=== PATIENT | male | born 1965 | race Caucasian/White ===

== ENCOUNTER 2016-07-20 06:58 | Outpatient (CLI) ==
--- NOTE | 2016-07-20 12:46 | MRI ---
EXAM: MRI of the left shoulder without contrast COMPARISON: MRI of the left shoulder 07/12/2015. Left shoulder radiographs 07/05/2015. HISTORY: Left shoulder pain with decreased range of motion. Rotator cuff repair in January,. Fall in June 2015. TECHNIQUE: Multiplanar noncontrast MR images of the left shoulder were acquired using a 1.2 [employer]lesh[employer] m [employer]. FINDINGS: There is marked supraspinatus tendinosis with moderate to marked infraspinatus and subsca pularis tendinosis as well. There is a progressive partial-thickness articular surface/rim rent tea r of the anterior insertional fibers of the supraspinatus measuring 1.4 x 0.9 cm extent with a near full-thickness component. There appear to be some thin residual intact bursal surface fibers at calvin t level. Small partial-thickness/intrasubstance tear with small intramuscular cyst involving the in fraspinatus at the critical zone and myotendinous junction. Thinning and articular surface irregula rity of the distal subscapularis consistent with a progressive partial-thickness articular surface t ear with intact bursal surface fibers identified. Moderate amount of fluid in the subacromial/subdel toid bursa. Limited assessment of the glenoid labrum on this non arthrographic study. Intrasubstance degenerati on and suspect superimposed tear of the superior posterior glenoid labrum. Mild glenohumeral joint osteoarthrosis without acute fracture dislocation. Small joint effusion. The long head of the biceps is located within the bicipital groove with tendinosis and tenosynovitis . Hypertrophic degenerative changes of the acromioclavicular joint with marginal osteophytes. Suscepti bility artifact adjacent the acromioclavicular joint with question of previous acromioplasty. There is a type 1 acromion. Small joint effusion with a defect involving the inferior acromioclavicular joint capsule which may be postoperative in nature. Question resection of the undersurface of the d istal clavicle. No abnormal widening of the acromioclavicular joint space.. IMPRESSION: 1. Marked rotator cuff tendinosis. Progressive insertional tear of the supraspinatus with a near f ull-thickness articular surface component. There is also a progressive partial-thickness articular surface tear of the distal subscapularis in addition to stable appearance of a partial-thickness/int rasubstance tear of the infraspinatus. 2. Fluid in the subacromial/subdeltoid bursa. 3. Hypertrophic degenerative changes of the acromioclavicular joint with findings suggesting previo us subacromial decompression. 4. Long head biceps tendinosis and tenosynovitis. 5. Intrasubstance degeneration and suspected superimposed tear of the superior to posterior glenoid labrum as described.
== END 2016-07-20 06:59 | disposition home or self-care (01) ==
LOC: RAD 06:58
PROVIDERS: ATTEND Orthopaedic Surgery
DX: S46.012D Strain of muscle(s) and tendon(s) of the rotator cuff of left shoulder, subsequent encounter (principal)

== ENCOUNTER 2016-09-06 08:15 | Outpatient (RCR) ==
--- NOTE | 2016-08-22 10:36 | RS.OPPTEV2 ---
Date of Note: 08/21/16 Visit #: 1 Date of Evaluation: 08/21/16 Payer Source: Workman's Comp Treatment Diagnosis: Left shoulder pain, s/p left shoulder debridement December 2015 History of Condition/Mechanism of Injury:: Patient notes that he fell at work on 07-02-15. Patient caught his fall with the left upper extremity. He attended Outpatient PT in August 2015 for treatment of the shoulder. He then had left shoulder debridement on 01/04/16 and attended Outpatient PT for ROM and strengthening. Reports pain has never gone away. Prior Level of Function.....Patient was independent with: ADL's, Self Care, Work /Vocation, Caregiving, Ambulation/Mobility, Community Integration/Access Functional Limitations: Sleep, Self Care, ADL's, Reaching, Pushing, Pulling, Lifting, Carrying Current Subjective/complaints:: Patient states his left shoulder has never quit hurting. States now it hurts in a different location. Reports pain at the lateral shoulder joint with certain movements of the shoulder. He is working and tries to avoid activities that increase his pain. He works at [employer] and his duties consist of various activities, such as swinging a sledgehammer, heavy lifting, and overhead work. He received a cortisone injection on and states it did not make a difference in his pain. States any reaching or working above chest height is painful. Treatment Side (optional): Left Medical History Medical History: Hypertension, Diabetes Smoking Status: Current every day smoker Patient's Goals: His goal is to get relief of left shoulder pain. Pain Assessment - Pain Description Pain Location: L shoulder Pain Description: Sharp, Aching Current Pain Intensity: mild at rest, increases with ROM above 80 degrees scaption and abduction Worst Pain Intensity: not rated Functional Outcome Measure UE Functional Index: 52 (52/80=35% impairment) - G Codes & Severity Modifier G Codes & Modifier: NA Source of G Code score: NA Observation - Observation Posture: Forward Head, Rounded Shoulders Handedness: Right Shoulder ROM: Right WFL's Shoulder Muscle Strength: Right WFL's - Left Shoulder ROM Comments: Patient demonstrates full PROM and AROM throughout the left shoulder. Reports pain beginning at ~80 degrees of scaption and abduction, and continues throughout further ROM. Right elbow, wrist, and hand AROM is WFL's. - Right Shoulder ROM Comments: Pain with resisted abduction and scaption. Demonstrates 4+/5 into abduction and scaption. All else demonstrates 4+ to 5/5 throughout. - Special Tests Shoulder Empty Can (Supraspinatus) Test: Positive Left Shoulder Speed's Sign Test: Positive Left Shoulder Drop Arm Test: Negative Left Shoulder Singh-Christopher Impingement Test: Positive Left Palpation Comments:: Patient reports tenderness and his most specific area of pain being over the insertion site of the supraspinatus and infraspinatus tendons. No tenderness reported over long head of the biceps tendon. Sensation - Sensation Right Upper Extremity: Intact/Normal Left Upper Extremity: Intact/Normal - Treatment Modality: Ultrasound Parameters/Method Applied: 1.5 w/cm2 continuous X 10 mins over insertion site of supraspinatus and infraspinatus tendons of left shoulder. Patient Position: Sitting Interventions - Exercise/Activities/Manual Therapy Exercises/Activities: Patient instructed in pendulum and resisted ER with green theraband for HEP. Manual Therapy: N/A HOME EXERCISE PROGRAM: pendulum and resisted ER with green theraband - Charges Total Direct Minutes: 45 mins Total Treatment Time: 45 mins Procedures billed for this date of service:: KEYLA Resendez, US Assessment Assessment: Patient presents to therapy with a diagnosis of Traumatic tear of the left rotator cuff, subsequent encounter. He reports pain in the lateral region of the shoulder joint, more specifically over the insertion sites of the supraspinatus and infraspinatus tendons. He has pain and difficulty performing reaching at and above chest height into scaption. He demonstrates potential to benefit from therapeutic activities, including strengthening of humeral depressors, and modalities to reduce his pain with ROM. Patient Education: Education of diagnosis, Body/Joint mechanics, Home Exercise Program, Home Safety, Activity Modification, Education of Plan of Care Rehab Potential: Good Short Term Goals Goal #1: Pt independent and compliant with basic HEP. Goal to be met by: 09/05/16 Goal #2: Right shoulder AROM into scaption with minimal discomfort. Goal to be met by: 09/05/16 Goal #3: Pt to demonstrate good postural awareness. Goal to be met by: 09/05/16 Goal #4: Tenderness at right shoulder joint decreased to minimal. Goal to be met by: 09/05/16 Skilled Nursing Goals Goal #1: Pt knows HEP and to continue exercises after D/C from therapy. Goal to be met by: 09/21/16 Goal #2: Score on UE functional scale improved to < 20% impairment. Goal to be met by: 09/21/16 Goal #3: Pt able to use right UE for all ADL's and reaching activities without pain. Goal to be met by: 09/21/16 Goal #4: Pt able to perform all work duties without difficulty or pain. Goal to be met by: 09/21/16 Plan - Treatment to be Provided Procedures: Therapeutic Exercises, Therapeutic Activity, Manual Therapy, Patient Education Modalities: Electrical Stimulation, Ultrasound/Phonophoresis, Cryotherapy, Hot Packs - Treatment Plan Frequency: 3 X week Duration: 3 weeks ORDER # VISITS AND/OR THROUGH DATE: 09/21/16 - Treatment Code (1) Left shoulder pain Qualifiers: Chronicity: chronic Qualified Description: Chronic left shoulder pain Qualifier Code(s): (M25.512) Pain in left shoulder (2) S/P shoulder surgery Comments: Z98.890
--- NOTE | 2016-08-22 11:36 | RS.OPPTDN ---
Subjective Date of Note: 08/22/16 Visit #: 2 Date of Evaluation: 08/21/16 Payer Source: Workman's Comp Treatment Diagnosis: Left shoulder pain, s/p left shoulder debridement December 2015 Current Subjective/complaints:: Patient pleasant ,cooperative,reports the most intense pain is with shoulder abduction. Pain Assessment - Pain Description Pain Location: L shoulder Pain Description: Sharp, Aching Current Pain Intensity: mild at rest, increases with ROM above 80 degrees scaption and abduction - Treatment Modality: Ultrasound Parameters/Method Applied: 10 mins. @ 1.5 w/cm2 ,continuous mode to L shoulder, RTC tendon insertion site. Patient Position: Sitting - Heat/Cryotherapy Treatment: Hot Pack (20 mins. prior to US) Interventions - Exercise/Activities/Manual Therapy Exercises/Activities: Reviewed HEP in pendulum and resisted ER with green theraband for HEP,while receiving US today. Total minutes of Exercise: 0 Manual Therapy: N/A Total minutes of Manual Therapy: 0 HOME EXERCISE PROGRAM: pendulum and resisted ER with green theraband - Charges Total Direct Minutes: 10 Total Treatment Time: 30 Procedures billed for this date of service:: hp,US Assessment: Abbreviated treatment today due to patient having to be elsewhere by 8:45 Am.He has good understanding of HEP,and to avoid any exercise that causes sharp or debilitating pain. Patient Education: Home Exercise Program, Home Safety, Education of Plan of Care Patient demonstrates compliance with HEP?: Yes Short Term Goals Goal #1: Pt independent and compliant with basic HEP. Goal to be met by: 09/05/16 Progress towards Goal:: Progressing Goal #2: Right shoulder AROM into scaption with minimal discomfort. Goal to be met by: 09/05/16 Goal #3: Pt to demonstrate good postural awareness. Goal to be met by: 09/05/16 Goal #4: Tenderness at right shoulder joint decreased to minimal. Goal to be met by: 09/05/16 Nursing Home Goals Goal #1: Pt knows HEP and to continue exercises after D/C from therapy. Goal to be met by: 09/21/16 Goal #2: Score on UE functional scale improved to < 20% impairment. Goal to be met by: 09/21/16 Goal #3: Pt able to use right UE for all ADL's and reaching activities without pain. Goal to be met by: 09/21/16 Goal #4: Pt able to perform all work duties without difficulty or pain. Goal to be met by: 09/21/16 Plan PLAN OF CARE EXPIRES ON:: 09/21/16 ORDER # VISITS AND/OR THROUGH DATE: 09/21/16 PLAN: Continue Plan of Care
--- NOTE | 2016-08-24 09:07 | RS.OPPTDN ---
Subjective Date of Note: 08/24/16 Visit #: 3 Date of Evaluation: 08/21/16 Payer Source: Workman's Comp Treatment Diagnosis: Left shoulder pain, s/p left shoulder debridement December 2015 Current Subjective/complaints:: Patient reports increased throbbing in the L UE after last session,has moderate pain today. Pain Assessment - Pain Description Pain Location: L shoulder Pain Description: Sharp, Throbbing, Aching Current Pain Intensity: 5/10 - Treatment Modality: Ultrasound Parameters/Method Applied: 10 mins. @ 1.5 w/cm2,continuous mode to L shoulder Patient Position: Sitting - Heat/Cryotherapy Treatment: Hot Pack (20 mins. prior to US,exercise) Interventions - Exercise/Activities/Manual Therapy Exercises/Activities: 10 mins. PROM to AAROM for flex/ext,IR/ER,scaption, abduction. Total minutes of Exercise: 10 Manual Therapy: N/A Total minutes of Manual Therapy: 0 HOME EXERCISE PROGRAM: pendulum and resisted ER with green theraband - Charges Total Direct Minutes: 20 Total Treatment Time: 40 Procedures billed for this date of service:: hp,US,ex 1 Assessment: Patient reports no pain with passive motion,but consistently has pain today with attempting to keep the L UE abducted,also with assistance the pain is still present.He reports no pain with pendulum exercises at home. Patient Education: Body/Joint mechanics, Home Exercise Program, Home Safety, Activity Modification Patient demonstrates compliance with HEP?: Yes Short Term Goals Goal #1: Pt independent and compliant with basic HEP. Goal to be met by: 09/05/16 Progress towards Goal:: Progressing Goal #2: Right shoulder AROM into scaption with minimal discomfort. Goal to be met by: 09/05/16 Goal #3: Pt to demonstrate good postural awareness. Goal to be met by: 09/05/16 Progress towards Goal:: Progressing Goal #4: Tenderness at right shoulder joint decreased to minimal. Goal to be met by: 09/05/16 Management Technician Goals Goal #1: Pt knows HEP and to continue exercises after D/C from therapy. Goal to be met by: 09/21/16 Progress towards goal: Progressing Goal #2: Score on UE functional scale improved to < 20% impairment. Goal to be met by: 09/21/16 Goal #3: Pt able to use L UE for all ADL's and reaching activities without pain. Goal to be met by: 09/21/16 Goal #4: Pt able to perform all work duties without difficulty or pain. Goal to be met by: 09/21/16 Plan PLAN OF CARE EXPIRES ON:: 09/21/16 ORDER # VISITS AND/OR THROUGH DATE: 09/21/16 PLAN: Continue Plan of Care
--- NOTE | 2016-08-28 11:27 | RS.OPPTDN ---
Subjective Date of Note: 08/28/16 Visit #: 4 Date of Evaluation: 08/21/16 Payer Source: Workman's Comp Treatment Diagnosis: Left shoulder pain, s/p left shoulder debridement December 2015 Current Subjective/complaints:: Patient reports having to use a paul-hammer at work last night and having increased left shoulder pain today. Reports pain at the posterior shoulder joint with trigger point release of the infraspinatus and teres minor. Pain Assessment - Pain Description Pain Location: L shoulder Pain Description: Sharp, Throbbing, Aching Current Pain Intensity: 5/10 - Treatment Modality: Ultrasound Parameters/Method Applied: [id number] at 1.5w/cm2 to the left shoulder joint with focus around the infraspinatus. Patient Position: Sitting - Heat/Cryotherapy Treatment: Hot Pack ([id number] to the left shoulder joint prior to US and EX. Patient in sitting. ) Interventions - Exercise/Activities/Manual Therapy Exercises/Activities: [id number]. PROM to AAROM for flex/ext, IR/ER, scaption, and abduction. Isometrics for left shoulder IR and ER in neutral. Total minutes of Exercise: 10mins Manual Therapy: x5mins Trigger point release left shoulder posterior joint for infraspinatus and teres minor. Total minutes of Manual Therapy: 5mins HOME EXERCISE PROGRAM: pendulum and resisted ER with green theraband - Charges Total Direct Minutes: 27mins Total Treatment Time: 47mins Procedures billed for this date of service:: HP, US, EX Assessment: Patient with increased soreness following use of heavy tools at work. Patient with active trigger points in posterior joint. Patient Education: Body/Joint mechanics, Home Exercise Program Patient demonstrates compliance with HEP?: Yes Short Term Goals Goal #1: Pt independent and compliant with basic HEP. Goal to be met by: 09/05/16 Progress towards Goal:: Progressing Goal #2: Right shoulder AROM into scaption with minimal discomfort. Goal to be met by: 09/05/16 Goal #3: Pt to demonstrate good postural awareness. Goal to be met by: 09/05/16 Progress towards Goal:: Progressing Goal #4: Tenderness at right shoulder joint decreased to minimal. Goal to be met by: 09/05/16 Snf Goals Goal #1: Pt knows HEP and to continue exercises after D/C from therapy. Goal to be met by: 09/21/16 Progress towards goal: Progressing Goal #2: Score on UE functional scale improved to < 20% impairment. Goal to be met by: 09/21/16 Goal #3: Pt able to use L UE for all ADL's and reaching activities without pain. Goal to be met by: 09/21/16 Goal #4: Pt able to perform all work duties without difficulty or pain. Goal to be met by: 09/21/16 Plan PLAN OF CARE EXPIRES ON:: 09/21/16 ORDER # VISITS AND/OR THROUGH DATE: 09/21/16 PLAN: Continue Plan of Care (Continue modalities and progress exercise to reduce pain and increase functional activity level.)
--- NOTE | 2016-08-30 10:02 | RS.OPPTDN ---
Subjective Date of Note: 08/30/16 Visit #: 5 Date of Evaluation: 08/21/16 Payer Source: Workman's Comp Treatment Diagnosis: Left shoulder pain, s/p left shoulder debridement December 2015 Current Subjective/complaints:: Patient reports continued soreness at the posterior left shoulder joint. He reports discomfort at superior joint with active assisted abduction, scaption, and ER, mainly above shoulder height. Pain Assessment - Pain Description Pain Location: L shoulder Pain Description: Sharp, Throbbing, Aching Current Pain Intensity: 5/10 - Treatment Modality: Ultrasound Parameters/Method Applied: [id number] at 1.5w/cm2 to the left shoulder joint prior to EX. Patient Position: Sitting - Heat/Cryotherapy Treatment: Hot Pack ([id number] to the left shoulder prior to US and EX. Patient in sitting. ) Interventions - Exercise/Activities/Manual Therapy Exercises/Activities: [id number]. PROM to AAROM for flex/ext, IR/ER, scaption, abduction, and horizontal abduction. Isometrics for left shoulder IR, ER, adduction, and extension all in neutral multiple reps. Total minutes of Exercise: 17mins Manual Therapy: [id number] Trigger point release left shoulder posterior joint for infraspinatus and teres minor. Also to traps with stretching. Patient in sitting. Total minutes of Manual Therapy: 10mins HOME EXERCISE PROGRAM: pendulum and resisted ER with green theraband - Charges Total Direct Minutes: 39mins Total Treatment Time: 59mins Procedures billed for this date of service:: HP, US, EX, MT Assessment: Patient continues to have pain with left shoulder ROM above shoulder height. He is able to progress resistance with isometrics. Patient Education: Body/Joint mechanics, Home Exercise Program, Home Safety Patient demonstrates compliance with HEP?: Yes Short Term Goals Goal #1: Pt independent and compliant with basic HEP. Goal to be met by: 09/05/16 Progress towards Goal:: Progressing Goal #2: Right shoulder AROM into scaption with minimal discomfort. Goal to be met by: 09/05/16 Progress towards Goal:: No Change Goal #3: Pt to demonstrate good postural awareness. Goal to be met by: 09/05/16 Progress towards Goal:: Progressing Goal #4: Tenderness at right shoulder joint decreased to minimal. Goal to be met by: 09/05/16 Slot Key Person Goals Goal #1: Pt knows HEP and to continue exercises after D/C from therapy. Goal to be met by: 09/21/16 Progress towards goal: Progressing Goal #2: Score on UE functional scale improved to < 20% impairment. Goal to be met by: 09/21/16 Goal #3: Pt able to use L UE for all ADL's and reaching activities without pain. Goal to be met by: 09/21/16 Goal #4: Pt able to perform all work duties without difficulty or pain. Goal to be met by: 09/21/16 Plan PLAN OF CARE EXPIRES ON:: 09/21/16 ORDER # VISITS AND/OR THROUGH DATE: 09/21/16 PLAN: Continue Plan of Care (Continue modalities and exercise to reduce pain and increase ability to perform all work duties.)
--- NOTE | 2016-09-01 09:40 | RS.OPPTDN ---
Subjective Date of Note: 09/01/16 Visit #: 6 Date of Evaluation: 08/21/16 Payer Source: Workman's Comp Treatment Diagnosis: Left shoulder pain, s/p left shoulder debridement December 2015 Current Subjective/complaints:: Patient reports continued discomfort at the posterior shoulder joint with movement and manual pressure. Pain in the superior shoulder joint with active and light resistive work. Pain Assessment - Pain Description Pain Location: L shoulder Pain Description: Sharp, Throbbing, Aching Current Pain Intensity: 5/10 - Treatment Modality: Ultrasound Parameters/Method Applied: [id number] at 1.5w/cm2 to the left shoulder with focus at superior and posterior joint prior to EX. Patient Position: Sitting - Heat/Cryotherapy Treatment: Hot Pack ([id number] to the left shoulder prior to US and EX. Patient in sitting. ) Interventions - Exercise/Activities/Manual Therapy Exercises/Activities: [id number]. PROM to AAROM for flex/ext, IR/ER, scaption, abduction, and horizontal abduction. Isometrics for left shoulder IR, ER, adduction, and extension all in neutral multiple reps. Gree theraband for bilateral shoulder ER, 2s/10reps. Attempts to hold manual resistance with left shoulder at 90 degrees flexion and in "empty-can" position. Total minutes of Exercise: 18mins Manual Therapy: [id number] Trigger point release left shoulder posterior joint for infraspinatus and teres minor. Also to trap trigger point release. Patient in sitting. Total minutes of Manual Therapy: 10mins HOME EXERCISE PROGRAM: pendulum and resisted ER with green theraband - Charges Total Direct Minutes: 40mins Total Treatment Time: 55mins Procedures billed for this date of service:: HP, US, EX, MT Assessment: Patient continues to have pain with resistance exercise. PROM is good with only min discomfort at end range. Patient Education: Body/Joint mechanics, Home Exercise Program, Activity Modification Comments: Reviewed dx, joint mechanics, and safety with work duties. Patient demonstrates compliance with HEP?: Yes Short Term Goals Goal #1: Pt independent and compliant with basic HEP. Goal to be met by: 09/05/16 (100%) Progress towards Goal:: Met Goal #2: Right shoulder AROM into scaption with minimal discomfort. Goal to be met by: 09/05/16 Progress towards Goal:: No Change Goal #3: Pt to demonstrate good postural awareness. Goal to be met by: 09/05/16 (50%) Progress towards Goal:: Progressing Goal #4: Tenderness at right shoulder joint decreased to minimal. Goal to be met by: 09/05/16 Progress towards Goal:: No Change Counseling Aide Goals Goal #1: Pt knows HEP and to continue exercises after D/C from therapy. Goal to be met by: 09/21/16 Progress towards goal: Progressing Goal #2: Score on UE functional scale improved to < 20% impairment. Goal to be met by: 09/21/16 Goal #3: Pt able to use L UE for all ADL's and reaching activities without pain. Goal to be met by: 09/21/16 Goal #4: Pt able to perform all work duties without difficulty or pain. Goal to be met by: 09/21/16 Progress towards goal: No Change Plan PLAN OF CARE EXPIRES ON:: 09/21/16 ORDER # VISITS AND/OR THROUGH DATE: 09/21/16 PLAN: Continue Plan of Care (Continue modalties and progress exercise to reduce pain and increase functional activities.)
--- NOTE | 2016-09-05 10:06 | RS.OPPTDN ---
Subjective Date of Note: 09/05/16 Visit #: 7 Date of Evaluation: 08/21/16 Payer Source: Workman's Comp Treatment Diagnosis: Left shoulder pain, s/p left shoulder debridement December 2015 Current Subjective/complaints:: Reports the L shoulder is about the same,still inpain and tender to palpate. Pain Assessment - Pain Description Pain Location: L shoulder Pain Description: Sharp, Throbbing, Aching Current Pain Intensity: 5/10 - Treatment Modality: Ultrasound Parameters/Method Applied: 10 mins. @ 1.5 w/cm2 ,continuous mode to L TRC insertion site. Patient Position: Supine - Heat/Cryotherapy Treatment: Hot Pack (20 mins. prior to US and ex.) Interventions - Exercise/Activities/Manual Therapy Exercises/Activities: [id number]. PROM to AAROM for flex/ext, IR/ER, scaption, abduction, and horizontal abduction. Isometrics for left shoulder IR, ER, adduction, and extension all in neutral multiple reps.Patient education for RTC anatomy,watched video using his cell phone and discussed the mechanics of the shoulder. Total minutes of Exercise: 25 Manual Therapy: NA Total minutes of Manual Therapy: 0 HOME EXERCISE PROGRAM: pendulum and resisted ER with green theraband - Charges Total Direct Minutes: 35 Total Treatment Time: 55 Procedures billed for this date of service:: ,US ex 2 Assessment: Patient has functional passive motion in all directions,tolerates isometrics with outpain ,except for resisted abduction elicits sharp pain.He continues to have pain at insertion site of supraspinatus with maintaining active shoulder abduction. Patient Education: Education of diagnosis, Body/Joint mechanics, Home Exercise Program, Home Safety, Activity Modification, Education of Plan of Care Patient demonstrates compliance with HEP?: Yes Short Term Goals Goal #1: Pt independent and compliant with basic HEP. Goal to be met by: 09/05/16 (100%) Progress towards Goal:: Met Goal #2: Right shoulder AROM into scaption with minimal discomfort. Goal to be met by: 09/05/16 Progress towards Goal:: No Change Goal #3: Pt to demonstrate good postural awareness. Goal to be met by: 09/05/16 Progress towards Goal:: Progressing Goal #4: Tenderness at right shoulder joint decreased to minimal. Goal to be met by: 09/05/16 Progress towards Goal:: No Change Rn Residential Goals Goal #1: Pt knows HEP and to continue exercises after D/C from therapy. Goal to be met by: 09/21/16 Progress towards goal: Progressing Goal #2: Score on UE functional scale improved to < 20% impairment. Goal to be met by: 09/21/16 Goal #3: Pt able to use L UE for all ADL's and reaching activities without pain. Goal to be met by: 09/21/16 Goal #4: Pt able to perform all work duties without difficulty or pain. Goal to be met by: 09/21/16 Progress towards goal: No Change Plan PLAN OF CARE EXPIRES ON:: 09/21/16 ORDER # VISITS AND/OR THROUGH DATE: 09/21/16 Comments:: Has follow-up appt. with Dr. Alvarez tomorrow.
--- NOTE | 2016-09-06 09:18 | RS.OPPTDN ---
Subjective Date of Note: 09/06/16 Visit #: 8 Date of Evaluation: 08/21/16 Payer Source: Workman's Comp Treatment Diagnosis: Left shoulder pain, s/p left shoulder debridement December 2015 Current Subjective/complaints:: Patient reports continued pain with active left shoulder abduction. Describes as a sharp pinch. Also, continue discomfort at the posterior shoulder joint with mod manual pressure with trigger point release. States pain was aggravated when he had to use a paul-hammer last week at work. Pain Assessment - Pain Description Pain Location: L shoulder Pain Description: Sharp, Throbbing, Aching Current Pain Intensity: 5/10 - Treatment Modality: Ultrasound Parameters/Method Applied: [id number] at 1.5w/cm2 to the left shoulder joint prior to EX and MT. Patient Position: Supine - Heat/Cryotherapy Treatment: Hot Pack ([id number] to the left shoulder prior to US and EX. Patient in supine today. ) Interventions - Exercise/Activities/Manual Therapy Exercises/Activities: [id number]. PROM to AAROM for flex/ext, IR/ER, scaption, abduction, and horizontal abduction. Isometrics for left shoulder IR, ER, adduction, and extension all in neutral multiple reps. Reviewed RTC mechancis and safety precautions. Total minutes of Exercise: 20mins Manual Therapy: 10mins trigger point release along infraspinatus and posterior joint musculature. Total minutes of Manual Therapy: 10mins HOME EXERCISE PROGRAM: pendulum, resisted ER with green theraband, isometrics all directions - Objective Findings Observations,measurements,etc.: Patient limited to approx 80 degrees left shoulder abduction due to pain. PROM WFL but limited due to discomfort at end range. - Charges Total Direct Minutes: 40mins Total Treatment Time: 60mins Procedures billed for this date of service:: HP, US, EX, MT Assessment: Modalites and manual therapy have given patient some relief of pain but no significant improvement overall. Patient continue to be limited due to pain with active abduction. Patient Education: Education of diagnosis, Body/Joint mechanics, Home Exercise Program, Home Safety, Activity Modification Patient demonstrates compliance with HEP?: Yes Short Term Goals Goal #1: Pt independent and compliant with basic HEP. Goal to be met by: 09/05/16 (100%) Progress towards Goal:: Met Goal #2: Right shoulder AROM into scaption with minimal discomfort. Goal to be met by: 09/05/16 Progress towards Goal:: No Change Goal #3: Pt to demonstrate good postural awareness. Goal to be met by: 09/05/16 Progress towards Goal:: Met Goal #4: Tenderness at right shoulder joint decreased to minimal. Goal to be met by: 09/05/16 Progress towards Goal:: No Change Nursing Home Goals Goal #1: Pt knows HEP and to continue exercises after D/C from therapy. Goal to be met by: 09/21/16 Progress towards goal: Progressing Goal #2: Score on UE functional scale improved to < 20% impairment. Goal to be met by: 09/21/16 Progress towards goal: No Change Goal #3: Pt able to use L UE for all ADL's and reaching activities without pain. Goal to be met by: 09/21/16 Progress towards goal: No Change Goal #4: Pt able to perform all work duties without difficulty or pain. Goal to be met by: 09/21/16 Progress towards goal: No Change Plan PLAN OF CARE EXPIRES ON:: 09/21/16 ORDER # VISITS AND/OR THROUGH DATE: 09/21/16 PLAN: Hold (Patient will return to physician for follow-up appointment. It is anticipated patient will be sent for further testing or treatment due to lack of progress and continued pain.)
== END 2016-09-08 ==
PROVIDERS: ATTEND Orthopaedic Surgery
DX: S46.012D Strain of muscle(s) and tendon(s) of the rotator cuff of left shoulder, subsequent encounter (principal)

== ENCOUNTER → 2016-11-08 | Outpatient (RCR) ==
--- NOTE | 2016-10-20 16:45 | RS.OPPTEV2 ---
Date of Note: 10/20/16 Visit #: 1 Date of Evaluation: 10/20/16 Payer Source: Workman's Comp Surgery Performed?: Yes Date of Procedure: 10/18/16 Treatment Diagnosis: Left shoulder pain, left shoulder stiffness, s/p RTC repair History of Condition/Mechanism of Injury:: Patient notes that he injured his left shoulder at work on 07-02-15. He had left shoulder debridement on 01/04/16 and attended Outpatient PT for ROM and strengthening. Continued shoulder pain led to the need for further surgery. Prior Level of Function.....Patient was independent with: ADL's, Self Care, Work /Vocation, Caregiving, Ambulation/Mobility, Community Integration/Access Functional Limitations: Sleep, Self Care, ADL's, Reaching, Pushing, Pulling, Lifting, Carrying Current Subjective/complaints:: Patient reports having surgery two days ago. States he has not removed the dressing. States he is taking his pain medication as ordered. He is wearing his sling constantly. States his will not let him drive. Patient reports most pain currently in the left upper traps. States he has a cryocuff, but has not used it much yet because he didn' t think any cold would get to the shoulder through the thick dressing. Treatment Side (optional): Left Medical History Medical History: Hypertension, Diabetes Smoking Status: Current every day smoker Hx Home Medications: Percocet,Keflex,crestor,cozaar Patient's Goals: His goal is to return to his previous level of function. Pain Assessment - Pain Description Pain Location: L shoulder Current Pain Intensity: 8/10 Worst Pain Intensity: 10/10 Functional Outcome Measure UE Functional Index: 13 (13/80=83.75% impairment) - G Codes & Severity Modifier G Codes & Modifier: NA Source of G Code score: Na Observation - Observation Inspection: Patient presents to therapy with a sling on the left shoulder. Upon removal of the sling, he demonstrates a thick pressure dressing the the shoulder. Upon removal of the dressing, he exhibits 3 scope sites with sutures in place. Demonstrates no drainage. Posture: Forward Head, Rounded Shoulders Handedness: Right Shoulder ROM: Left WFL's Shoulder Muscle Strength: Left WFL's - Right Shoulder ROM Comments: Patient tolerates passive left shoulder flexion and abduction to 85- 90 degrees. IR & ER passively 15-20 degrees. Full elbow ROM. Sensation - Sensation Right Upper Extremity: Intact/Normal Left Upper Extremity: Intact/Normal - Heat/Cryotherapy Treatment: Cryotherapy (X 15 mins to left shoulder following EVAL) Interventions - Exercise/Activities/Manual Therapy Exercises/Activities: Patient received PROM into all directions . Total minutes of Exercise: 15 mins Manual Therapy: NA HOME EXERCISE PROGRAM: pendulum, gentle scapula retraction, squeeze ball - Charges Total Direct Minutes: 48 mins Total Treatment Time: 58 mins Procedures billed for this date of service:: EVAL Low, CP Assessment Assessment: Patient presents 2 days s/p left shoulder SAD, DCR, RTC repair, labrum debridement, and biceps tenotomy. He exhibits limited PROM in all directions. He scores himself 83% impaired with use of the left UE at this time. He is unable to use the left UE for selfcare, ADL's, or any other home or work functional activities. He will benefit from skilled therapy to progress exercises as tolerated and per his surgeon's protocol to help him return to his prior level of function. Patient Education: Education of diagnosis, Body/Joint mechanics, Home Exercise Program, Home Safety, Activity Modification, Education of Plan of Care Rehab Potential: Good Short Term Goals Goal #1: Pt independent and compliant with basic HEP. Goal to be met by: 11/03/16 Goal #2: PROM of the left shoulder WFL's. Goal to be met by: 11/03/16 Goal #3: Patient able to tolerate PROM with minimal reports of pain. Goal to be met by: 11/03/16 Goal #4: Pt to demonstrate good postural awareness. Goal to be met by: 11/03/16 Assisted Goals Goal #1: Pt knows HEP and to continue exercises after D/C from therapy. Goal to be met by: 01/18/17 Goal #2: Score on UE functional scale improved to < 20% impairment. Goal to be met by: 01/18/17 Goal #3: Pt to use left UE for all selfcare, ADL's, and functional reaching w/o pain Goal to be met by: 01/18/17 Goal #4: Pt able to return to work with minimal limitations. Goal to be met by: 01/18/17 Plan - Treatment to be Provided Procedures: Therapeutic Exercises, Therapeutic Activity, Manual Therapy, Patient Education Modalities: Electrical Stimulation, Ultrasound/Phonophoresis, Cryotherapy, Hot Packs - Treatment Plan Frequency: 3 X week Duration: 12 weeks ORDER # VISITS AND/OR THROUGH DATE: 01/18/17 - Treatment Code (1) Shoulder pain Qualifiers: Laterality: left Chronicity: acute Qualified Description: Acute pain of left shoulder Qualifier Code(s): (M25.512) Pain in left shoulder (2) Stiffness of right shoulder joint Comments: M25.611 (3) S/P shoulder surgery Comments: Z98.890
--- NOTE | 2016-10-23 10:46 | RS.OPPTDN ---
Subjective Date of Note: 10/23/16 Visit #: 2 Date of Evaluation: 10/20/16 Payer Source: Workman's Comp Treatment Diagnosis: Left shoulder pain, left shoulder stiffness, s/p RTC repair Current Subjective/complaints:: Patient states he is sleeping in his recliner. Reports he has taken his pain meds this morning and was able to drive to his appt. 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 Asks when he can play golf or pool. Pain Assessment - Pain Description Pain Location: L shoulder Current Pain Intensity: Does not rate, pain pill prior to PT. Describes "sore" - Heat/Cryotherapy Treatment: Cryotherapy (20 mins after therex to the L shoulder in supine) Interventions - Exercise/Activities/Manual Therapy Exercises/Activities: PROM all dir of L shoulder, elbow sup/pron, in supine. Active wrist motions, 5 and 7# digiflexors x 10 each. Education of diagnosis and precautions/abiding by protocol. 25 mins Total minutes of Exercise: 25 Manual Therapy: NA HOME EXERCISE PROGRAM: pendulum, gentle scapula retraction, squeeze ball - Charges Total Direct Minutes: 25 Total Treatment Time: 45 Procedures billed for this date of service:: cp, ex2 Assessment: Patient appears to olegario all therex well. He is able to relax and no guarding except for with eccentric shoulder flexion intermittently. He has been working on instructed HEP. He is eager to return to golf and pool and was told to ask his ortho at follow up 11/08/16. Patient Education: Education of diagnosis, Body/Joint mechanics, Home Exercise Program, Home Safety, Activity Modification, Education of Plan of Care Short Term Goals Goal #1: Pt independent and compliant with basic HEP. Goal to be met by: 11/03/16 Goal #2: PROM of the left shoulder WFL's. Goal to be met by: 11/03/16 Goal #3: Patient able to tolerate PROM with minimal reports of pain. Goal to be met by: 11/03/16 Goal #4: Pt to demonstrate good postural awareness. Goal to be met by: 11/03/16 Manager Managing Goals Goal #1: Pt knows HEP and to continue exercises after D/C from therapy. Goal to be met by: 01/18/17 Goal #2: Score on UE functional scale improved to < 20% impairment. Goal to be met by: 01/18/17 Goal #3: Pt to use left UE for all selfcare, ADL's, and functional reaching w/o pain Goal to be met by: 01/18/17 Goal #4: Pt able to return to work with minimal limitations. Goal to be met by: 01/18/17 Plan PLAN OF CARE EXPIRES ON:: 01/16/17 ORDER # VISITS AND/OR THROUGH DATE: 01/18/17 PLAN: Progress Exercises
--- NOTE | 2016-10-25 15:26 | RS.OPPTDN ---
Subjective Date of Note: 10/25/16 Visit #: 3 Date of Evaluation: 10/20/16 Payer Source: Workman's Comp Treatment Diagnosis: Left shoulder pain, left shoulder stiffness, s/p RTC repair Current Subjective/complaints:: Patient reports some increased left neck and shoulder discomfort this morning. States he feels he slept wrong. Reports shoulder feels better follwoing PROM. Pain Assessment - Pain Description Pain Location: L shoulder Current Pain Intensity: 5/10 average this morning - Heat/Cryotherapy Treatment: Cryotherapy ([id number] to left shoulder prior to EX and [id number] following EX. Patient in supine. ) Interventions - Exercise/Activities/Manual Therapy Exercises/Activities: PROM all dir of L shoulder, elbow, and wrist with patient in supine. Active wrist motions. Shoulder shrugs and scap retraction. Assisted cervical lateral flexion stretching. Reveiwed safety and HEP of [place]. Total minutes of Exercise: 30mins Manual Therapy: NA HOME EXERCISE PROGRAM: pendulum, gentle scapula retraction, squeeze ball, cervical lateral flexion stretching. - Charges Total Direct Minutes: 30mins Total Treatment Time: 55mins Procedures billed for this date of service:: CP, EX2 Assessment: Patient progressing with PROM. Patient Education: Body/Joint mechanics, Home Exercise Program, Home Safety Patient demonstrates compliance with HEP?: Yes Short Term Goals Goal #1: Pt independent and compliant with basic HEP. Goal to be met by: 11/03/16 Progress towards Goal:: Progressing Goal #2: PROM of the left shoulder WFL's. Goal to be met by: 11/03/16 Progress towards Goal:: Progressing Goal #3: Patient able to tolerate PROM with minimal reports of pain. Goal to be met by: 11/03/16 Progress towards Goal:: Progressing Goal #4: Pt to demonstrate good postural awareness. Goal to be met by: 11/03/16 Half-Way Goals Goal #1: Pt knows HEP and to continue exercises after D/C from therapy. Goal to be met by: 01/18/17 Goal #2: Score on UE functional scale improved to < 20% impairment. Goal to be met by: 01/18/17 Goal #3: Pt to use left UE for all selfcare, ADL's, and functional reaching w/o pain Goal to be met by: 01/18/17 Goal #4: Pt able to return to work with minimal limitations. Goal to be met by: 01/18/17 Plan PLAN OF CARE EXPIRES ON:: 01/18/17 ORDER # VISITS AND/OR THROUGH DATE: 01/18/17 PLAN: Continue Plan of Care
--- NOTE | 2016-10-27 12:13 | RS.OPPTDN ---
Subjective Date of Note: 10/27/16 Visit #: 4 Date of Evaluation: 10/20/16 Payer Source: Workman's Comp Treatment Diagnosis: Left shoulder pain, left shoulder stiffness, s/p RTC repair Current Subjective/complaints:: Patient reports increased discomfort in the left shoulder and scapular region that kept him from sleeping last night. Patient reports feeling much better following manual therapy. Pain Assessment - Pain Description Pain Location: L shoulder Current Pain Intensity: 7/10 average this morning - Heat/Cryotherapy Treatment: Cryotherapy ([id number] prior to and [id number] following EX and MT. Patient in supine. ) Interventions - Exercise/Activities/Manual Therapy Exercises/Activities: PROM all directions of L shoulder, elbow, and wrist with patient in supine. Active wrist motions. Shoulder shrugs and scap retraction. Assisted cervical lateral flexion stretching. Reveiwed safety precautions and HEP. Total minutes of Exercise: [id number] Manual Therapy: [id number] to the left traps and along the mid scapular border. Trigger point release. Total minutes of Manual Therapy: 15mins HOME EXERCISE PROGRAM: pendulum, gentle scapula retraction, squeeze ball, cervical lateral flexion stretching. - Charges Total Direct Minutes: 30mins Total Treatment Time: 55mins Procedures billed for this date of service:: CP, EX2 Assessment: Patient with flair-up of symptoms but responds to manual therapy. Patient Education: Home Exercise Program, Home Safety, Activity Modification Comments: Reviewed dx, mechanics and safety precautions. Patient demonstrates compliance with HEP?: Yes Short Term Goals Goal #1: Pt independent and compliant with basic HEP. Goal to be met by: 11/03/16 Progress towards Goal:: Progressing Goal #2: PROM of the left shoulder WFL's. Goal to be met by: 11/03/16 Progress towards Goal:: Progressing Goal #3: Patient able to tolerate PROM with minimal reports of pain. Goal to be met by: 11/03/16 Progress towards Goal:: Progressing Goal #4: Pt to demonstrate good postural awareness. Goal to be met by: 11/03/16 Senior Living Goals Goal #1: Pt knows HEP and to continue exercises after D/C from therapy. Goal to be met by: 01/18/17 Goal #2: Score on UE functional scale improved to < 20% impairment. Goal to be met by: 01/18/17 Goal #3: Pt to use left UE for all selfcare, ADL's, and functional reaching w/o pain Goal to be met by: 01/18/17 Goal #4: Pt able to return to work with minimal limitations. Goal to be met by: 01/18/17 Plan PLAN OF CARE EXPIRES ON:: 01/18/17 ORDER # VISITS AND/OR THROUGH DATE: 01/18/17 PLAN: Continue Plan of Care (Continue with ROM and plan for removal of sutures on Sunday as it will be post-op day 12.)
--- NOTE | 2016-10-30 10:56 | RS.OPPTDN ---
Subjective Date of Note: 10/30/16 Visit #: 5 Date of Evaluation: 10/20/16 Payer Source: Workman's Comp Treatment Diagnosis: Left shoulder pain, left shoulder stiffness, s/p RTC repair Current Subjective/complaints:: Patient reports continued discomfort in the left shoulder blade area and into shoulder joint. Pain Assessment - Pain Description Pain Location: L shoulder Current Pain Intensity: moderate Other Comments regarding Pain:: States he continues to take pain meds as prescribed to manage pain. - Heat/Cryotherapy Treatment: Cryotherapy ([id number] to the left shoulder prior to EX and [id number] following. Patient in supine. ) Interventions - Exercise/Activities/Manual Therapy Exercises/Activities: PROM all directions of L shoulder, elbow, and wrist with patient in supine. Active wrist motions. Shoulder shrugs and scap retraction. Assisted cervical lateral flexion stretching. Reveiwed safety precautions and HEP. Total minutes of Exercise: 15mins Manual Therapy: [id number] to the left traps and along the mid scapular border. Trigger point release. Total minutes of Manual Therapy: 10mins HOME EXERCISE PROGRAM: pendulum, gentle scapula retraction, squeeze ball, cervical lateral flexion stretching. - Objective Findings Observations,measurements,etc.: Patients 3 incision sites around the left shoulder joint prepped and cleaned with povidone iodine swab, then sutures removed and steri-strips applied. 5mins - Charges Total Direct Minutes: 30mins Total Treatment Time: 55mins Procedures billed for this date of service:: CP, EX, MT Assessment: Patient continues to have discomfort right upper shoulder and scapular region. Patient Education: Body/Joint mechanics, Home Exercise Program, Home Safety, Activity Modification Patient demonstrates compliance with HEP?: Yes Short Term Goals Goal #1: Pt independent and compliant with basic HEP. Goal to be met by: 11/03/16 Progress towards Goal:: Progressing Goal #2: PROM of the left shoulder WFL's. Goal to be met by: 11/03/16 Progress towards Goal:: Progressing Goal #3: Patient able to tolerate PROM with minimal reports of pain. Goal to be met by: 11/03/16 Progress towards Goal:: Progressing Goal #4: Pt to demonstrate good postural awareness. Goal to be met by: 11/03/16 Progress towards Goal:: Progressing Digital Controls Technical Officer Goals Goal #1: Pt knows HEP and to continue exercises after D/C from therapy. Goal to be met by: 01/18/17 Goal #2: Score on UE functional scale improved to < 20% impairment. Goal to be met by: 01/18/17 Goal #3: Pt to use left UE for all selfcare, ADL's, and functional reaching w/o pain Goal to be met by: 01/18/17 Goal #4: Pt able to return to work with minimal limitations. Goal to be met by: 01/18/17 Plan PLAN OF CARE EXPIRES ON:: 01/18/17 ORDER # VISITS AND/OR THROUGH DATE: 01/18/17 PLAN: Continue Plan of Care
--- NOTE | 2016-10-30 11:37 | RS.CSNOTE ---
PT Case Note Date of Note: 10/30/16 Note: Patients Exhibition Organiser Adelia called to discuss patients increased pain and muscle spasms in left shoulder blade and upper back. States patient has asked about going for a massage. She asked if therapy can do this during treatment sessions. Advised Exhibition Organiser that manual therapy was on POC and we had been working on some trigger point release and will increase manual therapy as needed.
--- NOTE | 2016-11-01 09:32 | RS.OPPTDN ---
Subjective Date of Note: 11/01/16 Visit #: 6 Date of Evaluation: 10/20/16 Payer Source: Workman's Comp Treatment Diagnosis: Left shoulder pain, left shoulder stiffness, s/p RTC repair Current Subjective/complaints:: Patient reports feeling much better today. States muscle spasms have improved with manual therapy. Spoke with Dr. Quiroga's office concerning protocol and was advised patient will receive a detailed protocol at first follow-up appointment on November 07. Pain Assessment - Pain Description Pain Location: L shoulder Current Pain Intensity: mild to moderate - Heat/Cryotherapy Treatment: Cryotherapy ([id number] to the left shoulder prior to EX. Patient in supine. ) Interventions - Exercise/Activities/Manual Therapy Exercises/Activities: PROM all directions of L shoulder, elbow, and wrist with patient in supine. Active wrist motions. Shoulder shrugs and scap retraction. Assisted cervical lateral flexion stretching. Assisted patient with table slide motion of short flexion/extension. Reveiwed safety precautions and HEP. Total minutes of Exercise: 14mins Manual Therapy: [id number] to the left traps and along the mid scapular border. Trigger point release. Total minutes of Manual Therapy: 10mins HOME EXERCISE PROGRAM: pendulum, gentle scapula retraction, squeeze ball, cervical lateral flexion stretching. - Objective Findings Observations,measurements,etc.: Passive left shoulder flexion to 142 degrees, abd to 95 degrees, and ER to approx 45 degrees. - Charges Total Direct Minutes: 24mins Total Treatment Time: 44mins Procedures billed for this date of service:: CP, EX, MT Assessment: Patient progressing well with PROM and responding to manual therapy. Patient Education: Body/Joint mechanics, Home Exercise Program, Activity Modification Patient demonstrates compliance with HEP?: Yes Short Term Goals Goal #1: Pt independent and compliant with basic HEP. Goal to be met by: 11/03/16 Progress towards Goal:: Progressing Goal #2: PROM of the left shoulder WFL's. Goal to be met by: 11/03/16 Progress towards Goal:: Progressing Goal #3: Patient able to tolerate PROM with minimal reports of pain. Goal to be met by: 11/03/16 Progress towards Goal:: Progressing Goal #4: Pt to demonstrate good postural awareness. Goal to be met by: 11/03/16 Progress towards Goal:: Progressing Intermediate Goals Goal #1: Pt knows HEP and to continue exercises after D/C from therapy. Goal to be met by: 01/18/17 Goal #2: Score on UE functional scale improved to < 20% impairment. Goal to be met by: 01/18/17 Goal #3: Pt to use left UE for all selfcare, ADL's, and functional reaching w/o pain Goal to be met by: 01/18/17 Goal #4: Pt able to return to work with minimal limitations. Goal to be met by: 01/18/17 Plan PLAN OF CARE EXPIRES ON:: 01/18/17 ORDER # VISITS AND/OR THROUGH DATE: 01/18/17 PLAN: Continue Plan of Care
--- NOTE | 2016-11-03 10:00 | RS.OPPTDN ---
Subjective Date of Note: 11/03/16 Visit #: 7 Date of Evaluation: 10/20/16 Payer Source: Workman's Comp Treatment Diagnosis: Left shoulder pain, left shoulder stiffness, s/p RTC repair Current Subjective/complaints:: Patient states that he is feeling better today. Reports he has improved flexibility, but most of his pain is now at the L scapula. Pain Assessment - Pain Description Pain Location: L shoulder Current Pain Intensity: does not rate, but says it is much better than last session - Heat/Cryotherapy Treatment: Cryotherapy (20 mins to the L shoulder in supine prior and after therex) Interventions - Exercise/Activities/Manual Therapy Exercises/Activities: PROM all directions of L shoulder, elbow, and wrist with patient in supine. Active wrist motions. Shoulder shrugs and scap retraction. Assisted cervical lateral flexion stretching. Assisted patient with table slide motion of short flexion/extension. Reveiwed safety precautions and HEP. Total minutes of Exercise: 25 Manual Therapy: [id number] to the left traps and along the mid scapular border. Trigger point release. HOME EXERCISE PROGRAM: pendulum, gentle scapula retraction, squeeze ball, cervical lateral flexion stretching. - Charges Total Direct Minutes: 25 Total Treatment Time: 60 Procedures billed for this date of service:: cp, ex2 Assessment: Patient demo good PROM all directions to WFL and mostly pain free. He is having less overall pain to the L UE, but is now experiencing intermittent soreness to the L scapula. He has intermittent popping to during passive shoulder flexion/ext. Patient Education: Education of diagnosis, Body/Joint mechanics, Home Exercise Program, Home Safety, Activity Modification, Education of Plan of Care Patient demonstrates compliance with HEP?: Yes Short Term Goals Goal #1: Pt independent and compliant with basic HEP. Goal to be met by: 11/03/16 Progress towards Goal:: Progressing Goal #2: PROM of the left shoulder WFL's. Goal to be met by: 11/03/16 Progress towards Goal:: Progressing Goal #3: Patient able to tolerate PROM with minimal reports of pain. Goal to be met by: 11/03/16 Progress towards Goal:: Progressing Goal #4: Pt to demonstrate good postural awareness. 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 Goal to be met by: 01/18/17 Goal #2: Score on UE functional scale improved to < 20% impairment. Goal to be met by: 01/18/17 Goal #3: Pt to use left UE for all selfcare, ADL's, and functional reaching w/o pain Goal to be met by: 01/18/17 Goal #4: Pt able to return to work with minimal limitations. Goal to be met by: 01/18/17 Plan PLAN OF CARE EXPIRES ON:: 01/18/17 ORDER # VISITS AND/OR THROUGH DATE: 01/18/17 PLAN: Progress Exercises
--- NOTE | 2016-11-08 09:41 | RS.OPPTDN ---
Subjective Date of Note: 11/08/16 Visit #: 8 Date of Evaluation: 10/20/16 Payer Source: Workman's Comp Treatment Diagnosis: Left shoulder pain, left shoulder stiffness, s/p RTC repair Current Subjective/complaints:: Patient reports physician was pleased with his progress at his follow-up appointment yesterday. Patient present orders to continue and states he is to wear sling one more week. Reports left shoulder feels much better following PROM and manual therapy to the scapular region. Pain Assessment - Pain Description Pain Location: L shoulder Current Pain Intensity: does not rate, but says it is much better than last session - Heat/Cryotherapy Treatment: Cryotherapy ([id number] prior to and 10mins following EX. Patient in supine. ) Interventions - Exercise/Activities/Manual Therapy Exercises/Activities: PROM all directions of L shoulder, elbow, and wrist with patient in supine. Active wrist motions. Shoulder shrugs and scap retraction. Assisted cervical lateral flexion stretching. Total minutes of Exercise: 20mins Manual Therapy: [id number] to the left traps and along the mid scapular border. Trigger point release. Total minutes of Manual Therapy: 10mins HOME EXERCISE PROGRAM: pendulum, gentle scapula retraction, squeeze ball, cervical lateral flexion stretching. - Charges Total Direct Minutes: 30mins Total Treatment Time: 55mins Procedures billed for this date of service:: CP, EX, MT Assessment: Patient reporting reduction in shoulder discomfort and muscle spasms at mid scapula. Patient Education: Body/Joint mechanics, Home Exercise Program, Home Safety Patient demonstrates compliance with HEP?: Yes Short Term Goals Goal #1: Pt independent and compliant with basic HEP. Goal to be met by: 11/03/16 (50%) Progress towards Goal:: Progressing Goal #2: PROM of the left shoulder WFL's. Goal to be met by: 11/03/16 (75%) Progress towards Goal:: Progressing Goal #3: Patient able to tolerate PROM with minimal reports of pain. Goal to be met by: 11/03/16 (100%) Progress towards Goal:: Met Goal #4: Pt to demonstrate good postural awareness. Goal to be met by: 11/03/16 Progress towards Goal:: Progressing Stem Lead Former Goals Goal #1: Pt knows HEP and to continue exercises after D/C from therapy. Goal to be met by: 01/18/17 Goal #2: Score on UE functional scale improved to < 20% impairment. Goal to be met by: 01/18/17 Goal #3: Pt to use left UE for all selfcare, ADL's, and functional reaching w/o pain Goal to be met by: 01/18/17 Goal #4: Pt able to return to work with minimal limitations. Goal to be met by: 01/18/17 Plan PLAN OF CARE EXPIRES ON:: 01/18/17 ORDER # VISITS AND/OR THROUGH DATE: 01/18/17 PLAN: Continue Plan of Care (Continue PROM this week and progress to AAROM next week per orders.)
== END ==
PROVIDERS: ATTEND Orthopaedic Surgery Sports Medicine
DX: Z51.89 Encounter for other specified aftercare (principal); S46.012D Strain of muscle(s) and tendon(s) of the rotator cuff of left shoulder, subsequent encounter; M25.512 Pain in left shoulder; M25.611 Stiffness of right shoulder, not elsewhere classified; Z98.890 Other specified postprocedural states

== ENCOUNTER 2016-12-07 08:00 | Outpatient (RCR) ==
--- NOTE | 2016-11-10 11:02 | RS.OPPTDN ---
Subjective Date of Note: 11/10/16 Visit #: 9 Date of Evaluation: 10/20/16 Payer Source: Workman's Comp Treatment Diagnosis: Left shoulder pain, left shoulder stiffness, s/p RTC repair Current Subjective/complaints:: Patient reports continued muscle tension and spasms in the left scapular region which he feels is due to wearing sling. States he has reduced pain and muscle tension following PROM and manual therapy. Pain Assessment - Pain Description Pain Location: L shoulder Current Pain Intensity: mod soreness shoulder joint and scapular region - Heat/Cryotherapy Treatment: Cryotherapy ([id number] to left shoulder joint prior to EX and 10mins following. Patient in supine. ) Interventions - Exercise/Activities/Manual Therapy Exercises/Activities: PROM all directions of L shoulder, elbow, and wrist with patient in supine. Active wrist motions. Shoulder shrugs and scap retraction. Assisted cervical lateral flexion stretching. Total minutes of Exercise: 15mins Manual Therapy: [id number] to the left traps and along the mid scapular border. Trigger point release. Total minutes of Manual Therapy: 10mins HOME EXERCISE PROGRAM: pendulum, gentle scapula retraction, squeeze ball, cervical lateral flexion stretching. - Objective Findings Observations,measurements,etc.: Patient demos passive left shoulder flexion to 155 degrees, abduction to 120 degrees, and ER to 65 degrees. - Charges Total Direct Minutes: 25mins Total Treatment Time: 50mins Procedures billed for this date of service:: CP, EX, MT Assessment: Patient continues to report reduction in pain and muscle tension with PROM and manual therapy. Will progress to AAROM next week per physicians orders. Patient Education: Body/Joint mechanics, Home Exercise Program, Home Safety, Activity Modification Patient demonstrates compliance with HEP?: Yes Short Term Goals Goal #1: Pt independent and compliant with basic HEP. Goal to be met by: 11/03/16 (60%) Progress towards Goal:: Progressing Goal #2: PROM of the left shoulder WFL's. Goal to be met by: 11/03/16 (90%) Progress towards Goal:: Progressing Goal #3: Patient able to tolerate PROM with minimal reports of pain. Goal to be met by: 11/03/16 (100%) Progress towards Goal:: Met Goal #4: Pt to demonstrate good postural awareness. 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 Goal to be met by: 01/18/17 Goal #2: Score on UE functional scale improved to < 20% impairment. Goal to be met by: 01/18/17 Goal #3: Pt to use left UE for all selfcare, ADL's, and functional reaching w/o pain Goal to be met by: 01/18/17 Goal #4: Pt able to return to work with minimal limitations. Goal to be met by: 01/18/17 Plan PLAN OF CARE EXPIRES ON:: 01/18/17 ORDER # VISITS AND/OR THROUGH DATE: 01/18/17 PLAN: Continue Plan of Care (Continue PROM and progress to AAROM next week.)
--- NOTE | 2016-11-13 10:38 | RS.OPPTDN ---
Subjective Date of Note: 11/13/16 Visit #: 10 Date of Evaluation: 10/20/16 Payer Source: Workman's Comp Treatment Diagnosis: Left shoulder pain, left shoulder stiffness, s/p RTC repair Current Subjective/complaints:: Patient reports improvement in let shoulder discomfort with PROM today. States he continues to have increased muscle tension in the left shoulder blade area which he feels is due to wearing sling. Pain Assessment - Pain Description Pain Location: L shoulder Current Pain Intensity: mod soreness shoulder joint and scapular region - Heat/Cryotherapy Treatment: Cryotherapy ([id number] prior to and 10mins following EX. Patient in supine. ) Interventions - Exercise/Activities/Manual Therapy Exercises/Activities: PROM all directions left shoulder, elbow, and wrist. Shoulder shrugs and scap retraction. Light isometric wrist and elbow flexion and extension. Total minutes of Exercise: 15mins Manual Therapy: [id number] to the left traps and along the mid scapular border. Trigger point release. Total minutes of Manual Therapy: 10mins HOME EXERCISE PROGRAM: pendulum, gentle scapula retraction, squeeze ball, cervical lateral flexion stretching. - Objective Findings Observations,measurements,etc.: Demos approx 170 degrees left shoulder flexion. - Charges Total Direct Minutes: 25mins Total Treatment Time: 50mins Procedures billed for this date of service:: CP, EX, MT Assessment: Patient progressing well with PROM. He will be able to progress to AAROM next session. Patient Education: Education of diagnosis, Body/Joint mechanics, Home Exercise Program, Activity Modification Patient demonstrates compliance with HEP?: Yes Short Term Goals Goal #1: Pt independent and compliant with basic HEP. Goal to be met by: 11/03/16 (60%) Progress towards Goal:: Progressing Goal #2: PROM of the left shoulder WFL's. Goal to be met by: 11/03/16 (100%) Progress towards Goal:: Met Goal #3: Patient able to tolerate PROM with minimal reports of pain. Goal to be met by: 11/03/16 (100%) Progress towards Goal:: Met Goal #4: Pt to demonstrate good postural awareness. Goal to be met by: 11/03/16 (50%) Progress towards Goal:: Progressing Alf Goals Goal #1: Pt knows HEP and to continue exercises after D/C from therapy. Goal to be met by: 01/18/17 Goal #2: Score on UE functional scale improved to < 20% impairment. Goal to be met by: 01/18/17 Goal #3: Pt to use left UE for all selfcare, ADL's, and functional reaching w/o pain Goal to be met by: 01/18/17 Goal #4: Pt able to return to work with minimal limitations. Goal to be met by: 01/18/17 Plan PLAN OF CARE EXPIRES ON:: 01/18/17 ORDER # VISITS AND/OR THROUGH DATE: 01/18/17 PLAN: Continue Plan of Care (Continue and progress with AAROM next session per physicians orders.)
--- NOTE | 2016-11-15 11:51 | RS.OPPTDN ---
Subjective Date of Note: 11/15/16 Visit #: 11 Date of Evaluation: 10/20/16 Payer Source: Workman's Comp Treatment Diagnosis: Left shoulder pain, left shoulder stiffness, s/p RTC repair Current Subjective/complaints:: Reports left shoulder feels better after exercise today. Pain Assessment - Pain Description Pain Location: L shoulder Current Pain Intensity: mod soreness shoulder joint and scapular region - Heat/Cryotherapy Treatment: Cryotherapy ([id number] prior to EX. Patient in sitting. ) Interventions - Exercise/Activities/Manual Therapy Exercises/Activities: [id number] PROM all directions left shoulder, elbow, and wrist. Isometric shoulder add, ext, abd, IR and ER. Isometric triceps and bicep , wrist flexion and extension. Began wand for overhead shoulder flexion and ER in supine. Isometric horizontal adduction with ball between hands and shoulder joints at 90 degrees. In sitting, assisted left shoulder flexion, scaption, and short abduction. Wand for flexion to 90 degrees and short range ER. Controlled extension with assist from overhead to promote eccentric contraction of left shoulder. Shoulder shrugs and scap retraction. Total minutes of Exercise: 30mins Manual Therapy: [id number] to the left traps, along the mid scapular border, and posterior shoulder joint for trigger point release. Total minutes of Manual Therapy: 10mins HOME EXERCISE PROGRAM: pendulum, gentle scapula retraction, squeeze ball, cervical lateral flexion stretching. Wand for shoulder flexion and ER in supine and to shoulder height in sitting. - Charges Total Direct Minutes: 40mins Total Treatment Time: 55mins Procedures billed for this date of service:: CP, EX2, MT Assessment: Patient tolerates initiation of active assist exercise well. Patient Education: Body/Joint mechanics, Home Exercise Program, Home Safety, Activity Modification Patient demonstrates compliance with HEP?: Yes Short Term Goals Goal #1: Pt independent and compliant with basic HEP. Goal to be met by: 11/03/16 (70%) Progress towards Goal:: Progressing Goal #2: PROM of the left shoulder WFL's. Goal to be met by: 11/03/16 (100%) Progress towards Goal:: Met Goal #3: Patient able to tolerate PROM with minimal reports of pain. Goal to be met by: 11/03/16 (100%) Progress towards Goal:: Met Goal #4: Pt to demonstrate good postural awareness. Goal to be met by: 11/03/16 (55%) Progress towards Goal:: Progressing Intermediate Goals Goal #1: Pt knows HEP and to continue exercises after D/C from therapy. Goal to be met by: 01/18/17 Progress towards goal: Progressing Goal #2: Score on UE functional scale improved to < 20% impairment. Goal to be met by: 01/18/17 Goal #3: Pt to use left UE for all selfcare, ADL's, and functional reaching w/o pain Goal to be met by: 01/18/17 Goal #4: Pt able to return to work with minimal limitations. Goal to be met by: 01/18/17 Plan PLAN OF CARE EXPIRES ON:: 01/18/17 ORDER # VISITS AND/OR THROUGH DATE: 01/18/17 PLAN: Continue Plan of Care (Continue and progress active assisted exercise per physicians orders.)
--- NOTE | 2016-11-20 10:40 | RS.OPPTDN ---
Subjective Date of Note: 11/20/16 Visit #: 12 Date of Evaluation: 10/20/16 Payer Source: Workman's Comp Treatment Diagnosis: Left shoulder pain, left shoulder stiffness, s/p RTC repair Current Subjective/complaints:: Patient reports working on AAROM at home. States he is using the left UE for light activities and keeps elbow at side. Pain Assessment - Pain Description Pain Location: L shoulder Current Pain Intensity: mild to mod soreness shoulder joint and scapular region - Heat/Cryotherapy Treatment: Cryotherapy ([id number] to the left shoulder prior to and [id number] following EX. Patient in sitting. ) Interventions - Exercise/Activities/Manual Therapy Exercises/Activities: [id number] PROM all directions left shoulder, elbow, and wrist. Isometric shoulder add, ext, abd, IR and ER. Isometric triceps and bicep , wrist flexion and extension. Wand for overhead shoulder flexion and ER in supine. Isometrics with arm at side and at 90 degrees shoulder flexion. In sitting, assisted left shoulder flexion, scaption, and short abduction. Wand for flexion to 90 degrees and short range ER. Controlled extension with assist from overhead to promote eccentric contraction of left shoulder. Shoulder shrugs and scap retraction. Total minutes of Exercise: 20mins Manual Therapy: [id number] to the left traps, along the mid scapular border, and posterior shoulder joint for trigger point release. Patient in sitting. Total minutes of Manual Therapy: 10mins HOME EXERCISE PROGRAM: pendulum, gentle scapula retraction, squeeze ball, cervical lateral flexion stretching. Wand for shoulder flexion and ER in supine and to shoulder height in sitting. - Objective Findings Observations,measurements,etc.: Increased pain at upper traps with eccentric exercise. Weakness noted but no discomfort at shoulder joint. - Charges Total Direct Minutes: 30mins Total Treatment Time: 55mins Procedures billed for this date of service:: CP, EX, MT Assessment: Patient progressing well with AAROM exercise. Patient Education: Home Exercise Program, Home Safety, Activity Modification Patient demonstrates compliance with HEP?: Yes Short Term Goals Goal #1: Pt independent and compliant with basic HEP. Goal to be met by: 11/03/16 (70%) Progress towards Goal:: Progressing Goal #2: PROM of the left shoulder WFL's. Goal to be met by: 11/03/16 (100%) Progress towards Goal:: Met Goal #3: Patient able to tolerate PROM with minimal reports of pain. Goal to be met by: 11/03/16 (100%) Progress towards Goal:: Met Goal #4: Pt to demonstrate good postural awareness. Goal to be met by: 11/03/16 (55%) Progress towards Goal:: Progressing Custodial Goals Goal #1: Pt knows HEP and to continue exercises after D/C from therapy. Goal to be met by: 01/18/17 Progress towards goal: Progressing Goal #2: Score on UE functional scale improved to < 20% impairment. Goal to be met by: 01/18/17 Goal #3: Pt to use left UE for all selfcare, ADL's, and functional reaching w/o pain Goal to be met by: 01/18/17 Goal #4: Pt able to return to work with minimal limitations. Goal to be met by: 01/18/17 Plan PLAN OF CARE EXPIRES ON:: 01/18/17 ORDER # VISITS AND/OR THROUGH DATE: 01/18/17 PLAN: Continue Plan of Care
--- NOTE | 2016-11-23 09:24 | RS.OPPTDN ---
Subjective Date of Note: 11/23/16 Visit #: 13 Date of Evaluation: 10/20/16 Payer Source: Workman's Comp Treatment Diagnosis: Left shoulder pain, left shoulder stiffness, s/p RTC repair Current Subjective/complaints:: Patient reports some increased soreness in the left shoulder joint and shoulder blade area. States he feels he can progress to scap retraction with mod theraband. Pain Assessment - Pain Description Pain Location: L shoulder Current Pain Intensity: mild to mod soreness shoulder joint and scapular region - Heat/Cryotherapy Treatment: Cryotherapy ([id number] to the left shoulder joint prior to EX. Patient in supine. ) Interventions - Exercise/Activities/Manual Therapy Exercises/Activities: [id number] PROM all directions left shoulder, elbow, and wrist. Isometric shoulder add, ext, abd, IR and ER. Isometric triceps and bicep , wrist flexion and extension. Increased to 3# wand for chest press and overhead shoulder flexion. Isometrics with arm at side and at 90 degrees shoulder flexion. Yellow theraband for short range shoulder ext, forward press, retraction, IR, ER, and biceps curl. In sitting, assisted left shoulder flexion , scaption, and short abduction. Wand for flexion to 90 degrees and short range ER. Controlled extension with assist from overhead to promote eccentric contraction of left shoulder. Isometric for shoulder x4 direction, 4s/5reps. Green theraband for bilateral shoulder ext into scap retraction, 2s/10reps. Shoulder shrugs and scap retraction. Total minutes of Exercise: 40mins Manual Therapy: x5mins to the left traps, along the mid scapular border, and posterior shoulder joint for trigger point release. Patient in sitting. Total minutes of Manual Therapy: 5mins HOME EXERCISE PROGRAM: pendulum, gentle scapula retraction, squeeze ball, cervical lateral flexion stretching. Wand for shoulder flexion and ER in supine and to shoulder height in sitting. - Charges Total Direct Minutes: 45mins Total Treatment Time: 60mins Procedures billed for this date of service:: CP, EX3 Assessment: Patient progressing with AAROM and with light resistive exercises. Patient Education: Education of diagnosis, Body/Joint mechanics, Home Exercise Program Patient demonstrates compliance with HEP?: Yes Short Term Goals Goal #1: Pt independent and compliant with basic HEP. Goal to be met by: 11/03/16 (75%) Progress towards Goal:: Progressing Goal #2: PROM of the left shoulder WFL's. Goal to be met by: 11/03/16 (100%) Progress towards Goal:: Met Goal #3: Patient able to tolerate PROM with minimal reports of pain. Goal to be met by: 11/03/16 (100%) Progress towards Goal:: Met Goal #4: Pt to demonstrate good postural awareness. 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 Goal to be met by: 01/18/17 Progress towards goal: Progressing Goal #2: Score on UE functional scale improved to < 20% impairment. Goal to be met by: 01/18/17 Goal #3: Pt to use left UE for all selfcare, ADL's, and functional reaching w/o pain Goal to be met by: 01/18/17 Goal #4: Pt able to return to work with minimal limitations. Goal to be met by: 01/18/17 Plan PLAN OF CARE EXPIRES ON:: 01/18/17 ORDER # VISITS AND/OR THROUGH DATE: 01/18/17 PLAN: Progress Exercises (Progess exercise per orders.)
--- NOTE | 2016-11-27 09:25 | RS.OPPTDN ---
Subjective Date of Note: 11/27/16 Visit #: 14 Date of Evaluation: 10/20/16 Payer Source: Workman's Comp Treatment Diagnosis: Left shoulder pain, left shoulder stiffness, s/p RTC repair Current Subjective/complaints:: Patient reports slow but steady progress with active assisted exercise. Reports trying to increase light daily activities at home while maintaining shoulder precautions. Pain Assessment - Pain Description Pain Location: L shoulder Current Pain Intensity: mild to mod soreness shoulder joint and scapular region - Heat/Cryotherapy Treatment: Cryotherapy ([id number] to the left shoulder prior to EX. Patient in sitting. ) Interventions - Exercise/Activities/Manual Therapy Exercises/Activities: [id number] PROM all directions left shoulder, elbow, and wrist. Isometric shoulder add, ext, abd, IR and ER. Isometric triceps and bicep , wrist flexion and extension. Increased to 3# wand for chest press and overhead shoulder flexion. Patent holds medium ball overhead with shoulders at 90 degrees and performs isometric shoulder adduction and scapular protraction. Isometrics with arm at side and at 90 degrees shoulder flexion. In sitting, assisted left shoulder flexion, scaption, and short abduction. Wand for flexion to 90 degrees. Controlled extension with assist from overhead to promote eccentric contraction of left shoulder. Isometric for shoulder x4 direction, 4s/ 5reps. Shoulder shrugs and scap retraction. Total minutes of Exercise: 37mins Manual Therapy: x7mins to the left traps, along the mid scapular border, and posterior shoulder joint for trigger point release. Patient in sitting. Total minutes of Manual Therapy: 7mins HOME EXERCISE PROGRAM: pendulum, gentle scapula retraction, squeeze ball, cervical lateral flexion stretching. Wand for shoulder flexion and ER in supine and to shoulder height in sitting. - Objective Findings Observations,measurements,etc.: Active assisted left shoulder flexion to 165 degrees and active flexion to 70 degrees in sitting at end of exercise session. - Charges Total Direct Minutes: 44mins Total Treatment Time: 59mins Procedures billed for this date of service:: CP, EX2, MT Assessment: Patient progressing well with AAROM and starting low level AROM. Patient Education: Home Exercise Program, Home Safety, Activity Modification Patient demonstrates compliance with HEP?: Yes Short Term Goals Goal #1: Pt independent and compliant with basic HEP. Goal to be met by: 11/03/16 (80%) Progress towards Goal:: Progressing Goal #2: PROM of the left shoulder WFL's. Goal to be met by: 11/03/16 (100%) Progress towards Goal:: Met Goal #3: Patient able to tolerate PROM with minimal reports of pain. Goal to be met by: 11/03/16 (100%) Progress towards Goal:: Met Goal #4: Pt to demonstrate good postural awareness. 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 Goal to be met by: 01/18/17 Progress towards goal: Progressing Goal #2: Score on UE functional scale improved to < 20% impairment. Goal to be met by: 01/18/17 Goal #3: Pt to use left UE for all selfcare, ADL's, and functional reaching w/o pain Goal to be met by: 01/18/17 Progress towards goal: Progressing Goal #4: Pt able to return to work with minimal limitations. Goal to be met by: 01/18/17 Plan PLAN OF CARE EXPIRES ON:: 01/18/17 ORDER # VISITS AND/OR THROUGH DATE: 01/18/17 PLAN: Progress Exercises
--- NOTE | 2016-11-30 13:39 | RS.OPPTDN ---
Subjective Date of Note: 11/30/16 Visit #: 15 Date of Evaluation: 10/20/16 Payer Source: Workman's Comp Treatment Diagnosis: Left shoulder pain, left shoulder stiffness, s/p RTC repair Current Subjective/complaints:: Patient reports doing better with AAROM in sitting today. Pain Assessment - Pain Description Pain Location: L shoulder Current Pain Intensity: mild to mod soreness shoulder joint and scapular region - Heat/Cryotherapy Treatment: Cryotherapy ([id number] to the left shoulder prior to EX. Patient in sitting. ) Interventions - Exercise/Activities/Manual Therapy Exercises/Activities: [id number] PROM all directions left shoulder, elbow, and wrist. Isometric shoulder add, ext, abd, IR and ER. Isometric triceps and bicep , wrist flexion and extension. Increased to 3# wand for chest press and overhead shoulder flexion. Isometrics with arm at side and at 90 degrees shoulder flexion. In sitting, assisted left shoulder flexion, scaption, and short abduction. Wand for flexion to 90 degrees. Controlled extension with assist from overhead to promote eccentric contraction of left shoulder. Lifts small ball overhead while performing isometric shoulder adduction. Isometric for shoulder x4 directions. Total minutes of Exercise: 35mins Manual Therapy: [id number] to the left traps, along the mid scapular border, and posterior shoulder joint for trigger point release. Patient in sitting. Total minutes of Manual Therapy: 10mins HOME EXERCISE PROGRAM: pendulum, gentle scapula retraction, squeeze ball, cervical lateral flexion stretching. Wand for shoulder flexion and ER in supine and to shoulder height in sitting. - Charges Total Direct Minutes: 45mins Total Treatment Time: 60mins Procedures billed for this date of service:: CP, EX2, MT Assessment: Patient progressing with active assisted reaching. Patient Education: Body/Joint mechanics, Home Exercise Program, Home Safety Patient demonstrates compliance with HEP?: Yes Short Term Goals Goal #1: Pt independent and compliant with basic HEP. Goal to be met by: 11/03/16 (80%) Progress towards Goal:: Progressing Goal #2: PROM of the left shoulder WFL's. Goal to be met by: 11/03/16 (100%) Progress towards Goal:: Met Goal #3: Patient able to tolerate PROM with minimal reports of pain. Goal to be met by: 11/03/16 (100%) Progress towards Goal:: Met Goal #4: Pt to demonstrate good postural awareness. 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 Goal to be met by: 01/18/17 Progress towards goal: Progressing Goal #2: Score on UE functional scale improved to < 20% impairment. Goal to be met by: 01/18/17 Goal #3: Pt to use left UE for all selfcare, ADL's, and functional reaching w/o pain Goal to be met by: 01/18/17 Progress towards goal: Progressing Goal #4: Pt able to return to work with minimal limitations. Goal to be met by: 01/18/17 Plan PLAN OF CARE EXPIRES ON:: 01/18/17 ORDER # VISITS AND/OR THROUGH DATE: 01/18/17 PLAN: Continue Plan of Care
--- NOTE | 2016-12-04 09:05 | RS.OPPTDN ---
Subjective Date of Note: 12/04/16 Visit #: 16 Date of Evaluation: 10/20/16 Payer Source: Workman's Comp Treatment Diagnosis: Left shoulder pain, left shoulder stiffness, s/p RTC repair Current Subjective/complaints:: Patient reports continued soreness left shoulder joint. States he is working on HEP and performing light daily activities while maintaining safety precautions. Pain Assessment - Pain Description Pain Location: L shoulder Current Pain Intensity: mild to mod soreness shoulder joint and scapular region - Heat/Cryotherapy Treatment: Cryotherapy ([id number] to the left shoulder prior to EX. Patient in supine. ) Interventions - Exercise/Activities/Manual Therapy Exercises/Activities: [id number] PROM all directions left shoulder, elbow, and wrist. Isometric shoulder add, ext, abd, IR and ER. Isometric triceps and bicep , wrist flexion and extension. 1# wand for chest press and overhead shoulder flexion. Isometrics with arm at side and at 90 degrees shoulder flexion. In sitting, assisted left shoulder flexion, scaption, and short abduction. Wand for flexion to 90 degrees. Isometric shoulder adduction with ball. Controlled extension with assist from overhead to promote eccentric contraction of left shoulder. Lifts small ball overhead while performing isometric shoulder adduction. Isometric for shoulder x4 directions. Red theraband for left shoulder/scapular retraction and biceps curl. Total minutes of Exercise: 40mins Manual Therapy: na HOME EXERCISE PROGRAM: pendulum, gentle scapula retraction, squeeze ball, cervical lateral flexion stretching. Wand for shoulder flexion and ER in supine and to shoulder height in sitting. - Objective Findings Observations,measurements,etc.: PROM left shoulder WFL. Patient with weakness at mid-range with shoulder flexion during AAROM. - Charges Total Direct Minutes: 40mins Total Treatment Time: 55mins Procedures billed for this date of service:: CP, EX3 Assessment: Patient progressing well with protocol. Will see physician for follow-up tomorrow and will progress strengthening with new orders. Patient Education: Body/Joint mechanics, Home Exercise Program, Home Safety, Activity Modification Patient demonstrates compliance with HEP?: Yes Short Term Goals Goal #1: Pt independent and compliant with basic HEP. Goal to be met by: 11/03/16 (100%) Progress towards Goal:: Met Goal #2: PROM of the left shoulder WFL's. Goal to be met by: 11/03/16 (100%) Progress towards Goal:: Met Goal #3: Patient able to tolerate PROM with minimal reports of pain. Goal to be met by: 11/03/16 (100%) Progress towards Goal:: Met Goal #4: Pt to demonstrate good postural awareness. 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 Goal to be met by: 01/18/17 Progress towards goal: Progressing Goal #2: Score on UE functional scale improved to < 20% impairment. Goal to be met by: 01/18/17 Goal #3: Pt to use left UE for all selfcare, ADL's, and functional reaching w/o pain Goal to be met by: 01/18/17 Progress towards goal: Progressing Goal #4: Pt able to return to work with minimal limitations. Goal to be met by: 01/18/17 Plan PLAN OF CARE EXPIRES ON:: 01/18/17 ORDER # VISITS AND/OR THROUGH DATE: 01/18/17 PLAN: Hold (Hold for follow-up with physician. May progress to strengthening with new orders.)
--- NOTE | 2016-12-07 11:24 | RS.OPPTDN ---
Subjective Date of Note: 12/07/16 Visit #: 17 Date of Evaluation: 10/20/16 Payer Source: Workman's Comp Treatment Diagnosis: Left shoulder pain, left shoulder stiffness, s/p RTC repair Current Subjective/complaints:: Patient presents to department with orders to continue therapy for post op RTC repair to progress AAROM and isometrics. Patient reports continued muscle tension at the upper traps and into neck. States pain and tenderness at the posterior shoulder joint is better. Pain Assessment - Pain Description Pain Location: L shoulder Current Pain Intensity: mild to mod soreness shoulder joint and scapular region - Heat/Cryotherapy Treatment: Cryotherapy ([id number] to the left shoulder joint following EX and MT. Patient in sitting. ) Interventions - Exercise/Activities/Manual Therapy Exercises/Activities: [id number] PROM all directions left shoulder, elbow, and wrist. Isometric shoulder add, ext, abd, IR and ER. Isometric triceps and bicep , wrist flexion and extension. 1# wand for chest press, overhead shoulder flexion, and horizontal abduction. Isometrics with arm at side and at 90 degrees shoulder flexion. In sitting, assisted left shoulder flexion, scaption, and short abduction. Wand for flexion to 90 degrees. Isometric shoulder adduction with ball. Controlled extension with assist from overhead to promote eccentric contraction of left shoulder. Isometric for shoulder x4 directions. Resistive forward shoulder press. Ended with additional AA shoulder flexion, scaption, and abduction. Total minutes of Exercise: 35mins Manual Therapy: 8mins. Trigger point release to the left upper traps, mid scap musculature, and to the posterior shoulder joint at infraspinatus. Patient in sitting. Total minutes of Manual Therapy: 8mins HOME EXERCISE PROGRAM: pendulum, gentle scapula retraction, squeeze ball, cervical lateral flexion stretching. Wand for shoulder flexion and ER in supine and to shoulder height in sitting. - Charges Total Direct Minutes: 43mins Total Treatment Time: 58mins Procedures billed for this date of service:: EX2, MT, CP Assessment: Patient to progress with AAROM and isometrics. Patient Education: Body/Joint mechanics, Home Exercise Program, Activity Modification Comments: Reviewed safety with daily activities. Patient demonstrates compliance with HEP?: Yes Short Term Goals Goal #1: Pt independent and compliant with basic HEP. Goal to be met by: 11/03/16 (100%) Progress towards Goal:: Met Goal #2: PROM of the left shoulder WFL's. Goal to be met by: 11/03/16 (100%) Progress towards Goal:: Met Goal #3: Patient able to tolerate PROM with minimal reports of pain. Goal to be met by: 11/03/16 (100%) Progress towards Goal:: Met Goal #4: Pt to demonstrate good postural awareness. 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 Goal to be met by: 01/18/17 Progress towards goal: Progressing Goal #2: Score on UE functional scale improved to < 20% impairment. Goal to be met by: 01/18/17 Goal #3: Pt to use left UE for all selfcare, ADL's, and functional reaching w/o pain Goal to be met by: 01/18/17 Progress towards goal: Progressing Goal #4: Pt able to return to work with minimal limitations. Goal to be met by: 01/18/17 Plan PLAN OF CARE EXPIRES ON:: 01/18/17 ORDER # VISITS AND/OR THROUGH DATE: 01/18/17 PLAN: Continue Plan of Care
== END 2016-12-08 ==
PROVIDERS: ATTEND Orthopaedic Surgery Sports Medicine
DX: M25.512 Pain in left shoulder (principal); Z98.890 Other specified postprocedural states

== ENCOUNTER → 2017-01-08 | Outpatient (RCR) ==
--- NOTE | 2016-12-11 09:58 | RS.OPPTDN ---
Subjective Date of Note: 12/11/16 Visit #: 18 Date of Evaluation: 10/20/16 Payer Source: Workman's Comp Treatment Diagnosis: Left shoulder pain, left shoulder stiffness, s/p RTC repair Current Subjective/complaints:: Patient reports soreness and tenderness with mild to mod pressure at the posterior shoulder joint with manual therapy. Reports improvement with mobility with treatment, and improvement with active flexion in sitting. Pain Assessment - Pain Description Pain Location: L shoulder Current Pain Intensity: mild to mod soreness shoulder joint and scapular region - Heat/Cryotherapy Treatment: Cryotherapy (Ended with 15mins to the left shoulder following exercise. Patient in sitting. ) Interventions - Exercise/Activities/Manual Therapy Exercises/Activities: [id number] PROM all directions left shoulder, elbow, and wrist. Isometric shoulder add, ext, abd, IR and ER. Isometric triceps and bicep , wrist flexion and extension. Increased to 3# wand for chest press, overhead shoulder flexion. Isometrics with arm at side and at 90 degrees shoulder flexion. In sitting, assisted left shoulder flexion, scaption, and short abduction. Patient able to perform active left shoulder flexion to 150 degrees independently. Isometric shoulder adduction with ball. Controlled extension with assist from overhead to promote eccentric contraction of left shoulder. Isometric for shoulder x4 directions. Began shoulder pulleys. Green theraband for scapular retraction, 2s/10reps. Total minutes of Exercise: 30mins Manual Therapy: 10mins. Trigger point release to the left upper traps, mid scap musculature, and to the posterior shoulder joint at infraspinatus. Patient in supine and in sitting. Total minutes of Manual Therapy: 10mins HOME EXERCISE PROGRAM: pendulum, gentle scapula retraction, squeeze ball, cervical lateral flexion stretching. Wand for shoulder flexion and ER in supine and to shoulder height in sitting. - Charges Total Direct Minutes: 40mins Total Treatment Time: 55mins Procedures billed for this date of service:: EX2, MT, CP Assessment: Patient progressing well and demos active left shoulder flexion to above shoulder height and against gravity. Patient Education: Home Exercise Program, Home Safety Patient demonstrates compliance with HEP?: Yes Short Term Goals Goal #1: Pt independent and compliant with basic HEP. Goal to be met by: 11/03/16 (100%) Progress towards Goal:: Met Goal #2: PROM of the left shoulder WFL's. Goal to be met by: 11/03/16 (100%) Progress towards Goal:: Met Goal #3: Patient able to tolerate PROM with minimal reports of pain. Goal to be met by: 11/03/16 (100%) Progress towards Goal:: Met Goal #4: Pt to demonstrate good postural awareness. 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 Goal to be met by: 01/18/17 Progress towards goal: Progressing Goal #2: Score on UE functional scale improved to < 20% impairment. Goal to be met by: 01/18/17 Goal #3: Pt to use left UE for all selfcare, ADL's, and functional reaching w/o pain Goal to be met by: 01/18/17 Progress towards goal: Progressing Goal #4: Pt able to return to work with minimal limitations. Goal to be met by: 01/18/17 Plan PLAN OF CARE EXPIRES ON:: 01/18/17 ORDER # VISITS AND/OR THROUGH DATE: 01/18/17 PLAN: Continue Plan of Care
--- NOTE | 2016-12-14 09:57 | RS.OPPTDN ---
Subjective Date of Note: 12/14/16 Visit #: 19 Date of Evaluation: 10/20/16 Payer Source: Workman's Comp Treatment Diagnosis: Left shoulder pain, left shoulder stiffness, s/p RTC repair Current Subjective/complaints:: Patient reports continued muscle soreness and spasms in the posterior shoulder joint and mid scap region. States he i sprogressing with active flexion against gravity. Pain Assessment - Pain Description Pain Location: L shoulder Current Pain Intensity: mild to mod soreness shoulder joint and scapular region - Heat/Cryotherapy Treatment: Cryotherapy ([id number] to the left shoulder joint and scap region following EX. Patient in sitting. ) Interventions - Exercise/Activities/Manual Therapy Exercises/Activities: [id number] PROM all directions left shoulder, elbow, and wrist. Isometric shoulder add, ext, abd, IR and ER. Isometric triceps and bicep , wrist flexion and extension. 3# wand for chest press, overhead shoulder flexion, 20reps each. Isometrics with arm at side and at 90 degrees shoulder flexion. Red theraband for left shoulder extension, biceps and triceps. In sitting, assisted left shoulder flexion, scaption, and short abduction. Began yellow theraband for short range bilateral shoulder ER, 2s/10reps. Green theraband for scapular retraction 2s/20reps. Patient able to perform active left shoulder flexion to 150-155 degrees independently. Controlled extension with assist from overhead to promote eccentric contraction of left shoulder. Isometric for shoulder x4 directions. Total minutes of Exercise: 28mins Manual Therapy: 10mins. Trigger point release to the left upper traps, mid scap musculature, and to the posterior shoulder joint at infraspinatus. Patient in supine and in sitting. Total minutes of Manual Therapy: 10mins HOME EXERCISE PROGRAM: pendulum, gentle scapula retraction, squeeze ball, cervical lateral flexion stretching. Wand for shoulder flexion and ER in supine and to shoulder height in sitting. Green theraband for scapular retraction. Yellow theraband fro short range bilateral shoulder ER. - Charges Total Direct Minutes: 38mins Total Treatment Time: 53mins Procedures billed for this date of service:: EX2, MT, CP Assessment: Patient progressing well with AROM and AAROM. He is able to tolerate light resistive exercises in limited ranges. Patient will see physician on [place] [address], and should receive orders to progress strengthening at that time. Patient Education: Body/Joint mechanics, Home Exercise Program, Home Safety, Activity Modification Patient demonstrates compliance with HEP?: Yes Short Term Goals Goal #1: Pt independent and compliant with basic HEP. Goal to be met by: 11/03/16 (100%) Progress towards Goal:: Met Goal #2: PROM of the left shoulder WFL's. Goal to be met by: 11/03/16 (100%) Progress towards Goal:: Met Goal #3: Patient able to tolerate PROM with minimal reports of pain. Goal to be met by: 11/03/16 (100%) Progress towards Goal:: Met Goal #4: Pt to demonstrate good postural awareness. 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 Goal to be met by: 01/18/17 Progress towards goal: Progressing Goal #2: Score on UE functional scale improved to < 20% impairment. Goal to be met by: 01/18/17 Goal #3: Pt to use left UE for all selfcare, ADL's, and functional reaching w/o pain Goal to be met by: 01/18/17 Progress towards goal: Progressing Goal #4: Pt able to return to work with minimal limitations. Goal to be met by: 01/18/17 Plan PLAN OF CARE EXPIRES ON:: 01/18/17 ORDER # VISITS AND/OR THROUGH DATE: 01/18/17 PLAN: Continue Plan of Care (Continue AAROM and AROM, as well as light resistive exercise, progressing toward treatment goals.)
--- NOTE | 2016-12-18 09:44 | RS.OPPTDN ---
Subjective Date of Note: 12/18/16 Visit #: 20 Date of Evaluation: 10/20/16 Payer Source: Workman's Comp Treatment Diagnosis: Left shoulder pain, left shoulder stiffness, s/p RTC repair Current Subjective/complaints:: Patient says he feels motion is much better and pleased with it, but he feels strength is slow. Says he has intermittent popping to the L shoulder with elevation and sore to the L scapula. Pain Assessment - Pain Description Pain Location: L shoulder/scapula Current Pain Intensity: mild to mod soreness shoulder joint and scapular region - Heat/Cryotherapy Treatment: Cryotherapy (15 mins to the L shoulder in sitting after therex) Interventions - Exercise/Activities/Manual Therapy Exercises/Activities: [id number] PROM all directions left shoulder, elbow, and wrist. Isometric shoulder add, ext, abd, IR and ER. Isometric triceps and bicep , wrist flexion and extension. 3# wand for chest press, overhead shoulder flexion, 20reps each. Isometrics with arm at side and at 90 degrees shoulder flexion. Red theraband for left shoulder extension, biceps and triceps. In sitting, assisted left shoulder flexion, scaption, and short abduction. Began yellow theraband for short range bilateral shoulder ER, 2s/10reps. Green theraband for scapular retraction 2s/20reps. Patient able to perform active left shoulder flexion to 150-155 degrees independently. Controlled extension with assist from overhead to promote eccentric contraction of left shoulder. Isometric for shoulder x4 directions. Manual Therapy: na HOME EXERCISE PROGRAM: pendulum, gentle scapula retraction, squeeze ball, cervical lateral flexion stretching. Wand for shoulder flexion and ER in supine and to shoulder height in sitting. Green theraband for scapular retraction. Yellow theraband fro short range bilateral shoulder ER. - Charges Total Direct Minutes: 28 Total Treatment Time: 43 Procedures billed for this date of service:: cp, ex2 Assessment: Patient demo full PROM for flex/abd. ER/IR WNL as well (PROM). Intermittent popping with last 20 degrees of shoulder flexion passively. L scapular soreness and general muscle fatigue with Active shoulder flexion. Patient Education: Education of diagnosis, Body/Joint mechanics, Home Exercise Program, Home Safety, Activity Modification, Education of Plan of Care Patient demonstrates compliance with HEP?: Yes Short Term Goals Goal #1: Pt independent and compliant with basic HEP. Goal to be met by: 11/03/16 (100%) Progress towards Goal:: Met Goal #2: PROM of the left shoulder WFL's. Goal to be met by: 11/03/16 (100%) Progress towards Goal:: Met Goal #3: Patient able to tolerate PROM with minimal reports of pain. Goal to be met by: 11/03/16 (100%) Progress towards Goal:: Met Goal #4: Pt to demonstrate good postural awareness. Goal to be met by: 11/03/16 (80%) Progress towards Goal:: Progressing [facility] Goals Goal #1: Pt knows HEP and to continue exercises after D/C from therapy. Goal to be met by: 01/18/17 Progress towards goal: Progressing Goal #2: Score on UE functional scale improved to < 20% impairment. Goal to be met by: 01/18/17 Goal #3: Pt to use left UE for all selfcare, ADL's, and functional reaching w/o pain Goal to be met by: 01/18/17 Progress towards goal: Progressing Goal #4: Pt able to return to work with minimal limitations. Goal to be met by: 01/18/17 Plan PLAN OF CARE EXPIRES ON:: 01/18/17 ORDER # VISITS AND/OR THROUGH DATE: 01/18/17 PLAN: Progress Exercises
--- NOTE | 2016-12-21 09:14 | RS.OPPTDN ---
Subjective Date of Note: 12/21/16 Visit #: 21 Date of Evaluation: 10/20/16 Payer Source: Workman's Comp Treatment Diagnosis: Left shoulder pain, left shoulder stiffness, s/p RTC repair Current Subjective/complaints:: Patient c/o "charley horse" to the R scapula. He says he continues to work on ROM at home for the L shoulder. He says he is out of pain medication at this point and is going to contact his MD to obtain another prescription. Pain Assessment - Pain Description Pain Location: L shoulder/scapula Current Pain Intensity: mild to mod soreness shoulder joint and scapular region - Heat/Cryotherapy Treatment: Cryotherapy (15 mins) Comments:: 15 mins to the L shoulder in sitting after therex Interventions - Exercise/Activities/Manual Therapy Exercises/Activities: [id number] PROM all directions left shoulder, elbow, and wrist. Isometric shoulder add, ext, abd, IR and ER. Isometric triceps and bicep , wrist flexion and extension. 3# wand for chest press, overhead shoulder flexion, 20reps each. Isometrics with arm at side and at 90 degrees shoulder flexion. Red theraband for left shoulder extension, biceps and triceps, bilateral ER/IR. In sitting, assisted left shoulder flexion, scaption, and short abduction. Continued with red theraband for short range bilateral shoulder ER, 2s/10reps. Green theraband for scapular retraction 2s/20reps. Patient able to perform active left shoulder flexion ~170 today degrees actively. Assisted sitting shoulder abd multiple reps. Red tband IR 2x10. Wall slides with stretch bilaterally and for the L including flexion/abd, pulldowns with green tband in standing 2x10, wall push ups x 10. Manual Therapy: na HOME EXERCISE PROGRAM: pendulum, gentle scapula retraction, squeeze ball, cervical lateral flexion stretching. Wand for shoulder flexion and ER in supine and to shoulder height in sitting. Green theraband for scapular retraction. Yellow theraband fro short range bilateral shoulder ER. - Charges Total Direct Minutes: 32 Total Treatment Time: 47 Procedures billed for this date of service:: cp, ex2 Assessment: Patient demo increased ROM actively in supine and in sitting today. He is progressing with therex well without c/o other than general muscle fatigue. Patient Education: Education of diagnosis, Body/Joint mechanics, Home Exercise Program, Home Safety, Activity Modification, Education of Plan of Care Patient demonstrates compliance with HEP?: Yes Short Term Goals Goal #1: Pt independent and compliant with basic HEP. Goal to be met by: 11/03/16 (100%) Progress towards Goal:: Met Goal #2: PROM of the left shoulder WFL's. Goal to be met by: 11/03/16 (100%) Progress towards Goal:: Met Goal #3: Patient able to tolerate PROM with minimal reports of pain. Goal to be met by: 11/03/16 (100%) Progress towards Goal:: Met Goal #4: Pt to demonstrate good postural awareness. Goal to be met by: 11/03/16 (80%) Progress towards Goal:: Progressing [facility] Goals Goal #1: Pt knows HEP and to continue exercises after D/C from therapy. Goal to be met by: 01/18/17 Progress towards goal: Progressing Goal #2: Score on UE functional scale improved to < 20% impairment. Goal to be met by: 01/18/17 Goal #3: Pt to use left UE for all selfcare, ADL's, and functional reaching w/o pain Goal to be met by: 01/18/17 Progress towards goal: Progressing Goal #4: Pt able to return to work with minimal limitations. Goal to be met by: 01/18/17 Plan PLAN OF CARE EXPIRES ON:: 01/18/17 ORDER # VISITS AND/OR THROUGH DATE: 01/18/17 PLAN: Progress Exercises
--- NOTE | 2016-12-25 11:11 | RS.OPPTDN ---
Subjective Date of Note: 12/25/16 Visit #: 22 Date of Evaluation: 10/20/16 Payer Source: Workman's Comp Treatment Diagnosis: Left shoulder pain, left shoulder stiffness, s/p RTC repair Current Subjective/complaints:: Patient reports improvement with active reaching at low levels. He continued to have muscle spasms in the upper traps and scapular region. Pain Assessment - Pain Description Pain Location: L shoulder/scapula Current Pain Intensity: mild to mod soreness shoulder joint and scapular region - Heat/Cryotherapy Treatment: Cryotherapy (to the left shoulder [id number] prior to and [id number] following EX. Patient in sitting. ) Interventions - Exercise/Activities/Manual Therapy Exercises/Activities: [id number] PROM all directions left shoulder, elbow, and wrist. Isometric shoulder add, ext, abd, IR and ER. Isometric triceps and bicep , wrist flexion and extension. In sitting, 1# wand for chest press and shoulder flexion. Began active static hold of left arm at 90 degrees with and without light resistance. Red theraband for left shoulder extension, biceps and triceps , bilateral ER/IR. Continued with assisted left shoulder flexion, scaption, and short abduction. Isometric shoulder add with IR while squeezing ball. Active bilateral flexion to shoulder height while holding ball between hand. Wall slides with stretch on left. Ball on the wall. Total minutes of Exercise: 34mins Manual Therapy: 8mins trigger point release to the left traps and mid scap musculature. Patient in sitting. Total minutes of Manual Therapy: 8mins HOME EXERCISE PROGRAM: pendulum, gentle scapula retraction, squeeze ball, cervical lateral flexion stretching. Wand for shoulder flexion and ER in supine and to shoulder height in sitting. Green theraband for scapular retraction. Yellow theraband for short range bilateral shoulder ER. - Charges Total Direct Minutes: 42mins Total Treatment Time: 62mins Procedures billed for this date of service:: CP, EX2, MT Assessment: Patient progressing with AAROM. Patient Education: Home Exercise Program Patient demonstrates compliance with HEP?: Yes Short Term Goals Goal #1: Pt independent and compliant with basic HEP. Goal to be met by: 11/03/16 (100%) Progress towards Goal:: Met Goal #2: PROM of the left shoulder WFL's. Goal to be met by: 11/03/16 (100%) Progress towards Goal:: Met Goal #3: Patient able to tolerate PROM with minimal reports of pain. Goal to be met by: 11/03/16 (100%) Progress towards Goal:: Met Goal #4: Pt to demonstrate good postural awareness. 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 Goal to be met by: 01/18/17 Progress towards goal: Progressing Goal #2: Score on UE functional scale improved to < 20% impairment. Goal to be met by: 01/18/17 Goal #3: Pt to use left UE for all selfcare, ADL's, and functional reaching w/o pain Goal to be met by: 01/18/17 Progress towards goal: Progressing Goal #4: Pt able to return to work with minimal limitations. Goal to be met by: 01/18/17 Plan PLAN OF CARE EXPIRES ON:: 01/18/17 ORDER # VISITS AND/OR THROUGH DATE: 01/18/17 PLAN: Continue Plan of Care
--- NOTE | 2016-12-28 14:08 | RS.OPPTDN ---
Subjective Date of Note: 12/28/16 Visit #: 23 Date of Evaluation: 10/20/16 Payer Source: Workman's Comp Treatment Diagnosis: Left shoulder pain, left shoulder stiffness, s/p RTC repair Current Subjective/complaints:: No new c/o today. Reports slow but steady progress with Active and AAROM. Reports continued muscle tension in the upper traps and posterior shoulder joint. Pain Assessment - Pain Description Pain Location: L shoulder/scapula Current Pain Intensity: mild to mod soreness shoulder joint and scapular region - Heat/Cryotherapy Treatment: Cryotherapy (To the left shoulder [id number] prior to and 10mins following EX. Patient in sitting. ) Interventions - Exercise/Activities/Manual Therapy Exercises/Activities: [id number] PROM all directions left shoulder, elbow, and wrist. Isometric shoulder add, ext, abd, IR and ER. Isometric triceps and bicep , wrist flexion and extension. 1# wand for chest press and shoulder flexion. Active static hold of left arm at 90 degrees with and without light resistance. Red theraband for bilateral scapular retraction and left shoulder extension, biceps and triceps, bilateral ER/IR. Continued with assisted left shoulder flexion, scaption, and short abduction. Active bilateral flexion to shoulder height while holding ball between hand. Ball toss/chest pass with UE's at low level. Total minutes of Exercise: 30mins Manual Therapy: 8mins trigger point release to the left traps and mid scap musculature. Patient in sitting. Total minutes of Manual Therapy: 8mins HOME EXERCISE PROGRAM: pendulum, gentle scapula retraction, squeeze ball, cervical lateral flexion stretching. Wand for shoulder flexion and ER in supine and to shoulder height in sitting. Green theraband for scapular retraction. Yellow theraband for short range bilateral shoulder ER. - Charges Total Direct Minutes: 38mins Total Treatment Time: 60mins Procedures billed for this date of service:: CP, EX2, MT Assessment: Patient continues to make steady progress with AAROM exercises. Patient Education: Home Exercise Program Patient demonstrates compliance with HEP?: Yes Short Term Goals Goal #1: Pt independent and compliant with basic HEP. Goal to be met by: 11/03/16 (100%) Progress towards Goal:: Met Goal #2: PROM of the left shoulder WFL's. Goal to be met by: 11/03/16 (100%) Progress towards Goal:: Met Goal #3: Patient able to tolerate PROM with minimal reports of pain. Goal to be met by: 11/03/16 (100%) Progress towards Goal:: Met Goal #4: Pt to demonstrate good postural awareness. Goal to be met by: 11/03/16 (80%) Progress towards Goal:: Progressing [facility] Goals Goal #1: Pt knows HEP and to continue exercises after D/C from therapy. Goal to be met by: 01/18/17 Progress towards goal: Progressing Goal #2: Score on UE functional scale improved to < 20% impairment. Goal to be met by: 01/18/17 Goal #3: Pt to use left UE for all selfcare, ADL's, and functional reaching w/o pain Goal to be met by: 01/18/17 Progress towards goal: Progressing Goal #4: Pt able to return to work with minimal limitations. Goal to be met by: 01/18/17 Plan PLAN OF CARE EXPIRES ON:: 01/18/17 ORDER # VISITS AND/OR THROUGH DATE: 01/18/17 PLAN: Continue Plan of Care
--- NOTE | 2017-01-01 12:05 | RS.OPPTDN ---
Subjective Date of Note: 01/01/17 Visit #: 24 Date of Evaluation: 10/20/16 Payer Source: Workman's Comp Treatment Diagnosis: Left shoulder pain, left shoulder stiffness, s/p RTC repair Current Subjective/complaints:: Patient reports continued weakness with active flexion and abduction, but is reassured he is progressing normally with physicians orders. Pain Assessment - Pain Description Pain Location: L shoulder/scapula Current Pain Intensity: mild to mod soreness shoulder joint and scapular region - Heat/Cryotherapy Treatment: Cryotherapy ([id number] prior to and [id number] following exercise, to the left shoulder joint. Patient in sitting. ) Interventions - Exercise/Activities/Manual Therapy Exercises/Activities: [id number] PROM all directions left shoulder, elbow, and wrist. Isometric shoulder add, ext, abd, IR and ER. Isometric triceps and bicep , wrist flexion and extension. 1# wand for chest press and shoulder flexion. Active static hold of left arm at 90 degrees with and without light resistance. Began yellow theraband for left shoulder IR, ER, ext, and short range flexion. Red theraband for bilateral scapular retraction and left shoulder extension, biceps and triceps, bilateral ER/IR. Continued with assisted left shoulder flexion, scaption, and short abduction. Active bilateral flexion to shoulder height while holding ball between hand. Ball on wall. Total minutes of Exercise: 30mins Manual Therapy: 8mins trigger point release to the left traps and mid scap musculature. Patient in sitting. Total minutes of Manual Therapy: 8mins HOME EXERCISE PROGRAM: pendulum, gentle scapula retraction, squeeze ball, cervical lateral flexion stretching. Wand for shoulder flexion and ER in supine and to shoulder height in sitting. Green theraband for scapular retraction. Yellow theraband for short range bilateral shoulder ER. - Charges Total Direct Minutes: 38mins Total Treatment Time: 58mins Procedures billed for this date of service:: CP, EX2, MT Assessment: Patient continues to progress with AAROM and light resistance exercise at low levels. Patient Education: Home Exercise Program Patient demonstrates compliance with HEP?: Yes Short Term Goals Goal #1: Pt independent and compliant with basic HEP. Goal to be met by: 11/03/16 (100%) Progress towards Goal:: Met Goal #2: PROM of the left shoulder WFL's. Goal to be met by: 11/03/16 (100%) Progress towards Goal:: Met Goal #3: Patient able to tolerate PROM with minimal reports of pain. Goal to be met by: 11/03/16 (100%) Progress towards Goal:: Met Goal #4: Pt to demonstrate good postural awareness. Goal to be met by: 11/03/16 (80%) Progress towards Goal:: Progressing [facility] Goals Goal #1: Pt knows HEP and to continue exercises after D/C from therapy. Goal to be met by: 01/18/17 Progress towards goal: Progressing Goal #2: Score on UE functional scale improved to < 20% impairment. Goal to be met by: 01/18/17 Goal #3: Pt to use left UE for all selfcare, ADL's, and functional reaching w/o pain Goal to be met by: 01/18/17 Progress towards goal: Progressing Goal #4: Pt able to return to work with minimal limitations. Goal to be met by: 01/18/17 Plan PLAN OF CARE EXPIRES ON:: 01/18/17 ORDER # VISITS AND/OR THROUGH DATE: 01/18/17 PLAN: Progress Exercises
--- NOTE | 2017-01-04 11:21 | RS.OPPTDN ---
Subjective Date of Note: 01/04/17 Visit #: 25 Date of Evaluation: 10/20/16 Payer Source: Workman's Comp Treatment Diagnosis: Left shoulder pain, left shoulder stiffness, s/p RTC repair Current Subjective/complaints:: Patient reports slow but steady improvement in active reaching. Reports left shoulder discomfort limits sleep at times. Reports increased flexibility follwoing exercise and manual therapy. Pain Assessment - Pain Description Pain Location: L shoulder/scapula Current Pain Intensity: mild to mod soreness shoulder joint and scapular region - Heat/Cryotherapy Treatment: Cryotherapy ([id number] prior to and 10mins following EX. Patient in sitting. ) Interventions - Exercise/Activities/Manual Therapy Exercises/Activities: [id number] PROM all directions left shoulder, elbow, and wrist. Isometric shoulder add, ext, abd, IR and ER. Isometric triceps and bicep , wrist flexion and extension. 1# wand for chest press and shoulder flexion. Yellow theraband for left shoulder IR, ER, ext, and short range flexion. Yellow theraband for forward press and sacap retraction. Continued with assisted left shoulder flexion, scaption, and abduction, multipe sets of 5reps. Active bilateral flexion to shoulder height while holding ball between hand. Resistive short range flexion with 1# ball, 2s/5reps. Total minutes of Exercise: 30mins Manual Therapy: 10mins trigger point release to the left traps and mid scap musculature. Patient in sitting. Total minutes of Manual Therapy: 10mins HOME EXERCISE PROGRAM: pendulum, gentle scapula retraction, squeeze ball, cervical lateral flexion stretching. Wand for shoulder flexion and ER in supine and to shoulder height in sitting. Green theraband for scapular retraction. Yellow theraband for short range bilateral shoulder ER. - Charges Total Direct Minutes: 40mins Total Treatment Time: 60mins Procedures billed for this date of service:: CP, EX2, MT Assessment: Patient progressing with AAROM and light resistive exercise at low levels. Patient demonstrates compliance with HEP?: Yes Short Term Goals Goal #1: Pt independent and compliant with basic HEP. Goal to be met by: 11/03/16 (100%) Progress towards Goal:: Met Goal #2: PROM of the left shoulder WFL's. Goal to be met by: 11/03/16 (100%) Progress towards Goal:: Met Goal #3: Patient able to tolerate PROM with minimal reports of pain. Goal to be met by: 11/03/16 (100%) Progress towards Goal:: Met Goal #4: Pt to demonstrate good postural awareness. 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 Goal to be met by: 01/18/17 Progress towards goal: Progressing Goal #2: Score on UE functional scale improved to < 20% impairment. Goal to be met by: 01/18/17 Goal #3: Pt to use left UE for all selfcare, ADL's, and functional reaching w/o pain Goal to be met by: 01/18/17 Progress towards goal: Progressing Goal #4: Pt able to return to work with minimal limitations. Goal to be met by: 01/18/17 Plan PLAN OF CARE EXPIRES ON:: 01/18/17 ORDER # VISITS AND/OR THROUGH DATE: 01/18/17 PLAN: Progress Exercises (Continue progressing AAROM and light resistance at lower levels, preparing for follow-up with physican.)
--- NOTE | 2017-01-08 11:20 | RS.OPPTDN ---
Subjective Date of Note: 01/08/17 Visit #: 26 Date of Evaluation: 10/20/16 Payer Source: Workman's Comp Treatment Diagnosis: Left shoulder pain, left shoulder stiffness, s/p RTC repair Current Subjective/complaints:: Patient reports continued improvement in AROM. He reports weakness with light resistive exercises. Pain Assessment - Pain Description Pain Location: L shoulder/scapula Current Pain Intensity: soreness posterior shoulder joint and upper traps - Heat/Cryotherapy Treatment: Cryotherapy ([id number] to the left shoulder joint prior to EX. Patient in sitting. ) Interventions - Exercise/Activities/Manual Therapy Exercises/Activities: [id number] PROM all directions left shoulder, elbow, and wrist. Isometric shoulder add, ext, abd, IR and ER. Isometric triceps and bicep , wrist flexion and extension. 1# wand for chest press and shoulder flexion. Began 3# wand for bilateral shoulder flexion to 90 degrees. Yellow theraband for left shoulder IR, ER, ext, and short range flexion. Yellow theraband for forward press and sacap retraction. Continued with assisted left shoulder flexion, scaption, and abduction, multipe sets of 5reps. Active bilateral flexion to shoulder height while holding ball between hand. Resistive short range flexion, scaption, and abduction with 1# dumbell, sets of 5reps. Total minutes of Exercise: 30mins Manual Therapy: 8mins trigger point release to the left traps and mid scap musculature. Patient in sitting. Total minutes of Manual Therapy: 8mins HOME EXERCISE PROGRAM: pendulum, gentle scapula retraction, squeeze ball, cervical lateral flexion stretching. Wand for shoulder flexion and ER in supine and to shoulder height in sitting. Green theraband for scapular retraction. Yellow theraband for short range bilateral shoulder ER. - Objective Findings Observations,measurements,etc.: Patient demos active left shoulder flexion to 110 degrees while maintain good shoulder girdle postion, but cannot perform more than 2-3 reps due to fatigue. - Charges Total Direct Minutes: 38mins Total Treatment Time: 53mins Procedures billed for this date of service:: CP, EX2, MT Assessment: Patient progressing well with AROM and AAROM per protocol/ physicians orders. Patient Education: Home Exercise Program, Home Safety Patient demonstrates compliance with HEP?: Yes Short Term Goals Goal #1: Pt independent and compliant with basic HEP. Goal to be met by: 11/03/16 (100%) Progress towards Goal:: Met Goal #2: PROM of the left shoulder WFL's. Goal to be met by: 11/03/16 (100%) Progress towards Goal:: Met Goal #3: Patient able to tolerate PROM with minimal reports of pain. Goal to be met by: 11/03/16 (100%) Progress towards Goal:: Met Goal #4: Pt to demonstrate good postural awareness. Goal to be met by: 11/03/16 (100%) Progress towards Goal:: Met [facility] Goals Goal #1: Pt knows HEP and to continue exercises after D/C from therapy. Goal to be met by: 01/18/17 Progress towards goal: Progressing Goal #2: Score on UE functional scale improved to < 20% impairment. Goal to be met by: 01/18/17 Goal #3: Pt to use left UE for all selfcare, ADL's, and functional reaching w/o pain Goal to be met by: 01/18/17 Progress towards goal: Progressing Goal #4: Pt able to return to work with minimal limitations. Goal to be met by: 01/18/17 Plan PLAN OF CARE EXPIRES ON:: 01/18/17 ORDER # VISITS AND/OR THROUGH DATE: 01/18/17 PLAN: Progress Exercises (Continue and progress AAROM, AROM, and gentle resistive exercise.)
== END ==
PROVIDERS: ATTEND Orthopaedic Surgery Sports Medicine
DX: M75.102 Unspecified rotator cuff tear or rupture of left shoulder, not specified as traumatic (principal); Z51.89 Encounter for other specified aftercare; Z98.890 Other specified postprocedural states

== ENCOUNTER 2017-02-07 08:00 | Outpatient (RCR) ==
--- NOTE | 2017-01-11 11:27 | RS.OPPTDN ---
Subjective Date of Note: 01/11/17 Visit #: 27 Date of Evaluation: 10/20/16 Payer Source: Workman's Comp Treatment Diagnosis: Left shoulder pain, left shoulder stiffness, s/p RTC repair Current Subjective/complaints:: Patient reports trying to increase some light activities around the house with some increase in soreness in upper traps and shoulder blade region. States he is cautious to keep left arm close to side to avoid overuse. Pain Assessment - Pain Description Pain Location: L shoulder/scapula Current Pain Intensity: soreness posterior shoulder joint and upper traps - Heat/Cryotherapy Treatment: Cryotherapy ([id number] to the left shoulder prior to EX. Patient in sitting. ) Interventions - Exercise/Activities/Manual Therapy Exercises/Activities: [id number] PROM all directions left shoulder, elbow, and wrist. Isometric shoulder add, ext, abd, IR and ER. Isometric triceps and bicep , wrist flexion and extension. Increased to 3# wand for chest press and shoulder flexion. Yellow theraband for left shoulder IR, ER, ext, and short range flexion. Yellow theraband for forward press and red theraband for scapular retraction. Continued with assisted left shoulder flexion, scaption, and abduction, multipe sets of 5reps. Active bilateral flexion to shoulder height while holding ball between hand. Resistive short range flexion, scaption , and abduction with 1# dumbell, sets of 5reps. Shoulder pulleys. Total minutes of Exercise: 35mins Manual Therapy: 8mins trigger point release to the left traps and mid scap musculature. Patient in sitting. Total minutes of Manual Therapy: 8mins HOME EXERCISE PROGRAM: pendulum, gentle scapula retraction, squeeze ball, cervical lateral flexion stretching. Wand for shoulder flexion and ER in supine and to shoulder height in sitting. Green theraband for scapular retraction. Yellow theraband for short range bilateral shoulder ER. - Objective Findings Observations,measurements,etc.: Patient demos active left shoulder flexion to 150 degrees x2 reps then is fatigued. - Charges Total Direct Minutes: 43mins Total Treatment Time: 58mins Procedures billed for this date of service:: CP, EX2, MT Assessment: Patient progressing with AAROM and AROM of the left shoulder. He will need to continue to progress strength in preparation for return to full work duties. Patient Education: Body/Joint mechanics, Home Exercise Program Patient demonstrates compliance with HEP?: Yes Short Term Goals Goal #1: Pt independent and compliant with basic HEP. Goal to be met by: 11/03/16 (100%) Progress towards Goal:: Met Goal #2: PROM of the left shoulder WFL's. Goal to be met by: 11/03/16 (100%) Progress towards Goal:: Met Goal #3: Patient able to tolerate PROM with minimal reports of pain. Goal to be met by: 11/03/16 (100%) Progress towards Goal:: Met Goal #4: Pt to demonstrate good postural awareness. 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 Goal to be met by: 01/18/17 Progress towards goal: Progressing Goal #2: Score on UE functional scale improved to < 20% impairment. Goal to be met by: 01/18/17 Goal #3: Pt to use left UE for all selfcare, ADL's, and functional reaching w/o pain Goal to be met by: 01/18/17 Progress towards goal: Progressing Goal #4: Pt able to return to work with minimal limitations. Goal to be met by: 01/18/17 Plan PLAN OF CARE EXPIRES ON:: 01/18/17 ORDER # VISITS AND/OR THROUGH DATE: 01/18/17 PLAN: Continue Plan of Care
--- NOTE | 2017-01-15 10:02 | RS.OPPTDN ---
Subjective Date of Note: 01/15/17 Visit #: 28 Date of Evaluation: 10/20/16 Payer Source: Workman's Comp Treatment Diagnosis: Left shoulder pain, left shoulder stiffness, s/p RTC repair Current Subjective/complaints:: Patient reports soreness in the anterior left shoulder joint that he feels is due to increasing exercise and light functional activities. States he will see physician this week and anticipates orders to progress strengthening. Pain Assessment - Pain Description Pain Location: L shoulder/scapula Current Pain Intensity: soreness anterior shoulder joint, muscle tension upper traps and mid scap - Heat/Cryotherapy Treatment: Cryotherapy ([id number] left shoulder prior to EX. Patient in sitting. ) Interventions - Exercise/Activities/Manual Therapy Exercises/Activities: [id number] PROM all directions left shoulder, elbow, and wrist. Isometric shoulder add, ext, abd, IR and ER. Isometric triceps and bicep , wrist flexion and extension. Increased to 3# wand for chest press and shoulder flexion. Yellow theraband for left shoulder IR, ER, ext, and short range flexion, forward press and scapular retraction, all 2s/10reps each. Continued with assisted left shoulder flexion, scaption, and abduction, multipe sets of 5reps. Resistive short range flexion, scaption, and abduction with 1# dumbell, sets of 5reps. Ended with end range stretching. Total minutes of Exercise: 35mins Manual Therapy: 2mins trigger point release to the left traps and mid scap musculature. Patient in sitting. Total minutes of Manual Therapy: 2mins HOME EXERCISE PROGRAM: pendulum, gentle scapula retraction, squeeze ball, cervical lateral flexion stretching. Wand for shoulder flexion and ER in supine and to shoulder height in sitting. Green theraband for scapular retraction. Yellow theraband for short range bilateral shoulder ER. - Objective Findings Observations,measurements,etc.: Demos active left shoulder flexion to 152 degrees. Patient demos essentially equal hand edge banding off bearer, with left at 70# and right at 67#. - Charges Total Direct Minutes: 37mins Total Treatment Time: 52mins Procedures billed for this date of service:: CP, EX2 Assessment: Patient continues to make consistent progress and should be able to advance strengthening when ordered by physician. Patient Education: Home Exercise Program Patient demonstrates compliance with HEP?: Yes Short Term Goals Goal #1: Pt independent and compliant with basic HEP. Goal to be met by: 11/03/16 (100%) Progress towards Goal:: Met Goal #2: PROM of the left shoulder WFL's. Goal to be met by: 11/03/16 (100%) Progress towards Goal:: Met Goal #3: Patient able to tolerate PROM with minimal reports of pain. Goal to be met by: 11/03/16 (100%) Progress towards Goal:: Met Goal #4: Pt to demonstrate good postural awareness. Goal to be met by: 11/03/16 (100%) Progress towards Goal:: Met Longterm Goals Goal #1: Pt knows HEP and to continue exercises after D/C from therapy. Goal to be met by: 01/18/17 Progress towards goal: Progressing Goal #2: Score on UE functional scale improved to < 20% impairment. Goal to be met by: 01/18/17 Goal #3: Pt to use left UE for all selfcare, ADL's, and functional reaching w/o pain Goal to be met by: 01/18/17 Progress towards goal: Progressing Goal #4: Pt able to return to work with minimal limitations. Goal to be met by: 01/18/17 Progress towards goal: No Change Plan PLAN OF CARE EXPIRES ON:: 01/18/17 ORDER # VISITS AND/OR THROUGH DATE: 01/18/17 PLAN: Continue Plan of Care (Will progress strengthening with orders from physician to progress patient back to PLOF to perform work duties.)
--- NOTE | 2017-01-22 10:12 | RS.OPPTDN ---
Subjective Date of Note: 01/22/17 Visit #: 29 Date of Evaluation: 10/20/16 Payer Source: Workman's Comp Treatment Diagnosis: Left shoulder pain, left shoulder stiffness, s/p RTC repair Current Subjective/complaints:: Patient presents to department with continuation orders that include progressive protocol. Reports continued muscle soreness in the upper traps, mid scap, and posterior left shoulder joint. Pain Assessment - Pain Description Pain Location: L shoulder/scapula Current Pain Intensity: soreness anterior shoulder joint, muscle tension upper traps and mid scap - Heat/Cryotherapy Treatment: Cryotherapy ([id number] to the left shoulder following EX. Patient in sitting. ) Interventions - Exercise/Activities/Manual Therapy Exercises/Activities: [id number] PROM all directions left shoulder, elbow, and wrist. Isometric shoulder add, ext, abd, IR and ER. Isometric triceps and bicep , wrist flexion and extension. 3# wand for chest press and shoulder flexion. Yellow theraband for left shoulder IR, ER, flexion, and extension all below shoulder height. Yellow theraband for bilateral ER, 4s/5reps. Increased to green theraband for bilateral scapular retraction, 4s/10reps each. Continued with assisted left shoulder flexion, scaption, and abduction, multipe sets of 5reps. Resistive short range flexion, scaption, and abduction with 1# cuff weight, sets of 5reps. Began cuff series with 3# for flexion and extension. Chest passing with light therapy ball and left handed basketball shooting, sets of 5reps. Ended with end range stretching. Total minutes of Exercise: 38mins Manual Therapy: 3mins trigger point release to the left traps and mid scap musculature. Patient in sitting. Total minutes of Manual Therapy: 41mins HOME EXERCISE PROGRAM: pendulum, gentle scapula retraction, squeeze ball, cervical lateral flexion stretching. Wand for shoulder flexion and ER in supine and to shoulder height in sitting. Green theraband for scapular retraction. Yellow theraband for short range bilateral shoulder ER. - Charges Total Direct Minutes: 41mins Total Treatment Time: 56mins Procedures billed for this date of service:: EX3, CP Assessment: Patient tolerates progression of strengthening exercise well. Patient Education: Home Exercise Program, Home Safety Patient demonstrates compliance with HEP?: Yes Short Term Goals Goal #1: Pt independent and compliant with basic HEP. Goal to be met by: 11/03/16 (100%) Progress towards Goal:: Met Goal #2: PROM of the left shoulder WFL's. Goal to be met by: 11/03/16 (100%) Progress towards Goal:: Met Goal #3: Patient able to tolerate PROM with minimal reports of pain. Goal to be met by: 11/03/16 (100%) Progress towards Goal:: Met Goal #4: Pt to demonstrate good postural awareness. Goal to be met by: 11/03/16 (100%) Progress towards Goal:: Met Supervisor [employer] Goals Goal #1: Pt knows HEP and to continue exercises after D/C from therapy. Goal to be met by: 02/23/17 Progress towards goal: Progressing Goal #2: Score on UE functional scale improved to < 20% impairment. Goal to be met by: 02/23/17 Goal #3: Pt to use left UE for all selfcare, ADL's, and functional reaching w/o pain Goal to be met by: 02/23/17 Progress towards goal: Progressing Goal #4: Pt able to return to work with minimal limitations. Goal to be met by: 02/23/17 Progress towards goal: No Change Plan PLAN OF CARE EXPIRES ON:: 02/23/17 ORDER # VISITS AND/OR THROUGH DATE: 02/23/17 PLAN: Progress Exercises Comments:: Continue progressing strengthening of the left UE per protocol.
--- NOTE | 2017-01-25 12:08 | RS.OPPTDN ---
Subjective Date of Note: 01/25/17 Visit #: 30 Date of Evaluation: 10/20/16 Payer Source: Workman's Comp Treatment Diagnosis: Left shoulder pain, left shoulder stiffness, s/p RTC repair Current Subjective/complaints:: No new c/o. Continue to have general sorenss and fatigue with light resistive exercise. Pain Assessment - Pain Description Pain Location: L shoulder/scapula Current Pain Intensity: soreness anterior shoulder joint, muscle tension upper traps and mid scap - Heat/Cryotherapy Treatment: Cryotherapy ([id number] to the left shoulder following EX. Patient in sitting. ) Interventions - Exercise/Activities/Manual Therapy Exercises/Activities: [id number] PROM all directions left shoulder, elbow, and wrist. Isometric shoulder add, ext, abd, IR and ER. Isometric triceps and bicep , wrist flexion and extension. 3# wand for chest press and shoulder flexion. Increased to red theraband for left shoulder IR, ER, flexion, and extension all below shoulder height. Yellow theraband for bilateral ER, 2s/10reps. Green theraband for bilateral scapular retraction, 2s/10reps each. Continued with assisted left shoulder flexion, scaption, and abduction, multipe sets of 5reps. Resistive short range flexion, scaption, and abduction with 1# cuff weight, sets of 5reps. Cuff series with 3# for flexion, scaption, abduction, and extension. Chest passing with light therapy ball and left handed basketball shooting, sets of 5reps. Cable pulleys with 30# for bilateral scapular retraction and short range bilateral shoulder extension. Total minutes of Exercise: 40mins Manual Therapy: 2mins trigger point release to the left traps and mid scap musculature. Patient in sitting. Total minutes of Manual Therapy: 2mins HOME EXERCISE PROGRAM: pendulum, gentle scapula retraction, squeeze ball, cervical lateral flexion stretching. Wand for shoulder flexion and ER in supine and to shoulder height in sitting. Green theraband for scapular retraction. Yellow theraband for short range bilateral shoulder ER. - Charges Total Direct Minutes: 42mins Total Treatment Time: 57mins Procedures billed for this date of service:: EX3, CP Assessment: Patient progressing with light resistive exercises. Patient Education: Home Exercise Program Patient demonstrates compliance with HEP?: Yes Short Term Goals Goal #1: Pt independent and compliant with basic HEP. Goal to be met by: 11/03/16 (100%) Progress towards Goal:: Met Goal #2: PROM of the left shoulder WFL's. Goal to be met by: 11/03/16 (100%) Progress towards Goal:: Met Goal #3: Patient able to tolerate PROM with minimal reports of pain. Goal to be met by: 11/03/16 (100%) Progress towards Goal:: Met Goal #4: Pt to demonstrate good postural awareness. 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 Goal to be met by: 02/23/17 Progress towards goal: Progressing Goal #2: Score on UE functional scale improved to < 20% impairment. Goal to be met by: 02/23/17 Goal #3: Pt to use left UE for all selfcare, ADL's, and functional reaching w/o pain Goal to be met by: 02/23/17 Progress towards goal: Progressing Goal #4: Pt able to return to work with minimal limitations. Goal to be met by: 02/23/17 Progress towards goal: No Change Plan PLAN OF CARE EXPIRES ON:: 02/23/17 ORDER # VISITS AND/OR THROUGH DATE: 02/23/17 PLAN: Continue Plan of Care
--- NOTE | 2017-01-29 11:38 | RS.OPPTDN ---
Subjective Date of Note: 01/29/17 Visit #: 31 Date of Evaluation: 10/20/16 Payer Source: Workman's Comp Treatment Diagnosis: Left shoulder pain, left shoulder stiffness, s/p RTC repair Current Subjective/complaints:: Patient reports strengthening of the left shoulder seems to be going slow. Reports muscle soreness in the upper traps is much better. Pain Assessment - Pain Description Pain Location: L shoulder/scapula Current Pain Intensity: soreness left shoulder joint, upper traps and mid scap - Heat/Cryotherapy Treatment: Cryotherapy (Ended with CP to the left shoulder [id number]. ) Interventions - Exercise/Activities/Manual Therapy Exercises/Activities: [id number] PROM all directions left shoulder, elbow, and wrist. Isometric shoulder add, ext, abd, IR and ER. Isometric triceps and bicep , wrist flexion and extension. 3# wand for chest press and shoulder flexion. Red theraband for left shoulder IR, ER, flexion, extension, biceps, and triceps , all below shoulder height. Increased to red theraband for bilateral ER, 2s/ 10reps. Green theraband for bilateral scapular retraction, 2s/10reps each. AAROM into left shoulder flexion, scaption, and abduction, multipe sets of 5reps. Resistive short range flexion, scaption, and abduction decreased to 1/2# cuff weight, sets of 5reps. Chest passing with light therapy ball and left handed basketball shooting, increased to sets of 10reps. Cable pulleys with 30# for bilateral scapular retraction and short range bilateral shoulder extension. Began cable pulleys with 20# for chest press. Green theraband for lat pull downs , 15reps. Ended with additional end range PROM. Total minutes of Exercise: 38mins Manual Therapy: 2mins trigger point release to the left traps and mid scap musculature. Patient in sitting. Total minutes of Manual Therapy: 2mins HOME EXERCISE PROGRAM: pendulum, gentle scapula retraction, squeeze ball, cervical lateral flexion stretching. Wand for shoulder flexion and ER in supine and to shoulder height in sitting. Green theraband for scapular retraction. Yellow theraband for short range bilateral shoulder ER. - Charges Total Direct Minutes: 40mins Total Treatment Time: 55mins Procedures billed for this date of service:: EX3, CP Assessment: Patient progressing with strengthening exercises. Patient Education: Home Exercise Program Patient demonstrates compliance with HEP?: Yes Short Term Goals Goal #1: Patient to demo full active left shoulder flexion. Goal to be met by: 02/09/17 (Updated 01/29/17) Progress towards Goal:: Progressing Goal #2: Patient to demo full active left shoulder abduction. Goal to be met by: 02/09/17 (Updated 01/29/17) Progress towards Goal:: Progressing Goal #3: Patient able to tolerate PROM with minimal reports of pain. Goal to be met by: 11/03/16 (100%) Progress towards Goal:: Met Goal #4: Pt to demonstrate good postural awareness. Goal to be met by: 11/03/16 (100%) Progress towards Goal:: Met Pediatric Hospitalist Goals Goal #1: Pt knows HEP and to continue exercises after D/C from therapy. Goal to be met by: 02/23/17 Progress towards goal: Progressing Goal #2: Score on UE functional scale improved to < 20% impairment. Goal to be met by: 02/23/17 Goal #3: Pt to use left UE for all selfcare, ADL's, and functional reaching w/o pain Goal to be met by: 02/23/17 Progress towards goal: Progressing Goal #4: Pt able to return to work with minimal limitations. Goal to be met by: 02/23/17 Progress towards goal: No Change Plan PLAN OF CARE EXPIRES ON:: 02/23/17 ORDER # VISITS AND/OR THROUGH DATE: 02/23/17 PLAN: Continue Plan of Care (Continue progression of exercise with current orders and progressing with updated treatment goals.)
--- NOTE | 2017-02-01 14:27 | RS.OPPTDN ---
Subjective Date of Note: 02/01/17 Visit #: 32 Date of Evaluation: 10/20/16 Payer Source: Workman's Comp Treatment Diagnosis: Left shoulder pain, left shoulder stiffness, s/p RTC repair Current Subjective/complaints:: Patient reports he feels like he has had a good work out today. Reports fatigue at the left shoulder with resistive exercise. Pain Assessment - Pain Description Pain Location: L shoulder/scapula Current Pain Intensity: soreness left shoulder joint, upper traps and mid scap Interventions - Exercise/Activities/Manual Therapy Exercises/Activities: [id number]. PROM all directions left shoulder, elbow, and wrist. Isometric shoulder add, ext, abd, IR and ER. Isometric triceps and bicep , wrist flexion and extension. 3# wand for chest press and shoulder flexion. Red theraband for bilatearl shoulder ER. Green theraband left shoulder IR, ER, flexion, extension, chest press, retraction, biceps, and triceps, all below shoulder height. Green theraband for bilateral scapular retraction, 2s/10reps each. AAROM into left shoulder flexion, scaption, and abduction, multipe sets of 5reps. Resistive short range flexion, scaption, and abduction decreased to 1/ 2# cuff weight, sets of 5reps. Chest passing with light therapy ball and overhead ball toss. Cable pulleys with 30# for bilateral scapular retraction and short range bilateral shoulder extension. Cable pulleys with 40# for chest press, and 20# triceps push downs, and 20# biceps curls. Green theraband for lat pull downs, 15reps. Ended with additional end range PROM. Total minutes of Exercise: 40mins Manual Therapy: NA HOME EXERCISE PROGRAM: pendulum, gentle scapula retraction, squeeze ball, cervical lateral flexion stretching. Wand for shoulder flexion and ER in supine and to shoulder height in sitting. Green theraband for scapular retraction. Yellow theraband for short range bilateral shoulder ER. - Charges Total Direct Minutes: 40mins Total Treatment Time: 40mins Procedures billed for this date of service:: EX3 Assessment: Patient progressing well with strengthening exercises. Patient Education: Home Exercise Program Patient demonstrates compliance with HEP?: Yes Short Term Goals Goal #1: Patient to demo full active left shoulder flexion. Goal to be met by: 02/09/17 (Updated 01/29/17) Progress towards Goal:: Progressing Goal #2: Patient to demo full active left shoulder abduction. Goal to be met by: 02/09/17 (Updated 01/29/17) Progress towards Goal:: Progressing Goal #3: Patient able to tolerate PROM with minimal reports of pain. Goal to be met by: 11/03/16 (100%) Progress towards Goal:: Met Goal #4: Pt to demonstrate good postural awareness. 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 Goal to be met by: 02/23/17 Progress towards goal: Progressing Goal #2: Score on UE functional scale improved to < 20% impairment. Goal to be met by: 02/23/17 Goal #3: Pt to use left UE for all selfcare, ADL's, and functional reaching w/o pain Goal to be met by: 02/23/17 Progress towards goal: Progressing Goal #4: Pt able to return to work with minimal limitations. Goal to be met by: 02/23/17 Progress towards goal: No Change Plan PLAN OF CARE EXPIRES ON:: 02/23/17 ORDER # VISITS AND/OR THROUGH DATE: 02/23/17 PLAN: Continue Plan of Care
--- NOTE | 2017-02-07 09:04 | RS.OPPTDN ---
Subjective Date of Note: 02/07/17 Visit #: 33 Date of Evaluation: 10/20/16 Payer Source: Workman's Comp Treatment Diagnosis: Left shoulder pain, left shoulder stiffness, s/p RTC repair Current Subjective/complaints:: Patient reports soreness left shoulder with progressive strengthening. Pain Assessment - Pain Description Pain Location: L shoulder/scapula Current Pain Intensity: soreness left shoulder joint, upper traps and mid scap Interventions - Exercise/Activities/Manual Therapy Exercises/Activities: [id number]. PROM all directions left shoulder, elbow, and wrist. Isometric shoulder add, ext, abd, IR and ER. Isometric triceps and bicep , wrist flexion and extension. Increased to 4 1/2# wand for chest press and shoulder flexion, multiple reps. Red theraband for bilatearl shoulder ER. Green theraband left shoulder IR, ER, flexion, extension, chest press, retraction, biceps, and triceps, all below shoulder height. Green theraband for bilateral scapular retraction, 2s/10reps each. AAROM into left shoulder flexion, scaption , and abduction, multipe sets of 5reps. Resistive short range flexion, scaption , and abduction increased to 1# cuff weight, sets of 5reps. Added 1# cuff weight to left wrist for chest passing with therapy ball and basketball shoot. Overhead shelf reaching with 2# ball. Cable pulleys with 30# for bilateral scapular retraction and short range bilateral shoulder extension. Cable pulleys with 40# for chest press, and increased to 30# triceps push downs, and 20# biceps curls. Left shoulder forward press 10#. Ball on the wall with 1# to left wrist. Wall push-ups. Ended with additional end range PROM. Total minutes of Exercise: 40mins Manual Therapy: NA HOME EXERCISE PROGRAM: pendulum, gentle scapula retraction, squeeze ball, cervical lateral flexion stretching. Wand for shoulder flexion and ER in supine and to shoulder height in sitting. Green theraband for scapular retraction. Yellow theraband for short range bilateral shoulder ER. - Objective Findings Observations,measurements,etc.: Active left shoulder flexion and abduction to 170 degrees. Left hand layout man 78#, with right only 65#. - Charges Total Direct Minutes: 40mins Total Treatment Time: 42mins Procedures billed for this date of service:: EX3 Assessment: Patient progressing with resistive exercises and with overhead reaching. He will need to increase strength to be able to perform work duties. Patient Education: Home Exercise Program Patient demonstrates compliance with HEP?: Yes Short Term Goals Goal #1: Patient to demo full active left shoulder flexion. Goal to be met by: 02/09/17 (Updated 01/29/17) Progress towards Goal:: Progressing Goal #2: Patient to demo full active left shoulder abduction. Goal to be met by: 02/09/17 (Updated 01/29/17) Progress towards Goal:: Progressing Goal #3: Patient able to tolerate PROM with minimal reports of pain. Goal to be met by: 11/03/16 (100%) Progress towards Goal:: Met Goal #4: Pt to demonstrate good postural awareness. Goal to be met by: 11/03/16 (100%) Progress towards Goal:: Met Care Home Goals Goal #1: Pt knows HEP and to continue exercises after D/C from therapy. Goal to be met by: 02/23/17 Progress towards goal: Progressing Goal #2: Score on UE functional scale improved to < 20% impairment. Goal to be met by: 02/23/17 Goal #3: Pt to use left UE for all selfcare, ADL's, and functional reaching w/o pain Goal to be met by: 02/23/17 Progress towards goal: Progressing Goal #4: Pt able to return to work with minimal limitations. Goal to be met by: 02/23/17 Progress towards goal: No Change Plan PLAN OF CARE EXPIRES ON:: 02/23/17 ORDER # VISITS AND/OR THROUGH DATE: 02/23/17 PLAN: Progress Exercises (Progress with strengthening to progress patient to return to work.)
== END 2017-02-08 ==
PROVIDERS: ATTEND Orthopaedic Surgery Sports Medicine
DX: Z51.89 Encounter for other specified aftercare (principal); M25.512 Pain in left shoulder; M75.102 Unspecified rotator cuff tear or rupture of left shoulder, not specified as traumatic; Z98.890 Other specified postprocedural states

== ENCOUNTER 2017-03-08 08:00 | Outpatient (RCR) ==
--- NOTE | 2017-02-09 09:49 | RS.OPPTDN ---
Subjective Date of Note: 02/09/17 Visit #: 34 Date of Evaluation: 10/20/16 Payer Source: Workman's Comp Treatment Diagnosis: Left shoulder pain, left shoulder stiffness, s/p RTC repair Current Subjective/complaints:: Patient reports soreness with increase in resistive exercise. States CP helps reduce discomfort. C/c is difficulty with repetative left shoulder abduction due to weakness. Pain Assessment - Pain Description Pain Location: L shoulder/scapula Current Pain Intensity: soreness left shoulder joint, upper traps and mid scap - Heat/Cryotherapy Treatment: Cryotherapy ([id number] to the left shoulder joint following exercise due to increase soreness. Patient in sitting. ) Interventions - Exercise/Activities/Manual Therapy Exercises/Activities: [id number]. PROM and end range stretch all directions left shoulder. Increased to 5# wand for chest press and shoulder flexion, multiple reps. Increased to green theraband for bilateral shoulder ER. Green theraband left shoulder IR, ER, flexion, extension, chest press, retraction, biceps, and triceps, all below shoulder height. Green theraband for bilateral scapular retraction, 4s/10reps each. AAROM into left shoulder flexion, scaption, and abduction, multipe sets of 5reps. Resistive short range flexion, scaption, and abduction increased to 1# cuff weight, sets of 5reps. 1# cuff weight to left wrist for chest passing with therapy ball and basketball "shooting". Overhead shelf reaching with 2# ball. Cable pulleys with 30# for bilateral scapular retraction and short range bilateral shoulder extension. 30# triceps push downs , and 20# biceps curls. Left shoulder flex, ext, add, and abd at low level, 5# cable sohan 10reps each. Left UE small ball on the wall with 1#, then large ball overhead on wall. Wall push-ups. Added 3# dumbell to cuff series, 4 directions. Ended with additional end range PROM. Total minutes of Exercise: 43mins Manual Therapy: NA HOME EXERCISE PROGRAM: pendulum, gentle scapula retraction, squeeze ball, cervical lateral flexion stretching. Wand for shoulder flexion and ER in supine and to shoulder height in sitting. Green theraband for scapular retraction. Yellow theraband for short range bilateral shoulder ER. - Objective Findings Observations,measurements,etc.: Patient demos full active flexion flexion, but abduction limited to approx 165 due to discomfort. - Charges Total Direct Minutes: 43mins Total Treatment Time: 58mins Procedures billed for this date of service:: EX3, CP Assessment: Patient progresing with resistive exercises, working on strengthening for return to work duties. Patient will need to increase strength with work above shoulder height and overhead. Patient Education: Body/Joint mechanics, Home Exercise Program Patient demonstrates compliance with HEP?: Yes Short Term Goals Goal #1: Patient to demo full active left shoulder flexion. Goal to be met by: 02/09/17 (Updated 01/29/17) Progress towards Goal:: Met Goal #2: Patient to demo full active left shoulder abduction. Goal to be met by: 02/09/17 (Updated 01/29/17) Progress towards Goal:: Progressing Goal #3: Patient able to tolerate PROM with minimal reports of pain. Goal to be met by: 11/03/16 (100%) Progress towards Goal:: Met Goal #4: Pt to demonstrate good postural awareness. 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 Goal to be met by: 02/23/17 Progress towards goal: Progressing Goal #2: Score on UE functional scale improved to < 20% impairment. Goal to be met by: 02/23/17 Goal #3: Pt to use left UE for all selfcare, ADL's, and functional reaching w/o pain Goal to be met by: 02/23/17 Progress towards goal: Progressing Goal #4: Pt able to return to work with minimal limitations. Goal to be met by: 02/23/17 Progress towards goal: No Change Plan PLAN OF CARE EXPIRES ON:: 02/23/17 ORDER # VISITS AND/OR THROUGH DATE: 02/23/17 PLAN: Progress Exercises (Continue with progression of strengthening, with focus on above 90 degrees flexion, working toward return to work.)
--- NOTE | 2017-02-14 09:26 | RS.OPPTDN ---
Subjective Date of Note: 02/14/17 Visit #: 35 Date of Evaluation: 10/20/16 Payer Source: Workman's Comp Treatment Diagnosis: Left shoulder pain, left shoulder stiffness, s/p RTC repair Current Subjective/complaints:: Patient reports increased soreness since increased resistive work last session. Pain Assessment - Pain Description Pain Location: L shoulder/scapula Current Pain Intensity: soreness left shoulder joint, upper traps and mid scap - Heat/Cryotherapy Treatment: Cryotherapy ([id number] to the left shoulder following EX. Patient in sitting. ) Interventions - Exercise/Activities/Manual Therapy Exercises/Activities: [id number]. PROM and end range stretch all directions left shoulder. Isometrics, multiple sets of 5 reps, IR and ER at 90 degrees flex/abd , also flexion/extension while holding UE overhead. 5# wand for chest press and shoulder flexion, multiple reps. Green theraband for bilateral shoulder ER. Green theraband left shoulder IR, ER, flexion, extension, chest press, retraction, biceps, and triceps, all below shoulder height. Green theraband for bilateral scapular retraction, 4s/10reps each. AAROM into left shoulder flexion , scaption, and abduction, multipe sets of 5reps. Resistive short range flexion , scaption, and abduction increased to 1# cuff weight, sets of 5reps. 1# cuff weight to left wrist for chest passing with therapy ball and basketball "shooting". Overhead shelf reaching with 2# ball. Cable pulleys with 30# for bilateral scapular retraction and short range bilateral shoulder extension. 30# triceps push downs. Left shoulder flex, ext, add, and abd at low level, 5# cable sohan 2s/10reps each and 3s/10reps for short flexion. Yellow theraband for overhead short flexion and extension, 2s/10reps each. 1# cuff weight to left UE with large ball on the wall overhead. Ended with additional end range PROM. Total minutes of Exercise: 40mins Manual Therapy: NA HOME EXERCISE PROGRAM: pendulum, gentle scapula retraction, squeeze ball, cervical lateral flexion stretching. Wand for shoulder flexion and ER in supine and to shoulder height in sitting. Green theraband for scapular retraction. Yellow theraband for short range bilateral shoulder ER. - Charges Total Direct Minutes: 40mins Total Treatment Time: 52mins Procedures billed for this date of service:: EX3, CP Assessment: Patient continues to have weakness with active left shoulder flexion and abduction in the 80 to 100 degree range. Patient Education: Home Exercise Program Patient demonstrates compliance with HEP?: Yes Short Term Goals Goal #1: Patient to demo full active left shoulder flexion. Goal to be met by: 02/09/17 (Updated 01/29/17) Progress towards Goal:: Met Goal #2: Patient to demo full active left shoulder abduction. Goal to be met by: 02/09/17 (Updated 01/29/17) Progress towards Goal:: Progressing Goal #3: Patient able to tolerate PROM with minimal reports of pain. Goal to be met by: 11/03/16 (100%) Progress towards Goal:: Met Goal #4: Pt to demonstrate good postural awareness. Goal to be met by: 11/03/16 (100%) Progress towards Goal:: Met [facility] Goals Goal #1: Pt knows HEP and to continue exercises after D/C from therapy. Goal to be met by: 02/23/17 Progress towards goal: Progressing Goal #2: Score on UE functional scale improved to < 20% impairment. Goal to be met by: 02/23/17 Goal #3: Pt to use left UE for all selfcare, ADL's, and functional reaching w/o pain Goal to be met by: 02/23/17 Progress towards goal: Progressing Goal #4: Pt able to return to work with minimal limitations. Goal to be met by: 02/23/17 Progress towards goal: No Change Plan PLAN OF CARE EXPIRES ON:: 02/23/17 ORDER # VISITS AND/OR THROUGH DATE: 02/23/17 PLAN: Progress Exercises (Progress exercise with focus on mid range and overhead strengthening.)
--- NOTE | 2017-02-16 10:23 | RS.OPPTDN ---
Subjective Date of Note: 02/16/17 Visit #: 36 Date of Evaluation: 10/20/16 Payer Source: Workman's Comp Treatment Diagnosis: Left shoulder pain, left shoulder stiffness, s/p RTC repair Current Subjective/complaints:: Patient reports continued progress but is concerned about weakness with active and resistive left shoulder flexion and abduction at shoulder height. Reports he is required to perform some overhead lifting at work which he would not be able to perform at this time. Pain Assessment - Pain Description Pain Location: L shoulder/scapula Current Pain Intensity: soreness left shoulder joint with resistive exercise Interventions - Exercise/Activities/Manual Therapy Exercises/Activities: [id number]. PROM and end range stretch all directions left shoulder. Isometrics, multiple sets of 5 reps, IR and ER at 90 degrees flex/abd , also flexion/extension while holding UE overhead. 5# wand for chest press and shoulder flexion, multiple reps. Green theraband for bilateral shoulder ER. Green theraband left shoulder IR, ER, flexion, extension, chest press, retraction, biceps, and triceps, all below shoulder height. Green theraband for bilateral scapular retraction, 4s/10reps each. AROM into left shoulder flexion, scaption, and abduction, multipe sets of 5reps. Resistive short range flexion, scaption, and abduction 1# cuff weight, sets of 5reps. 1/2# cuff weight to left wrist with overhead flexion holding light ball, then active left flexion and abduction holding ball. Overhead shelf reaching increased to 3# weight. Cable pulleys with 30# for bilateral scapular retraction and short range bilateral shoulder extension. Left shoulder flex, ext, add, and abd at low level, 5# cable sohan 2s/10reps each. 1# cuff weight to left UE with large ball on the wall overhead. Cuff series with 4# dumbell, 5 directions. Ended with measurements and PROM/end range stretching. Total minutes of Exercise: 43mins Manual Therapy: NA HOME EXERCISE PROGRAM: pendulum, gentle scapula retraction, squeeze ball, cervical lateral flexion stretching. Wand for shoulder flexion and ER in supine and to shoulder height in sitting. Green theraband for scapular retraction. Yellow theraband for short range bilateral shoulder ER. - Objective Findings Observations,measurements,etc.: Patient demos full AROMN of the left shoulder. Demos 4-/5 MMT flexion and 3+/5 MMT with full range abduction. Patient has 4 to 4+/5 MMT at low levels with resistive work. 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 - Charges Total Direct Minutes: 43mins Total Treatment Time: 43mins Procedures billed for this date of service:: EX3 Assessment: Patient progressing well with strength and AROM activities. He has weakness at mid range with AROM that will need to be progressed for patient to be able to perform all work duties. Patient will benefit from continued strengthening to meet goals and prepare for return to work. Patient Education: Body/Joint mechanics, Home Exercise Program, Activity Modification Patient demonstrates compliance with HEP?: Yes Short Term Goals Goal #1: Patient to demo full active left shoulder flexion. Goal to be met by: 02/09/17 (Goal updated 01/29/17) Progress towards Goal:: Met Goal #2: Patient to demo full active left shoulder abduction. Goal to be met by: 02/09/17 (Goal updated 01/29/17) Progress towards Goal:: Met Goal #3: Patient able to tolerate PROM with minimal reports of pain. Goal to be met by: 11/03/16 (100%) Progress towards Goal:: Met Goal #4: Pt to demonstrate good postural awareness. Goal to be met by: 11/03/16 (100%) Progress towards Goal:: Met Shelter Goals Goal #1: Pt knows HEP and to continue exercises after D/C from therapy. Goal to be met by: 02/23/17 Progress towards goal: Progressing Goal #2: Score on UE functional scale improved to < 20% impairment. Goal to be met by: 02/23/17 (50%) Progress towards goal: Progressing Goal #3: Pt to use left UE for all selfcare, ADL's, and functional reaching w/o pain Goal to be met by: 02/23/17 Progress towards goal: Progressing Goal #4: Pt able to return to work with minimal limitations. Goal to be met by: 02/23/17 Progress towards goal: No Change Plan PLAN OF CARE EXPIRES ON:: 02/23/17 ORDER # VISITS AND/OR THROUGH DATE: 02/23/17 PLAN: Hold for follow-up (Patient scheduled for follow-up with physician on Sunday. Recommending continuation of therapy for progressive strengthening in preparation for return to work full duty.)
--- NOTE | 2017-02-26 12:07 | RS.OPPTDN ---
Subjective Date of Note: 02/26/17 Visit #: 37 Date of Evaluation: 10/20/16 Payer Source: Workman's Comp Treatment Diagnosis: Left shoulder pain, left shoulder stiffness, s/p RTC repair Current Subjective/complaints:: Patient reports doing better with active reaching and resistive exercises. Pain Assessment - Pain Description Pain Location: L shoulder/scapula Current Pain Intensity: soreness left shoulder joint with resistive exercise - Heat/Cryotherapy Treatment: Cryotherapy ([id number] to left shoulder following exercise. Patient in sitting. ) Interventions - Exercise/Activities/Manual Therapy Exercises/Activities: [id number]. 5# wand for chest press and shoulder flexion, multiple reps. Green theraband for bilateral shoulder ER, and overhead shoulder abd and add, multiple reps. Green theraband left shoulder IR, ER, flexion, extension, chest press, retraction, biceps, and triceps, all below shoulder height. Green theraband for bilateral scapular retraction, 4s/10reps each. AROM into left shoulder flexion, scaption, and abduction, multipe sets of 5reps. Resistive short range flexion, scaption, and abduction 1# cuff weight, sets of 5reps. 1/2# cuff weight to left wrist with overhead flexion holding light ball, then basketball shooting. Overhead shelf reaching 3# weight. Cable pulleys with 30# for bilateral scapular retraction and short range bilateral shoulder extension. Left shoulder flex, ext, add, and abd at low level, 5# cable sohan 2s/10reps each. Self-stretching at overhead bars. 1# cuff weight to left UE with large ball on the wall overhead. Cuff series with 4# dumbell, 5 directions. Began biceps curl with 8# dumbell. Total minutes of Exercise: 40mins Manual Therapy: NA HOME EXERCISE PROGRAM: pendulum, gentle scapula retraction, squeeze ball, cervical lateral flexion stretching. Wand for shoulder flexion and ER in supine and to shoulder height in sitting. Green theraband for scapular retraction. Yellow theraband for short range bilateral shoulder ER. - Charges Total Direct Minutes: 40mins Total Treatment Time: 52mins Procedures billed for this date of service:: EX3, CP Assessment: Continue to progress resistive exercise to increase strength with activity at or above shoulder height. Orders to continue 2x/week for 4 weeks, with insurance approval of 2x/week for 3 week or 6 sessions. Patient Education: Home Exercise Program Patient demonstrates compliance with HEP?: Yes Short Term Goals Goal #1: Patient to demo full active left shoulder flexion. Goal to be met by: 02/09/17 (Goal updated 01/29/17) Progress towards Goal:: Met Goal #2: Patient to demo full active left shoulder abduction. Goal to be met by: 02/09/17 (Goal updated 01/29/17) Progress towards Goal:: Met Goal #3: Patient able to tolerate PROM with minimal reports of pain. Goal to be met by: 11/03/16 (100%) Progress towards Goal:: Met Goal #4: Pt to demonstrate good postural awareness. 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 Goal to be met by: 03/23/17 Progress towards goal: Progressing Goal #2: Score on UE functional scale improved to < 20% impairment. Goal to be met by: 03/23/17 (50%) Progress towards goal: Progressing Goal #3: Pt to use left UE for all selfcare, ADL's, and functional reaching w/o pain Goal to be met by: 03/23/17 Progress towards goal: Progressing Goal #4: Pt able to return to work with minimal limitations. Goal to be met by: 03/23/17 Progress towards goal: No Change Plan PLAN OF CARE EXPIRES ON:: 03/23/17 ORDER # VISITS AND/OR THROUGH DATE: 03/23/17 PLAN: Progress Exercises (Continue and progress exercise per protocol with orders to continue.)
--- NOTE | 2017-03-01 09:12 | RS.OPPTDN ---
Subjective Date of Note: 03/01/17 Visit #: 38 Date of Evaluation: 10/20/16 Payer Source: Workman's Comp Treatment Diagnosis: Left shoulder pain, left shoulder stiffness, s/p RTC repair Current Subjective/complaints:: Patient reports resistive reaching at and just above shoulder height is getting better. Pain Assessment - Pain Description Pain Location: L shoulder/scapula Current Pain Intensity: soreness left shoulder joint with resistive exercise - Heat/Cryotherapy Treatment: Cryotherapy ([id number] to the left shoulder following EX. Patient in sitting. ) Interventions - Exercise/Activities/Manual Therapy Exercises/Activities: [id number]. Increased to 6# wand for chest press and shoulder flexion, multiple reps. Green theraband for bilateral shoulder ER, and overhead shoulder abd and add, multiple reps. Green theraband left shoulder IR, ER, flexion, extension, chest press, retraction, biceps, and triceps, all below shoulder height. Green theraband for bilateral scapular retraction, 4s/10reps each. AROM into left shoulder flexion, scaption, and abduction, multipe sets of 5reps. Resistive short range flexion with 1 1/2# cuff, 3s/5reps. Abduction no weight, 3s/5reps. 1 1/2# to the left wrist basketball shooting. Overhead shelf reaching 3# weight. Cable pulleys with 30# for bilateral scapular retraction and short range bilateral shoulder extension. Left shoulder flex, ext, add, and abd at low level, 5# cable sohan 2s/10reps each. Self-stretching at overhead bars. 1# cuff weight to left UE with large ball on the wall overhead. Cuff series increased to 8# dumbell, 5 directions. Biceps curl with 8# dumbell. Total minutes of Exercise: 40mins Manual Therapy: NA HOME EXERCISE PROGRAM: pendulum, gentle scapula retraction, squeeze ball, cervical lateral flexion stretching. Wand for shoulder flexion and ER in supine and to shoulder height in sitting. Green theraband for scapular retraction. Yellow theraband for short range bilateral shoulder ER. - Objective Findings Observations,measurements,etc.: Patient demos full left shoulder flexion with 1 1/2# cuff weight during resistive exericse. - Charges Total Direct Minutes: 40mins Total Treatment Time: 55mins Procedures billed for this date of service:: EX3, CP Assessment: Patient progressing with resistive overhead reaching. Patient Education: Home Exercise Program, Home Safety Patient demonstrates compliance with HEP?: Yes Short Term Goals Goal #1: Patient to demo full active left shoulder flexion. Goal to be met by: 02/09/17 (Goal updated 01/29/17) Progress towards Goal:: Met Goal #2: Patient to demo full active left shoulder abduction. Goal to be met by: 02/09/17 (Goal updated 01/29/17) Progress towards Goal:: Met Goal #3: Patient able to tolerate PROM with minimal reports of pain. Goal to be met by: 11/03/16 (100%) Progress towards Goal:: Met Goal #4: Pt to demonstrate good postural awareness. Goal to be met by: 11/03/16 (100%) Progress towards Goal:: Met [facility] Goals Goal #1: Pt knows HEP and to continue exercises after D/C from therapy. Goal to be met by: 03/23/17 Progress towards goal: Progressing Goal #2: Score on UE functional scale improved to < 20% impairment. Goal to be met by: 03/23/17 (50%) Progress towards goal: Progressing Goal #3: Pt to use left UE for all selfcare, ADL's, and functional reaching w/o pain Goal to be met by: 03/23/17 Progress towards goal: Progressing Goal #4: Pt able to return to work with minimal limitations. Goal to be met by: 03/23/17 Progress towards goal: No Change Plan PLAN OF CARE EXPIRES ON:: 03/23/17 ORDER # VISITS AND/OR THROUGH DATE: 03/23/17 PLAN: Progress Exercises
--- NOTE | 2017-03-05 09:13 | RS.OPPTDN ---
Subjective Date of Note: 03/05/17 Visit #: 39 Date of Evaluation: 10/20/16 Payer Source: Workman's Comp Treatment Diagnosis: Left shoulder pain, left shoulder stiffness, s/p RTC repair Current Subjective/complaints:: Patient reports continued improvement in left shoulder strength. He continues to have weakness with flexion and abduction at mid range. Pain Assessment - Pain Description Pain Location: L shoulder/scapula Current Pain Intensity: soreness left shoulder joint with resistive exercise Interventions - Exercise/Activities/Manual Therapy Exercises/Activities: [id number]. Increased to 7# wand for chest press and shoulder flexion, multiple reps. Green theraband for bilateral shoulder ER, and overhead shoulder abd and add, multiple reps. Green theraband left shoulder IR, ER, flexion, extension, chest press, retraction, biceps, and triceps, all below shoulder height. Green theraband for bilateral scapular retraction, 4s/10reps each. AROM into left shoulder flexion, scaption, and abduction, in short range and in full range, multipe sets of 5reps. Resistive short range flexion with 1# dumbell, 5rep sets. Increased to 2# to the left wrist basketball shooting. Overhead shelf reaching 3# weight. Cable pulleys with 30# for bilateral scapular retraction and short range bilateral shoulder extension. Left shoulder flex, ext, add, and abd at low level, increased to 10# cable sohan 2s/10reps each. Self-stretching at overhead bars. 3# cuff weight to left UE with large ball on the wall overhead. Overhead forward "baseball throw" position with red theraband. Shelf reaching with 3# weight. Cuff series with 8# dumbell, 5 directions. Total minutes of Exercise: 45mins Manual Therapy: NA HOME EXERCISE PROGRAM: pendulum, gentle scapula retraction, squeeze ball, cervical lateral flexion stretching. Wand for shoulder flexion and ER in supine and to shoulder height in sitting. Green theraband for scapular retraction. Yellow theraband for short range bilateral shoulder ER. - Objective Findings Observations,measurements,etc.: Patient continues to fatigue quickly with active abduction around 90 degrees due to weakness. - Charges Total Direct Minutes: 45mins Total Treatment Time: 45mins Procedures billed for this date of service:: EX3 Assessment: Patient progressing with strengthening, but will need to increase strength of active abduction at mid range. Patient Education: Home Exercise Program Patient demonstrates compliance with HEP?: Yes Short Term Goals Goal #1: Patient to demo full active left shoulder flexion. Goal to be met by: 02/09/17 (Goal updated 01/29/17) Progress towards Goal:: Met Goal #2: Patient to demo full active left shoulder abduction. Goal to be met by: 02/09/17 (Goal updated 01/29/17) Progress towards Goal:: Met Goal #3: Patient able to tolerate PROM with minimal reports of pain. Goal to be met by: 11/03/16 (100%) Progress towards Goal:: Met Goal #4: Pt to demonstrate good postural awareness. Goal to be met by: 11/03/16 (100%) Progress towards Goal:: Met Research Analyst Goals Goal #1: Pt knows HEP and to continue exercises after D/C from therapy. Goal to be met by: 03/23/17 Progress towards goal: Progressing Goal #2: Score on UE functional scale improved to < 20% impairment. Goal to be met by: 03/23/17 (50%) Progress towards goal: Progressing Goal #3: Pt to use left UE for all selfcare, ADL's, and functional reaching w/o pain Goal to be met by: 03/23/17 Progress towards goal: Progressing Goal #4: Pt able to return to work with minimal limitations. Goal to be met by: 03/23/17 Progress towards goal: No Change Plan PLAN OF CARE EXPIRES ON:: 03/23/17 ORDER # VISITS AND/OR THROUGH DATE: 03/23/17 PLAN: Progress Exercises (Continue to progress strengthening, preparing for return to full work duty.)
--- NOTE | 2017-03-08 09:27 | RS.OPPTDN ---
Subjective Date of Note: 03/08/17 Visit #: 40 Date of Evaluation: 10/20/16 Payer Source: Workman's Comp Treatment Diagnosis: Left shoulder pain, left shoulder stiffness, s/p RTC repair Current Subjective/complaints:: Patient reports weakness with left shoulder abduction is slowly improving. States he feels shoulder strength is improving and feel he will be able to return to work. Pain Assessment - Pain Description Pain Location: L shoulder/scapula Current Pain Intensity: soreness left shoulder joint with resistive exercise Interventions - Exercise/Activities/Manual Therapy Exercises/Activities: [id number]. Increased to 8# wand for chest press and shoulder flexion, multiple reps. Green theraband for bilateral shoulder ER, and overhead shoulder abd and add, multiple reps. Increased to blue theraband left shoulder flexion, extension, abduction and adduction, all below shoulder height. Green theraband for bilateral scapular retraction. AROM and AAROM into left shoulder flexion, scaption, and abduction, in short range and in full range , multipe sets of 5reps. Resistive short range flexion and abduction with 1# and 2# dumbells, 5rep sets. 2# to the left wrist basketball shooting. Overhead shelf reaching 3# weight. Cable pulleys increased to 40# for bilateral scapular retraction and short range bilateral shoulder extension. Left shoulder flex, ext , add, and abd at low level, increased to 10# cable sohan 2s/10reps each. 3# cuff weight to left UE with large ball on the wall overhead. Shelf reaching with 3# weight. Cuff series with 8# dumbell, 5 directions. Additional end range stretching and isometrics with left UE overhead. Ended with 8# dumbell for cuff series. Total minutes of Exercise: 42mins Manual Therapy: NA HOME EXERCISE PROGRAM: pendulum, gentle scapula retraction, squeeze ball, cervical lateral flexion stretching. Wand for shoulder flexion and ER in supine and to shoulder height in sitting. Green theraband for scapular retraction. Red and green theraband for short range bilateral shoulder ER. Blue theraband left shoulder x4 direction at low level. - Charges Total Direct Minutes: 42mins Total Treatment Time: 44mins Procedures billed for this date of service:: EX3 Assessment: Patient progressing with overhead reaching and with active lefft shoulder abduction strength. Patient Education: Home Exercise Program Patient demonstrates compliance with HEP?: Yes Short Term Goals Goal #1: Patient to demo full active left shoulder flexion. Goal to be met by: 02/09/17 (Goal updated 01/29/17) Progress towards Goal:: Met Goal #2: Patient to demo full active left shoulder abduction. Goal to be met by: 02/09/17 (Goal updated 01/29/17) Progress towards Goal:: Met Goal #3: Patient able to tolerate PROM with minimal reports of pain. Goal to be met by: 11/03/16 (100%) Progress towards Goal:: Met Goal #4: Pt to demonstrate good postural awareness. 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 Goal to be met by: 03/23/17 Progress towards goal: Progressing Goal #2: Score on UE functional scale improved to < 20% impairment. Goal to be met by: 03/23/17 (50%) Progress towards goal: Progressing Goal #3: Pt to use left UE for all selfcare, ADL's, and functional reaching w/o pain Goal to be met by: 03/23/17 Progress towards goal: Progressing Goal #4: Pt able to return to work with minimal limitations. Goal to be met by: 03/23/17 Progress towards goal: No Change Plan PLAN OF CARE EXPIRES ON:: 03/23/17 ORDER # VISITS AND/OR THROUGH DATE: 03/23/17 PLAN: Progress Exercises
== END 2017-03-10 ==
PROVIDERS: ATTEND Orthopaedic Surgery Sports Medicine
DX: M25.512 Pain in left shoulder (principal); Z98.890 Other specified postprocedural states

== ENCOUNTER → 2017-04-25 | Outpatient (REF) ==
--- NOTE | 2017-04-25 09:26 | DI ---
EXAM: PA and lateral views of the chest HISTORY: Pre-employment screening COMPARISON: Chest x-ray 05/23/2016 FINDINGS: The cardiomediastinal silhouette is normal. There is no pneumothorax or pleural effusion. There is no consolidation, nodule or mass. The osseous structures are unremarkable. IMPRESSION: No acute cardiopulmonary process
== END ==
LOC: RAD 08:51
DX: Z02.89 Encounter for other administrative examinations (principal)

== ENCOUNTER 2017-12-06 14:00 | Outpatient (RCR) ==
--- NOTE | 2017-12-04 13:43 | RS.OPPTEV2 ---
Date of Note: 12/04/17 Visit #: 1 Date of Evaluation: 12/04/17 Payer Source: Workman's Comp Surgery Performed?: Yes Procedure Performed: menisectomy L knee Date of Procedure: 10/30/17 Treatment Diagnosis: L meniscus injury History of Condition/Mechanism of Injury:: pt states he injured L knee while at work on 08/07/17. pt underwent L partial menisectomy on 10/30/17 Prior Level of Function.....Patient was independent with: Work/Vocation, Caregiving, Ambulation/Mobility, Community Integration/Access Functional Limitations: Standing, Bending, Squatting, Ambulation Current Subjective/complaints:: pt states he is ready to start therapy to improve strength in L knee. pt states he worked at [employer] when he injured his knee. Treatment Side (optional): Left Medical History Medical History: Hypertension, Diabetes Surgical History Comments:: shld sx x 2. hernia sx, ear sx. Smoking Status: Current some day smoker Hx Home Medications: pt did not bring med list Patient's Goals: goal is to return to golfing and woodworking Pain Assessment - Pain Description Pain Location: L knee Pain Description: Aching Current Pain Intensity: 5/10 Other Comments regarding Pain:: pain increases with amb. Functional Outcome Measure LE Functional Scale: 57 (29%) - G Codes & Severity Modifier G Codes & Modifier: n/a Source of G Code score: n/a Observation - Observation Inspection: min edema L knee Posture: Forward Head, Rounded Shoulders Girth Measurement Lower: L knee 39 cm R knee 37cm Gait - Gait Pattern General Gait Pattern Observation: No Deviations/Normal General Range of Motion: BUE WFL's. RLE WFL's. LLE WFL's Muscle Strength: BUE shld flex 4+/5, elbow flex/ext 5/5. RLE 5/5. LLE hip flex 4+/5, ankle 4+/5 Knee ROM: Right WFL's Knee Muscle Strength: Right WFL's - Left Knee ROM Left Knee Extension: -5 Left Knee Flexion: 110 (AROM) Knee ROM Limitations: Soft Tissue Tightness, Pain - Right Knee Strength Right Knee Extension: 4- Good- Right Knee Flexion: 4 Good - Special Tests Patella Apprehension Test: Negative Left Patella J-sign: Negative Left Palpation Palpation Findings: Tenderness (over incisions L knee) Sensation - Sensation Right Upper Extremity: Intact/Normal Left Upper Extremity: Intact/Normal Right Lower Extremity: Intact/Normal Left Lower Extremity: Intact/Normal Balance - Sitting Balance Static Sitting Balance: Normal Dynamic Sitting Balance: Normal - Standing Balance Static Standing Balance: Good Dynamic Standing Balance: Good - Heat/Cryotherapy Treatment: Cryotherapy (L knee) Interventions - Exercise/Activities/Manual Therapy Exercises/Activities: pt performed QS with pillow squeeze, LLE LAQ with 1 1/2lb weight, Lhip flex with 1 1/2 lb weight, SAQ with 1 1/2 lb weight 2 sets of 10 reps. pt performed 1 set of 10 reps of forward and side lunges, as well as leg press Manual Therapy: NA HOME EXERCISE PROGRAM: pt given written HEP including quad sets with pillow squeeze, LAQ with green t band, hamstring sets, standing terminal ext, standing heel to buttock, SAQ - Charges Timed Code Treatment Minutes: 46 Total Treatment Time: 57 Procedures billed for this date of service:: eval low, ex, cp EVALUATION COMPLEXITY LEVEL EVALUATION COMPLEXITY LEVEL: HISTORY: Low (HTN, DM, L meniscus injury), EXAM OF BODY SYSTEMS: Medium (strength, ROM, balance, pain, edema), CLINICAL PRESENTATION: Medium (evolving), CLINICAL DECISION MAKING: Low Assessment Assessment: pt presents s/p L meniscis repair with pain, edema, decreased strength LLE. Feel pt would benefit from skilled PT for therex for strengthening , ROM, balance to improve functional mobility Patient Education: Home Exercise Program, Education of Plan of Care Rehab Potential: Good Short Term Goals Goal #1: Improve L knee ext 0 Goal to be met by: 12/14/17 Goal #2: Edema decreased L equal to RLE Goal to be met by: 12/14/17 Goal #3: pt independent with initial HEP Goal to be met by: 12/14/17 (100%) Goal #4: pt able to amb from car to dept with decreased pain. 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 Plan - Treatment to be Provided Procedures: Therapeutic Exercises, Therapeutic Activity, Manual Therapy, Patient Education Modalities: Electrical Stimulation, Ultrasound/Phonophoresis, Cryotherapy, Hot Packs - Treatment Plan Frequency: 2 X week Duration: 3 weeks ORDER # VISITS AND/OR THROUGH DATE: 12/21/17 - Treatment Code (1) Left knee pain Code(s): M25.562 - PAIN IN LEFT KNEE (3) S/P lateral meniscus repair of left knee Code(s): Z98.890 - OTHER SPECIFIED POSTPROCEDURAL STATES
--- NOTE | 2017-12-06 16:19 | RS.OPPTDN ---
Subjective Date of Note: 12/06/17 Visit #: 2 Date of Evaluation: 12/04/17 Payer Source: Workman's Comp Treatment Diagnosis: L meniscus injury Current Subjective/complaints:: Reports increased knee pain today due to increased walking. Pain Assessment - Pain Description Pain Location: Left knee joint Pain Description: Dull, Aching Current Pain Intensity: 5/10 - Heat/Cryotherapy Treatment: Cryotherapy ([id number] to the left knee prior to EX. Patient in supine. ) Interventions - Exercise/Activities/Manual Therapy Exercises/Activities: Began with hamstring stretch and passive knee flexion. QS , isometric hip add, isometric ankle inversion. SAQ with 2#, SLR, 2s/10reps each. Green theraband for resistive ankle df, ham curl, hip add, and hip abd, 2s /10reps each. Leg press 60#, 25reps slow pace. Stationary bike 4mins forward and retro. Forward and side lunges. Total minutes of Exercise: 40mins Manual Therapy: NA HOME EXERCISE PROGRAM: pt given written HEP including quad sets with pillow squeeze, LAQ with green t band, hamstring sets, standing terminal ext, standing heel to buttock, SAQ - Charges Timed Code Treatment Minutes: 40mins Total Treatment Time: 52mins Procedures billed for this date of service:: CP, EX3 Assessment: Patient tolerates strengthening exercises well. Patient Education: Body/Joint mechanics, Home Exercise Program Patient demonstrates compliance with HEP?: Yes Short Term Goals Goal #1: Improve L knee ext 0 Goal to be met by: 12/14/17 Progress towards Goal:: Met Goal #2: Edema decreased L equal to RLE Goal to be met by: 12/14/17 Progress towards Goal:: Progressing Goal #3: pt independent with initial HEP Goal to be met by: 12/14/17 (100%) Progress towards Goal:: Progressing Goal #4: pt able to amb from car to dept with decreased pain. 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 Plan PLAN OF CARE EXPIRES ON:: 12/21/17 ORDER # VISITS AND/OR THROUGH DATE: 12/21/17 PLAN: Progress strengthening.
== END 2017-12-08 23:59 ==
PROVIDERS: ATTEND Neuromusculoskeletal Medicine, Sports Medicine
DX: M25.562 Pain in left knee (principal); Z98.890 Other specified postprocedural states

== ENCOUNTER 2017-12-20 14:00 | Outpatient (RCR) ==
--- NOTE | 2017-12-11 16:22 | RS.OPPTDN ---
Subjective Date of Note: 12/11/17 Visit #: 3 Date of Evaluation: 12/04/17 Payer Source: Workman's Comp Treatment Diagnosis: L meniscus injury Current Subjective/complaints:: Patient reports having a flair-up of sciatica following exercise session last week. States he is having muscle cramps in his back today. States left knee has little to no discomfort and is walking without difficulty. Pain Assessment - Pain Description Pain Location: Left knee Pain Description: Tightness Current Pain Intensity: mild - Heat/Cryotherapy Treatment: Cryotherapy ([id number] to the left knee following ) Interventions - Exercise/Activities/Manual Therapy Exercises/Activities: Began with hamstring stretch, heel cord stretch, and passive knee flexion. QS, isometric hip add, isometric ankle inversion. SAQ increased to 4#, SLR 1 1/2#, 2s/10reps each. Green theraband for resistive ankle df, ham curl, hip add, and hip abd, 2s/10reps each. Ended with additional stretching. Total minutes of Exercise: 24mins Manual Therapy: NA HOME EXERCISE PROGRAM: pt given written HEP including quad sets with pillow squeeze, LAQ with green t band, hamstring sets, standing terminal ext, standing heel to buttock, SAQ - Charges Timed Code Treatment Minutes: 24mins Total Treatment Time: 39mins Procedures billed for this date of service:: EX2, CP Assessment: Increased resistance with PRE's but did not progress on weight machines due to muscle spasms in back today. Patient Education: Body/Joint mechanics, Home Exercise Program, Activity Modification Patient demonstrates compliance with HEP?: Yes Short Term Goals Goal #1: Improve L knee ext 0 Goal to be met by: 12/14/17 Progress towards Goal:: Met Goal #2: Edema decreased L equal to RLE Goal to be met by: 12/14/17 Progress towards Goal:: Progressing Goal #3: pt independent with initial HEP Goal to be met by: 12/14/17 (100%) Progress towards Goal:: Progressing Goal #4: pt able to amb from car to dept with decreased pain. Goal to be met by: 12/14/17 Penitentiary Goals Goal #1: pt report ability to perform household activities without pain Goal to be met by: 12/21/17 Goal #2: Improve LE functional scale to >70 Goal to be met by: 12/21/17 Goal #3: pt improve LLE strength 4+/5 Goal to be met by: 12/21/17 (100%) Goal #4: . Plan PLAN OF CARE EXPIRES ON:: 12/21/17 ORDER # VISITS AND/OR THROUGH DATE: 12/21/17 PLAN: Continue to progress strengthening and begin Bi[employer] training when tolerable.
--- NOTE | 2017-12-13 16:08 | RS.OPPTDN ---
Subjective Date of Note: 12/13/17 Visit #: 4 Date of Evaluation: 12/04/17 Payer Source: Workman's Comp Treatment Diagnosis: L meniscus injury Current Subjective/complaints:: Patient reports consistent improvement in strength and stability of the left knee. During [employer] patient reports cramps in the distal hamstrings. - Heat/Cryotherapy Treatment: Cryotherapy ([id number] to the left distal quads and popliteal surface of the knee to reduce muscle cramps. ) Interventions - Exercise/Activities/Manual Therapy Exercises/Activities: Began with stationary bike x5mins. Began training on [employer] with Isometrics at angles of 95, 90, 70, and 60 degrees flexion, sets of 5reps. Started Isokinetic training at 60 and 75deg/sec settings, but stopped due to cramping of the left hamstrings. In supine, assisted hamstring stretch, heel cord stretch, and passive knee flexion. QS, isometric hip add, isometric ankle inversion, SLR and SLR/VMO. Ended with additional stretching. Total minutes of Exercise: 25mins Manual Therapy: NA HOME EXERCISE PROGRAM: pt given written HEP including quad sets with pillow squeeze, LAQ with green t band, hamstring sets, standing terminal ext, standing heel to buttock, SAQ - Charges Timed Code Treatment Minutes: 25mins Total Treatment Time: 40mins Procedures billed for this date of service:: EX2, CP Assessment: Attempted to progress strengthening today but limited due to left hamstring cramps. Patient responded well to stretching. Patient Education: Education of diagnosis, Body/Joint mechanics, Home Exercise Program, Activity Modification Patient demonstrates compliance with HEP?: Yes Short Term Goals Goal #1: Improve L knee ext 0 Goal to be met by: 12/14/17 Progress towards Goal:: Met Goal #2: Edema decreased L equal to RLE Goal to be met by: 12/14/17 Progress towards Goal:: Met Goal #3: pt independent with initial HEP Goal to be met by: 12/14/17 (100%) Progress towards Goal:: Met Goal #4: pt able to amb from car to dept with decreased pain. Goal to be met by: 12/14/17 Progress towards Goal:: Met Senior Care Goals Goal #1: pt report ability to perform household activities without pain Goal to be met by: 12/21/17 Progress towards goal: Progressing Goal #2: Improve LE functional scale to >70 Goal to be met by: 12/21/17 Progress towards goal: Progressing Goal #3: pt improve LLE strength 4+/5 Goal to be met by: 12/21/17 (100%) Progress towards goal: Progressing Goal #4: . Plan PLAN OF CARE EXPIRES ON:: 12/21/17 ORDER # VISITS AND/OR THROUGH DATE: 12/21/17 PLAN: Continue strengthening of the left LE to return patient to PLOF.
--- NOTE | 2017-12-18 15:26 | RS.OPPTDN ---
Subjective Date of Note: 12/18/17 Visit #: 5 Date of Evaluation: 12/04/17 Payer Source: Workman's Comp Treatment Diagnosis: L meniscus injury Current Subjective/complaints:: Patient reports left knee strength seems to be improving. He continues to have difficulty with cramps in the left hamstrings. Interventions - Exercise/Activities/Manual Therapy Exercises/Activities: Stationary bike x5mins. Biodex for Isometric training at angles of 95, 90, 70, and 60 degrees flexion, 2sets/5reps. of each of the 4 angles. Isokinetic training 5reps each of 60, 75, 90, and 110deg/sec settings, with breaks due to to cramping of the left hamstrings. In supine, assisted hamstring stretch, heel cord stretch, and passive knee flexion. QS, isometric hip add, isometric ankle inversion. Added 3# to SLR and SLR/VMO, 3s/10reps each. Ended with additional stretching of hamstrings. Total minutes of Exercise: 40mins Manual Therapy: NA HOME EXERCISE PROGRAM: pt given written HEP including quad sets with pillow squeeze, LAQ with green t band, hamstring sets, standing terminal ext, standing heel to buttock, SAQ - Objective Findings Observations,measurements,etc.: Demos an average 135ft# force with left quads, but around 50-52ft# with hamstrings. - Charges Timed Code Treatment Minutes: 40mins Total Treatment Time: 42mins Procedures billed for this date of service:: EX3 Assessment: Patient demos increase in quad strength with Biodex training, but needs to increase hamstring averages to balance left knee strength. Patient Education: Education of diagnosis, Body/Joint mechanics, Home Exercise Program Patient demonstrates compliance with HEP?: Yes Short Term Goals Goal #1: Improve L knee ext 0 Goal to be met by: 12/14/17 Progress towards Goal:: Met Goal #2: Edema decreased L equal to RLE Goal to be met by: 12/14/17 Progress towards Goal:: Met Goal #3: pt independent with initial HEP Goal to be met by: 12/14/17 (100%) Progress towards Goal:: Met Goal #4: pt able to amb from car to dept with decreased pain. 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 Plan PLAN OF CARE EXPIRES ON:: 12/21/17 ORDER # VISITS AND/OR THROUGH DATE: 12/21/17 PLAN: Continue this week to increase balanced strength of the left LE to return patient to PLOF.
--- NOTE | 2017-12-20 15:39 | RS.OPPTDN ---
Subjective Date of Note: 12/20/17 Visit #: 6 Date of Evaluation: 12/04/17 Payer Source: Workman's Comp Treatment Diagnosis: L meniscus injury Current Subjective/complaints:: Patient reports he has good strength in the left knee. He does notice an occasional pop in the left knee joint with resistive exercise. Reports being able to play golf and perofrm light activities without difficulty. Interventions - Exercise/Activities/Manual Therapy Exercises/Activities: In supine, assisted hamstring stretch, heel cord stretch, and passive knee flexion. QS, isometric hip add, isometric ankle inversion. Added 3# to SLR and SLR/VMO, 3s/10reps each. Green theraband for ankle df, inv, and eversion. Red theraband for hip abd and hip add, 2s/10reps each. Green theraband for ham curl. Ended with additional stretching of hamstrings. Biodex for Isometric training at angles of 95, 90, 70, and 60 degrees flexion, 2sets/ 5reps of each of the 4 angles. Isokinetic training 5reps each of 45, 60, 75, 90 , and 110deg/sec settings. Bike x5mins alt forward and retro revolution. Total minutes of Exercise: 44mins Manual Therapy: NA HOME EXERCISE PROGRAM: pt given written HEP including quad sets with pillow squeeze, LAQ with green t band, hamstring sets, standing terminal ext, standing heel to buttock, SAQ - Objective Findings Observations,measurements,etc.: Full AROM of the left knee joint. Left quad 4+/ 5 MMT and left hamstrings 5/5 MMT. Patient demos approx 158ft# of force with left quads and 70ft# with hamstrings. - Charges Timed Code Treatment Minutes: 44mins Total Treatment Time: 45mins Procedures billed for this date of service:: EX3 Assessment: Patient has progressed well with strengtheing. He will need to increase hamstring strength to improve strength ratio of the quads/hams in the left LE. Patient Education: Body/Joint mechanics, Home Exercise Program, Activity Modification Patient demonstrates compliance with HEP?: Yes Short Term Goals Goal #1: Improve L knee ext 0 Goal to be met by: 12/14/17 Progress towards Goal:: Met Goal #2: Edema decreased L equal to RLE Goal to be met by: 12/14/17 Progress towards Goal:: Met Goal #3: pt independent with initial HEP Goal to be met by: 12/14/17 (100%) Progress towards Goal:: Met Goal #4: pt able to amb from car to dept with decreased pain. Goal to be met by: 12/14/17 Progress towards Goal:: Met Mid Level Developer Goals Goal #1: pt report ability to perform household activities without pain Goal to be met by: 12/21/17 Progress towards goal: Met Goal #2: Improve LE functional scale to >70 Goal to be met by: 12/21/17 Progress towards goal: Partially Met Goal #3: pt improve LLE strength 4+/5 Goal to be met by: 12/21/17 Progress towards goal: Met Goal #4: . Plan PLAN OF CARE EXPIRES ON:: 12/21/17 ORDER # VISITS AND/OR THROUGH DATE: 12/21/17 PLAN: Plan for discharge if no continuation orders with follow-up appointment on 01-02-18.
--- NOTE | 2018-01-01 09:31 | RS.QUICKDC ---
Discharge from PT Date of Discharge: 01/01/18 Number of Visits: 6 Reason for Discharge: Patient attended 6 sessions per POC and approval. Patient progressed and reported no pain with exercise and daily activities. the patient has met 6 of 7 treatment goals and will continue HEP as instructed. Discharge at this time.
== END 2018-01-08 23:59 ==
PROVIDERS: ATTEND Neuromusculoskeletal Medicine, Sports Medicine
DX: M25.562 Pain in left knee (principal); Z98.890 Other specified postprocedural states

== ENCOUNTER 2018-06-10 08:00 | Outpatient (RCR) | END 2018-06-10 23:59 | PROVIDERS: ATTEND Neuromusculoskeletal Medicine, Sports Medicine | DX: M75.22 Bicipital tendinitis, left shoulder (principal); M25.512 Pain in left shoulder; M62.81 Muscle weakness (generalized); Z98.890 Other specified postprocedural states ==

== ENCOUNTER 2018-07-09 08:00 | Outpatient (RCR) ==
--- NOTE | 2018-06-14 09:24 | RS.OPPTDN ---
Subjective Date of Note: 06/14/18 Visit #: 12 Number of visits approved by Insurance: 12 Date of Evaluation: 05/08/18 Payer Source: Workman's Comp Treatment Diagnosis: Left shoulder weakness, pain, s/p surgery Current Subjective/complaints:: Patient reports soreness at biceps tendon, but progression of light daily activities. States he has difficulty with active abduction above shoulder height. Reports muscle cramps in the left anterior shoulder and biceps has nearly resolved, with only 4 episodes approximately. Reports he is cautious with daily activities that require lifting. Pain Assessment - Pain Description Pain Location: left shoulder, distal biceps Pain Description: Tightness Pain Description: soreness Current Pain Intensity: mild Interventions - Exercise/Activities/Manual Therapy Exercises/Activities: In supine, PROM and AAROM to the left shoulder. Isometrics right shoulder all directions. Increased to green tband for resisted left shoulder extension. Red theraband for short range left shoulder ext, horz add. Red theraband for bilateral shoulder ER. 4# dumbell for serratus punch. 2# dumbells for left shoulder flexion, scaption, and IR/ER. Overhead ball toss with 1# cuff weight to the left wrist. Sitting, green theraband scap retraction 2s/10reps. AROM into flex, scap, and abd, with eccentric contractions back to rest position. 1# dumbell for left shoulder flexion and abduction to shoulder height, 4s/5reps. 2# dumbell for left shoulder flexion to shoulder height. Holds light ball with left hand with 1 1/2# to left wrist and performs flex, scap, and abd, 3s/5reps each. Standing overhead ball toss and chest passing. Cuff series with 2#. Green theraband for resisted shoulder x4 directions. Total minutes of Exercise: 38mins Manual Therapy: x5mins Patient in sitting, soft tissue massage left biceps and left upper traps. Total minutes of Manual Therapy: 5mins HOME EXERCISE PROGRAM: Patient instructed in Pendulum exercise, AAROM into flexion in painfree range, scapular retraction without discomfort. Isometrics, AROM, ball on the wall. Green theraband scap retraction. Cuff series with light weight. - Objective Findings Observations,measurements,etc.: Left shoulder active flexion in supine 180 degrees and ER to 64 degrees. Left shoulder actve flexion in standing 164 degrees, abduction 139 degrees. Discomfort reported with active abduction against gravity. - Charges Timed Code Treatment Minutes: 43mins Total Treatment Time: 43mins Procedures billed for this date of service:: EX3 Assessment: Patient has progressed well with PROM and AROM of the left shoulder. He will need to continue strengthening to return to prior level of function. Patient Education: Home Exercise Program, Home Safety, Activity Modification Patient demonstrates compliance with HEP?: Yes Short Term Goals Goal #1: Pt independent and compliant with HEP. Goal to be met by: 05/22/18 Progress towards Goal:: Met Goal #2: Pt to demonstrate good postural awareness. Goal to be met by: 05/22/18 Progress towards Goal:: Met Goal #3: Pt able to perform all activities of Moderate Protection Phase of protocol. Goal to be met by: 05/22/18 Progress towards Goal:: Met Goal #4: Left shoulder strength 4-/5 in neutral. Goal to be met by: 05/22/18 Progress towards Goal:: Progressing Mcfp Goals Goal #1: Pt knows HEP and to continue ex's to maintain functional level at D/C. Goal to be met by: 06/22/18 Progress towards goal: Partially Met Goal #2: Score on UE functional scale improved to 25% impairment. Goal to be met by: 06/22/18 Progress towards goal: Progressing Goal #3: Left UE AROM WFL's to perform selfcare and light ADL's without difficulty. Goal to be met by: 06/22/18 Progress towards goal: Partially Met Goal #4: Pt able to sleep through night without interruption from left shoulder pain Goal to be met by: 06/22/18 Progress towards goal: Partially Met Plan Dates of Geriatric Physician Goals: 06/22/18 Expiration date of current Insurance Approval:: 06/22/18 PLAN: Patient to return to physician for a follow-up. Continuation orders to progress strengthening are anticipated.
--- NOTE | 2018-06-27 14:23 | RS.OPPTDN ---
Subjective Date of Note: 06/27/18 Visit #: 13 Number of visits approved by Insurance: 24 Date of Evaluation: 05/08/18 Payer Source: Workman's Comp Treatment Diagnosis: Left shoulder weakness, pain, s/p surgery Current Subjective/complaints:: Patient reports his surgeon was very please with his progress and has ordered continued progression of strengthening. Pain Assessment - Pain Description Pain Location: Left shoulder Current Pain Intensity: 0 at rest Other Comments regarding Pain:: Discomfort at end range and mild to mod "pinch" with left shoulder abduction. Interventions - Exercise/Activities/Manual Therapy Exercises/Activities: In supine, PROM and AAROM to the left shoulder. Isometrics right shoulder all directions. Red theraband for short range left shoulder ext, horz add, short flexion, and IR, ER. 4# dumbell for serratus punch. 2# dumbells for left shoulder flexion, scaption, and IR/ER. Overhead resisted pulldowns with wand and green theraband. Sitting, green theraband scap retraction 2s/10reps. AROM into flex, scap, and abd, with eccentric contractions back to rest position. 1# dumbell for left shoulder flexion to shoulder height, 3s/10reps. Standing overhead ball toss and chest passing with 1 1/2# cuff to left wrist. Cuff series increased to 4#. Total minutes of Exercise: 40mins Manual Therapy: x3mins Patient in sitting, soft tissue massage left biceps. Total minutes of Manual Therapy: 3mins HOME EXERCISE PROGRAM: Patient instructed in Pendulum exercise, AAROM into flexion in painfree range, scapular retraction without discomfort. Isometrics, AROM, ball on the wall. Green theraband scap retraction. Cuff series with light weight. - Charges Timed Code Treatment Minutes: 43mins Total Treatment Time: 43mins Procedures billed for this date of service:: EX3 Assessment: Patient to progress with strengthening, while being cautious of resistive shoulder abduction. Short Term Goals Goal #1: Pt independent and compliant with HEP. Goal to be met by: 05/22/18 Progress towards Goal:: Met Goal #2: Pt to demonstrate good postural awareness. Goal to be met by: 05/22/18 Progress towards Goal:: Met Goal #3: Pt able to perform all activities of Moderate Protection Phase of protocol. Goal to be met by: 05/22/18 Progress towards Goal:: Met Goal #4: Left shoulder strength 4-/5 in neutral. Goal to be met by: 05/22/18 Progress towards Goal:: Progressing Fine Hairer Goals Goal #1: Pt knows HEP and to continue ex's to maintain functional level at D/C. Goal to be met by: 08/02/18 Progress towards goal: Partially Met (Independent with basic HEP.) Goal #2: Score on UE functional scale improved to 25% impairment. Goal to be met by: 08/02/18 Progress towards goal: Progressing Goal #3: Left UE AROM WFL's to perform selfcare and light ADL's without difficulty. Goal to be met by: 08/02/18 Progress towards goal: Partially Met (Performs light ADL's at low level, but limited with overhead work.) Goal #4: Pt able to sleep through night without interruption from left shoulder pain Goal to be met by: 08/02/18 Progress towards goal: Partially Met (Some limitation of sleep due to left shoulder discomfort.) Plan Dates of Care Home Goals: 08/02/18 Expiration date of current Insurance Approval:: 08/02/18 PLAN: Continue progression of strengthening exercise to increase functional use of the left UE. Comments:: LTG dates extended 4 weeks to accomodate new physician orders.
--- NOTE | 2018-06-28 12:02 | RS.OPPTDN ---
Subjective Date of Note: 06/28/18 Visit #: 14 Number of visits approved by Insurance: 24 Date of Evaluation: 05/08/18 Payer Source: Workman's Comp Treatment Diagnosis: Left shoulder weakness, pain, s/p surgery Current Subjective/complaints:: Patient reports muscle spasms in the right biceps continue to decrease. States he only had one last night and no spams this morning. Pain Assessment - Pain Description Pain Location: left shoulder Current Pain Intensity: mild, mod with abduction Interventions - Exercise/Activities/Manual Therapy Exercises/Activities: In supine, PROM and AAROM to the left shoulder. Isometrics right shoulder all directions. Red theraband for short range left shoulder ext, horz add, short flexion, and IR, ER. Overhead resisted pulldowns with wand and green theraband. Sitting, green theraband scap retraction 2s/ 10reps. AROM into flex, scap, and abd, with eccentric contractions back to rest position. 2# dumbells for left shoulder flexion and abduction, alternating, 6s/ 5reps with breaks. Standing overhead ball toss and chest passing with 1 1/2# cuff to left wrist. Back to supine for PROM and focus on ER stretch. Total minutes of Exercise: 39mins Manual Therapy: x5mins Patient in sitting, soft tissue massage left biceps and upper trap trigger point. Total minutes of Manual Therapy: 5mins HOME EXERCISE PROGRAM: Patient instructed in Pendulum exercise, AAROM into flexion in painfree range, scapular retraction without discomfort. Isometrics, AROM, ball on the wall. Green theraband scap retraction. Cuff series with light weight. - Charges Timed Code Treatment Minutes: 44mins Total Treatment Time: 44mins Procedures billed for this date of service:: EX3 Assessment: Patient reporting progress with use of the left UE and a decrease in left biceps muscle spasms. Patient Education: Home Exercise Program Comments: Reviewed current HEP, no new additions. Patient demonstrates compliance with HEP?: Yes Short Term Goals Goal #1: Pt independent and compliant with HEP. Goal to be met by: 05/22/18 Progress towards Goal:: Met Goal #2: Pt to demonstrate good postural awareness. Goal to be met by: 05/22/18 Progress towards Goal:: Met Goal #3: Pt able to perform all activities of Moderate Protection Phase of protocol. Goal to be met by: 05/22/18 Progress towards Goal:: Met Goal #4: Left shoulder strength 4-/5 in neutral. Goal to be met by: 05/22/18 Progress towards Goal:: Progressing Retirement Goals Goal #1: Pt knows HEP and to continue ex's to maintain functional level at D/C. Goal to be met by: 08/02/18 Progress towards goal: Partially Met (Independent with basic HEP.) Goal #2: Score on UE functional scale improved to 25% impairment. Goal to be met by: 08/02/18 Progress towards goal: Progressing Goal #3: Left UE AROM WFL's to perform selfcare and light ADL's without difficulty. Goal to be met by: 08/02/18 Progress towards goal: Partially Met (Performs light ADL's at low level, but limited with overhead work.) Goal #4: Pt able to sleep through night without interruption from left shoulder pain Goal to be met by: 08/02/18 Progress towards goal: Partially Met (Some limitation of sleep due to left shoulder discomfort.) Plan Dates of Retirement Goals: 08/02/18 Expiration date of current Insurance Approval:: 08/02/18 PLAN: Progress AROM and strengthening, working patient back toward PLOF.
--- NOTE | 2018-07-02 09:46 | RS.OPPTDN ---
Subjective Date of Note: 07/02/18 Visit #: 15 Number of visits approved by Insurance: 24 total Date of Evaluation: 05/08/18 Payer Source: Workman's Comp Treatment Diagnosis: Left shoulder weakness, pain, s/p surgery Current Subjective/complaints:: Patient reports improvement in use of left UE with light ADL's. Reports no muscle spasms in the left biceps today. Pain Assessment - Pain Description Pain Location: Left shoulder, biceps Pain Description: Tightness Current Pain Intensity: 0 at rest Other Comments regarding Pain:: Mod with left shoulder abduction at shoulder height. Interventions - Exercise/Activities/Manual Therapy Exercises/Activities: In supine, PROM and AAROM to the left shoulder. Isometrics right shoulder all directions. Red theraband for short range left shoulder ext, horz add, short flexion, and IR, ER. Overhead resisted pulldowns and resisted overhead shoulder flexion with wand and red theraband. Holds Bodyblade overhead with shoulders at 90 degrees flexion, 4s/30sec. Ball toss with 1 1/2# cuff weight to the left wrist. Sitting, red theraband scap retraction 3s/10reps. AROM into flex, scap, and abd, with eccentric contractions back to rest position. 2# dumbells for left shoulder flexion and 1 # for abduction, alternating, 6s/5reps with breaks. Standing, red theraband for resisitve shoulder flex, ext, abd, and add at low level/short range. Total minutes of Exercise: 42mins Manual Therapy: x4mins Patient in sitting, soft tissue massage left biceps and upper trap trigger point. HOME EXERCISE PROGRAM: Patient instructed in Pendulum exercise, AAROM into flexion in painfree range, scapular retraction without discomfort. Isometrics, AROM, ball on the wall. Green theraband scap retraction. Cuff series with light weight. - Charges Timed Code Treatment Minutes: 46mins Total Treatment Time: 46mins Procedures billed for this date of service:: EX3 Assessment: Patient progressing well with strengthening and reaching activities. Patient Education: Home Exercise Program, Home Safety Patient demonstrates compliance with HEP?: Yes Short Term Goals Goal #1: Pt independent and compliant with HEP. Goal to be met by: 05/22/18 Progress towards Goal:: Met Goal #2: Pt to demonstrate good postural awareness. Goal to be met by: 05/22/18 Progress towards Goal:: Met Goal #3: Pt able to perform all activities of Moderate Protection Phase of protocol. Goal to be met by: 05/22/18 Progress towards Goal:: Met Goal #4: Left shoulder strength 4-/5 in neutral. Goal to be met by: 05/22/18 Progress towards Goal:: Progressing Coat Agent Goals Goal #1: Pt knows HEP and to continue ex's to maintain functional level at D/C. Goal to be met by: 08/02/18 Progress towards goal: Partially Met (Independent with basic HEP.) Goal #2: Score on UE functional scale improved to 25% impairment. Goal to be met by: 08/02/18 Progress towards goal: Progressing Goal #3: Left UE AROM WFL's to perform selfcare and light ADL's without difficulty. Goal to be met by: 08/02/18 Progress towards goal: Partially Met (Performs light ADL's at low level, but limited with overhead work.) Goal #4: Pt able to sleep through night without interruption from left shoulder pain Goal to be met by: 08/02/18 Progress towards goal: Partially Met (Some limitation of sleep due to left shoulder discomfort.) Plan Dates of Coat Agent Goals: 08/02/18 Expiration date of current Insurance Approval:: 08/02/18 PLAN: Progress with strengthening and ROM to increase functional activity level.
--- NOTE | 2018-07-04 11:18 | RS.OPPTDN ---
Subjective Date of Note: 07/04/18 Visit #: 16 Number of visits approved by Insurance: 24 Date of Evaluation: 05/08/18 Payer Source: Workman's Comp Treatment Diagnosis: Left shoulder weakness, pain, s/p surgery Current Subjective/complaints:: Patient reports no muscle spasms in the left biceps today. States he is reaching better, but his biggest problem is weakness. Pain Assessment - Pain Description Pain Location: left shoulder Current Pain Intensity: 0 Interventions - Exercise/Activities/Manual Therapy Exercises/Activities: In supine, PROM and AAROM to the left shoulder. Isometrics right shoulder all directions. Increased to green theraband for short range left shoulder ext, horz add. Red theraband for short flexion, IR, and ER. Increased overhead resisted pulldowns and resisted overhead shoulder flexion with wand to blue theraband. Holds ball overhead for bilateral shoulder flexion and press with 1 1/2# to the left wrist. Ball toss with 1 1/2# cuff weight to the left wrist. Sitting, increased to green theraband scap retraction 3s/10reps. AROM into flex, scap, and abd, with eccentric contractions back to rest position. 2# resisted left shoulder flexion and 1# for abduction, alternating, 6s/5reps with breaks. Patient performs active shoulder flexion to 180 degrees and abduction to 170 degrees, no resistiance. Cuff series with 4# dumbell. Standing, red theraband for resisitve shoulder flex, ext, abd, and add at low level/short range. Total minutes of Exercise: 40mins Manual Therapy: x4mins Patient in sitting, soft tissue massage left biceps and upper trap trigger point. Total minutes of Manual Therapy: 4mins HOME EXERCISE PROGRAM: Patient instructed in Pendulum exercise, AAROM into flexion in painfree range, scapular retraction without discomfort. Isometrics, AROM, ball on the wall. Green theraband scap retraction. Cuff series with light weight. - Charges Timed Code Treatment Minutes: 44mins Total Treatment Time: 44mins Procedures billed for this date of service:: EX3 Assessment: Patient making slow but steady progress with strengthening. We continue to be cautious with resistive left hsoulder abduction per physician instruction to patient. Patient Education: Home Exercise Program, Home Safety Patient demonstrates compliance with HEP?: Yes Short Term Goals Goal #1: Pt independent and compliant with HEP. Goal to be met by: 05/22/18 Progress towards Goal:: Met Goal #2: Pt to demonstrate good postural awareness. Goal to be met by: 05/22/18 Progress towards Goal:: Met Goal #3: Pt able to perform all activities of Moderate Protection Phase of protocol. Goal to be met by: 05/22/18 Progress towards Goal:: Met Goal #4: Left shoulder strength 4-/5 in neutral. Goal to be met by: 05/22/18 Progress towards Goal:: Progressing Line Controller Goals Goal #1: Pt knows HEP and to continue ex's to maintain functional level at D/C. Goal to be met by: 08/02/18 Progress towards goal: Partially Met (Independent with basic HEP.) Goal #2: Score on UE functional scale improved to 25% impairment. Goal to be met by: 08/02/18 Progress towards goal: Progressing Goal #3: Left UE AROM WFL's to perform selfcare and light ADL's without difficulty. Goal to be met by: 08/02/18 Progress towards goal: Partially Met (Performs light ADL's at low level, but limited with overhead work.) Goal #4: Pt able to sleep through night without interruption from left shoulder pain Goal to be met by: 08/02/18 Progress towards goal: Met Plan Dates of Line Controller Goals: 08/02/18 Expiration date of current Insurance Approval:: 08/02/18 PLAN: Continue progression of strengthening.
--- NOTE | 2018-07-09 10:09 | RS.OPPTDN ---
Subjective Date of Note: 07/09/18 Visit #: 17 Number of visits approved by Insurance: 24 Date of Evaluation: 05/08/18 Payer Source: Workman's Comp Treatment Diagnosis: Left shoulder weakness, pain, s/p surgery Current Subjective/complaints:: Patient reports doing much better with active reaching and with resistive exercise. C/c continues to be discomfort and weakness with active left shoulder abduction above 80 degrees. Pain Assessment - Pain Description Pain Location: left shoulder Pain Description: Aching Current Pain Intensity: mod discomfort with abduction above shoulder height Interventions - Exercise/Activities/Manual Therapy Exercises/Activities: In supine, PROM and AAROM to the left shoulder. Isometrics right shoulder all directions. Green theraband for short range left shoulder ext, horz add. Green theraband for short flexion, IR, and ER. 5# wand for overhead flexion and chest press. 1 1/2# cuff weight for left shoulder flexion and scaption. Sitting, increased to green theraband scap retraction 3s/ 10reps. AROM into flex, scap, and abd. Increased to 2 1/2# resisted left shoulder flexion and 1 1/2# for abduction, alternating, 6s/5reps with breaks. Total minutes of Exercise: 38mins Manual Therapy: x3mins Soft tissue massage left biceps. Total minutes of Manual Therapy: 3mins HOME EXERCISE PROGRAM: Patient instructed in Pendulum exercise, AAROM into flexion in painfree range, scapular retraction without discomfort. Isometrics, AROM, ball on the wall. Green theraband scap retraction. Cuff series with light weight. - Charges Timed Code Treatment Minutes: 41mins Total Treatment Time: 41mins Procedures billed for this date of service:: EX3 Assessment: Progressing with active and resisted left shoulder abduction. Patient demonstrates compliance with HEP?: Yes Short Term Goals Goal #1: Pt independent and compliant with HEP. Goal to be met by: 05/22/18 Progress towards Goal:: Met Goal #2: Pt to demonstrate good postural awareness. Goal to be met by: 05/22/18 Progress towards Goal:: Met Goal #3: Pt able to perform all activities of Moderate Protection Phase of protocol. Goal to be met by: 05/22/18 Progress towards Goal:: Met Goal #4: Left shoulder strength 4-/5 in neutral. 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 Goal to be met by: 08/02/18 Progress towards goal: Partially Met (Independent with basic HEP.) Goal #2: Score on UE functional scale improved to 25% impairment. Goal to be met by: 08/02/18 Progress towards goal: Progressing Goal #3: Left UE AROM WFL's to perform selfcare and light ADL's without difficulty. Goal to be met by: 08/02/18 Progress towards goal: Partially Met (Performs light ADL's at low level, but limited with overhead work.) Goal #4: Pt able to sleep through night without interruption from left shoulder pain Goal to be met by: 08/02/18 Progress towards goal: Met Plan Dates of Care Home Goals: 08/02/18 Expiration date of current Insurance Approval:: 08/02/18 PLAN: Progress with AROM and strengthening to increase functional activity level and return to PLOF.
== END 2018-07-11 23:59 ==
PROVIDERS: ATTEND Neuromusculoskeletal Medicine, Sports Medicine
DX: M75.102 Unspecified rotator cuff tear or rupture of left shoulder, not specified as traumatic (principal); M75.22 Bicipital tendinitis, left shoulder; M62.81 Muscle weakness (generalized); M25.512 Pain in left shoulder; Z98.890 Other specified postprocedural states

== ENCOUNTER 2018-07-31 09:00 | Outpatient (RCR) ==
--- NOTE | 2018-07-12 14:26 | RS.OPPTDN ---
Subjective Date of Note: 07/12/18 Visit #: 18 Number of visits approved by Insurance: 24 Date of Evaluation: 05/08/18 Payer Source: Workman's Comp Treatment Diagnosis: Left shoulder weakness, pain, s/p surgery Current Subjective/complaints:: Patient reports doing better with active reaching. Interventions - Exercise/Activities/Manual Therapy Exercises/Activities: In supine, PROM and AAROM to the left shoulder. Isometrics right shoulder all directions. Green theraband for short range left shoulder ext, horz add. Green theraband for short flexion, IR, and ER. 6# wand for overhead flexion and chest press, then wand for overhead pulldowns with blue theraband. 1 1/2# cuff weight for left shoulder flexion and scaption. Sitting, increased to blue theraband scap retraction 3s/10reps. Wand for overhead shoulder flexion. AROM into flex, scap, and abd. Increased to 2 1/2# resisted left shoulder flexion and 1 1/2# for abduction, alternating, 6s/5reps with breaks. Then 1 1/2# cuff weight for left shoulder flexion to approx 170 degrees, 3s/5reps. Total minutes of Exercise: 45mins Manual Therapy: x3mins Soft tissue massage left biceps. Total minutes of Manual Therapy: 3mins HOME EXERCISE PROGRAM: Patient instructed in Pendulum exercise, AAROM into flexion in painfree range, scapular retraction without discomfort. Isometrics, AROM, ball on the wall. Green theraband scap retraction. Cuff series with light weight. - Charges Timed Code Treatment Minutes: 48mins Total Treatment Time: 48mins Procedures billed for this date of service:: EX3 Assessment: Patient progressing with active and light resisted reaching activities. Patient demonstrates compliance with HEP?: Yes Short Term Goals Goal #1: Pt independent and compliant with HEP. Goal to be met by: 05/22/18 Progress towards Goal:: Met Goal #2: Pt to demonstrate good postural awareness. Goal to be met by: 05/22/18 Progress towards Goal:: Met Goal #3: Pt able to perform all activities of Moderate Protection Phase of protocol. Goal to be met by: 05/22/18 Progress towards Goal:: Met Goal #4: Left shoulder strength 4-/5 in neutral. Goal to be met by: 05/22/18 Progress towards Goal:: Progressing Shelter Goals Goal #1: Pt knows HEP and to continue ex's to maintain functional level at D/C. Goal to be met by: 08/02/18 Progress towards goal: Partially Met (Independent with basic HEP.) Goal #2: Score on UE functional scale improved to 25% impairment. Goal to be met by: 08/02/18 Progress towards goal: Progressing Goal #3: Left UE AROM WFL's to perform selfcare and light ADL's without difficulty. Goal to be met by: 08/02/18 Progress towards goal: Partially Met (Performs light ADL's at low level, but limited with overhead work.) Goal #4: Pt able to sleep through night without interruption from left shoulder pain Goal to be met by: 08/02/18 Progress towards goal: Met Plan Dates of Shelter Goals: 08/02/18 Expiration date of current Insurance Approval:: 08/02/18 PLAN: Progress with lifting and overheaad stretching as tolerated, working toward PLOF.
--- NOTE | 2018-07-16 09:39 | RS.OPPTDN ---
Subjective Date of Note: 07/16/18 Visit #: 19 Number of visits approved by Insurance: 24 Date of Evaluation: 05/08/18 Payer Source: Workman's Comp Treatment Diagnosis: Left shoulder weakness, pain, s/p surgery Current Subjective/complaints:: Patient reports he is doing much better this week. States he has only had minimal muscle spasms in the left biceps. States he has resumed a limited amount of golf, as instructed by physician. Interventions - Exercise/Activities/Manual Therapy Exercises/Activities: In supine, PROM and AAROM to the left shoulder. Isometrics right shoulder flex, ext, abd, and add with shoulder at 90 degrees. Isometric IR and ER at different degrees of abduction. Green theraband for short range left shoulder ext, horz add. Green theraband for short flexion, IR, and ER. Blue theraband resisted wand for overhead flexion, extension, and chest press. 2# for left shoulder flexion and scaption. Sitting, increased to blue theraband scap retraction 3s/10reps. Wand for overhead shoulder flexion. AROM into flex, scap, and abd. 2 1/2# resisted left shoulder flexion and 1 1/2 # for abduction, alternating, 4s/5reps with breaks. In standing, yellow theraband for overhead resisted flexion and extension, 2s/10reps each. 2# "shot- putt" throw and underhanded toss, 2s/10reps each. Increased to blue theraband for resisted left shoulder x4 direction, 2s/10reps. Total minutes of Exercise: 40mins Manual Therapy: x4mins Soft tissue massage left biceps and trigger point release to left upper trap. Total minutes of Manual Therapy: 4mins HOME EXERCISE PROGRAM: Patient instructed in Pendulum exercise, AAROM into flexion in painfree range, scapular retraction without discomfort. Isometrics, AROM, ball on the wall. Green theraband scap retraction. Cuff series with light weight. - Charges Timed Code Treatment Minutes: 44mins Total Treatment Time: 44mins Procedures billed for this date of service:: EX3 Assessment: Patient progressing well with overhead strengthening and with return to limited sports/recreational activities. Patient Education: Body/Joint mechanics, Home Exercise Program, Home Safety Comments: Discussion of safety with increased activity. Patient demonstrates compliance with HEP?: Yes Short Term Goals Goal #1: Pt independent and compliant with HEP. Goal to be met by: 05/22/18 Progress towards Goal:: Met Goal #2: Pt to demonstrate good postural awareness. Goal to be met by: 05/22/18 Progress towards Goal:: Met Goal #3: Pt able to perform all activities of Moderate Protection Phase of protocol. Goal to be met by: 05/22/18 Progress towards Goal:: Met Goal #4: Left shoulder strength 4-/5 in neutral. Goal to be met by: 05/22/18 Progress towards Goal:: Progressing Senior Living Goals Goal #1: Pt knows HEP and to continue ex's to maintain functional level at D/C. Goal to be met by: 08/02/18 Progress towards goal: Partially Met (Independent with basic HEP.) Goal #2: Score on UE functional scale improved to 25% impairment. Goal to be met by: 08/02/18 Progress towards goal: Progressing Goal #3: Left UE AROM WFL's to perform selfcare and light ADL's without difficulty. Goal to be met by: 08/02/18 Progress towards goal: Met Goal #4: Pt able to sleep through night without interruption from left shoulder pain Goal to be met by: 08/02/18 Progress towards goal: Met Plan Dates of Senior Living Goals: 08/02/18 Expiration date of current Insurance Approval:: 08/02/18 PLAN: Progress with all strengthening to return to PLOF.
--- NOTE | 2018-07-19 11:59 | RS.OPPTDN ---
Subjective Date of Note: 07/19/18 Visit #: 20 Number of visits approved by Insurance: 24 Date of Evaluation: 05/08/18 Payer Source: Workman's Comp Treatment Diagnosis: Left shoulder weakness, pain, s/p surgery Current Subjective/complaints:: Patient reports less soreness in the left shoulder and little to no muscle spasm in the biceps. Pain Assessment - Pain Description Pain Location: Left shoulder, biceps Pain Description: Tightness Current Pain Intensity: 0 Interventions - Exercise/Activities/Manual Therapy Exercises/Activities: In supine, PROM and AAROM to the left shoulder. Isometrics right shoulder flex, ext, abd, and add with shoulder at 90 degrees. Isometric IR and ER at different degrees of abduction. Green theraband for short range left shoulder ext, horz add. Green theraband for short flexion, IR, and ER. Blue theraband resisted wand for overhead flexion, extension, and chest press. Increased to 2 1/2# for left shoulder flexion and scaption. Sitting , 1 1/2# for flexion 90 to 170 degrees, 2 1/2# for flexion to 90 degrees, 1 1/2 # for abduction to 90 degrees, 4s/5reps each. Blue theraband scap retraction 3s/ 10reps. AROM into flex, scap, and abd. In standing, increased to red theraband for overhead resisted flexion and extension, 2s/10reps each. 2# "shot-putt" throw and underhanded toss, 2s/10reps each. Blue theraband for resisted left shoulder x4 direction, 2s/10reps. Total minutes of Exercise: 43mins Manual Therapy: x3mins Soft tissue massage left biceps and trigger point release to left upper trap. Total minutes of Manual Therapy: 3mins HOME EXERCISE PROGRAM: Patient instructed in Pendulum exercise, AAROM into flexion in painfree range, scapular retraction without discomfort. Isometrics, AROM, ball on the wall. Green theraband scap retraction. Cuff series with light weight. - Objective Findings Observations,measurements,etc.: Patient demos full active left shoulder flexion and abduction today. Left shoulder flexion now 3+/5 MMT, and abduction 3 to 3+/ 5 MMT. - Charges Timed Code Treatment Minutes: 46mins Total Treatment Time: 46mins Procedures billed for this date of service:: EX3 Assessment: Patient progressing well with AROM and strengthening. Patient Education: Home Exercise Program Patient demonstrates compliance with HEP?: Yes Short Term Goals Goal #1: Pt independent and compliant with HEP. Goal to be met by: 05/22/18 Progress towards Goal:: Met Goal #2: Pt to demonstrate good postural awareness. Goal to be met by: 05/22/18 Progress towards Goal:: Met Goal #3: Pt able to perform all activities of Moderate Protection Phase of protocol. Goal to be met by: 05/22/18 Progress towards Goal:: Met Goal #4: Left shoulder strength 4-/5 in neutral. Goal to be met by: 05/22/18 Progress towards Goal:: Progressing Half-Way Goals Goal #1: Pt knows HEP and to continue ex's to maintain functional level at D/C. Goal to be met by: 08/02/18 Progress towards goal: Partially Met (Independent with basic HEP.) Goal #2: Score on UE functional scale improved to 25% impairment. Goal to be met by: 08/02/18 Progress towards goal: Progressing Goal #3: Left UE AROM WFL's to perform selfcare and light ADL's without difficulty. Goal to be met by: 08/02/18 Progress towards goal: Met Goal #4: Pt able to sleep through night without interruption from left shoulder pain Goal to be met by: 08/02/18 Progress towards goal: Met Plan Dates of Half-Way Goals: 08/02/18 Expiration date of current Insurance Approval:: 08/02/18 PLAN: Progress with strengthening working toward PLOF.
--- NOTE | 2018-07-23 13:49 | RS.OPPTDN ---
Subjective Date of Note: 07/23/18 Visit #: 21 Number of visits approved by Insurance: 24 Date of Evaluation: 05/08/18 Payer Source: Workman's Comp Treatment Diagnosis: Left shoulder weakness, pain, s/p surgery Current Subjective/complaints:: Reports progress with strengthening and with daily activities at home. Pain Assessment - Pain Description Pain Location: left shoulder Current Pain Intensity: 0 Other Comments regarding Pain:: Occasional soreness with some activity. Interventions - Exercise/Activities/Manual Therapy Exercises/Activities: In supine, PROM and AAROM to the left shoulder. Isometrics right shoulder flex, ext, abd, and add with shoulder at 90 degrees flexion. Isometric IR and ER at 90 degrees shoulder abduction. Red theraband for full range left shoulder flex,ext, horz add, horz abd. Blue theraband resisted wand for overhead flexion, extension, and chest press. 7# wand for overhead flexion and chest press. Patient holds 2# during left shoulder flexion and scaption, then proprioception with left shoulder at 90 degrees flexion. Sitting, 2# for full flexion 2s/10reps and abduction 10reps. Blue theraband scap retraction 3s/10reps. AROM into flex, scap, and abd. In standing , 2# ball "shot putt" toss and underhand toss, multiple reps. Total minutes of Exercise: 40mins Manual Therapy: x2mins Soft tissue massage left biceps with gentle stretch. Total minutes of Manual Therapy: 2mins HOME EXERCISE PROGRAM: Patient instructed in Pendulum exercise, AAROM into flexion in painfree range, scapular retraction without discomfort. Isometrics, AROM, ball on the wall. Green theraband scap retraction. Cuff series with light weight. - Charges Timed Code Treatment Minutes: 42mins Total Treatment Time: 44mins Procedures billed for this date of service:: EX3 Assessment: Patient now demos full left shoulder flexion and abduction, and is increasing resistive work above shoulder height. Patient Education: Home Exercise Program Patient demonstrates compliance with HEP?: Yes Short Term Goals Goal #1: Pt independent and compliant with HEP. Goal to be met by: 05/22/18 Progress towards Goal:: Met Goal #2: Pt to demonstrate good postural awareness. Goal to be met by: 05/22/18 Progress towards Goal:: Met Goal #3: Pt able to perform all activities of Moderate Protection Phase of protocol. Goal to be met by: 05/22/18 Progress towards Goal:: Met Goal #4: Left shoulder strength 4-/5 in neutral. Goal to be met by: 05/22/18 Progress towards Goal:: Progressing Senior Care Goals Goal #1: Pt knows HEP and to continue ex's to maintain functional level at D/C. Goal to be met by: 08/02/18 Progress towards goal: Partially Met (Independent with basic HEP.) Goal #2: Score on UE functional scale improved to 25% impairment. Goal to be met by: 08/02/18 Progress towards goal: Progressing Goal #3: Left UE AROM WFL's to perform selfcare and light ADL's without difficulty. Goal to be met by: 08/02/18 Progress towards goal: Met Goal #4: Pt able to sleep through night without interruption from left shoulder pain Goal to be met by: 08/02/18 Progress towards goal: Met Plan Dates of Senior Care Goals: 08/02/18 Expiration date of current Insurance Approval:: 08/02/18 PLAN: Progress with strengthening, working toward PLOF.
--- NOTE | 2018-07-26 09:05 | RS.OPPTDN ---
Subjective Date of Note: 07/26/18 Visit #: 22 Number of visits approved by Insurance: 24 to date Date of Evaluation: 05/08/18 Payer Source: Workman's Comp Treatment Diagnosis: Left shoulder weakness, pain, s/p surgery Current Subjective/complaints:: Patient reports continued improvement in left UE strength and ability with ADL's. States left biceps occasionally cramps, especially with biceps contraction with elbow in flexed position. Interventions - Exercise/Activities/Manual Therapy Exercises/Activities: In supine, PROM and AAROM to the left shoulder. Isometrics right shoulder flex, ext, abd, and add with shoulder at 90 degrees flexion. Isometric IR and ER at 90 degrees shoulder abduction. Increased to green theraband for full range left shoulder flex,ext, horz add, horz abd. Blue theraband resisted wand for overhead flexion, extension, and chest press. 7 # wand for overhead flexion and chest press. 2# for left shoulder flexion, scaption, and proprioception with left shoulder at 90 degrees flexion. Sitting , 2# for full flexion 3s/10reps and abduction 2s/10reps. AROM into flex, scap, and abd. Overhead flexion and extension with red theraband. In standing, 2# ball "shot putt" toss and underhand toss, multiple reps. Ball on the wall. Blue theraband for left shoulder x4 directions. Total minutes of Exercise: 40mins Manual Therapy: x4mins Soft tissue massage left biceps with gentle stretch, and left trap trigger point release. Total minutes of Manual Therapy: 4mins HOME EXERCISE PROGRAM: Patient instructed in Pendulum exercise, AAROM into flexion in painfree range, scapular retraction without discomfort. Isometrics, AROM, ball on the wall. Green theraband scap retraction. Cuff series with light weight. - Charges Timed Code Treatment Minutes: 44mins Total Treatment Time: 44mins Procedures billed for this date of service:: EX3 Assessment: Patient progressing well with strengthening and with reports of improvement with ADL's. Patient demonstrates compliance with HEP?: Yes Short Term Goals Goal #1: Pt independent and compliant with HEP. Goal to be met by: 05/22/18 Progress towards Goal:: Met Goal #2: Pt to demonstrate good postural awareness. Goal to be met by: 05/22/18 Progress towards Goal:: Met Goal #3: Pt able to perform all activities of Moderate Protection Phase of protocol. Goal to be met by: 05/22/18 Progress towards Goal:: Met Goal #4: Left shoulder strength 4-/5 in neutral. 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 Goal to be met by: 08/02/18 Progress towards goal: Partially Met (Independent with basic HEP.) Goal #2: Score on UE functional scale improved to 25% impairment. Goal to be met by: 08/02/18 Progress towards goal: Progressing Goal #3: Left UE AROM WFL's to perform selfcare and light ADL's without difficulty. Goal to be met by: 08/02/18 Progress towards goal: Met Goal #4: Pt able to sleep through night without interruption from left shoulder pain Goal to be met by: 08/02/18 Progress towards goal: Met Plan Dates of Retirement Goals: 08/02/18 Expiration date of current Insurance Approval:: 08/02/18 PLAN: Continue progressing strengthening, toward PLOF.
--- NOTE | 2018-07-29 11:40 | RS.OPPTDN ---
Subjective Date of Note: 07/29/18 Visit #: 23 Number of visits approved by Insurance: 24 Date of Evaluation: 05/08/18 Payer Source: Workman's Comp Treatment Diagnosis: Left shoulder weakness, pain, s/p surgery Current Subjective/complaints:: Patient reports he is pleased with his left shoulder ROM. States he is doing more and seeing improvment with strengthening. Pain Assessment - Pain Description Pain Location: Left shoulder Pain Description: occaasional soreness Current Pain Intensity: 0/10 Other Comments regarding Pain:: Reports occasional mild cramp in the distal left biceps. Interventions - Exercise/Activities/Manual Therapy Exercises/Activities: In supine, PROM followed by isometrics all directions. Blue theraband for full range left shoulder flex,ext, horz add, horz abd. Blue theraband resisted wand for overhead flexion, extension, and chest press. 2# for left shoulder flexion, scaption, and proprioception with left shoulder at 90 degrees flexion. Sitting, increased to 3# for full flexion 3s/10reps and 2# abduction 2s/10reps. AROM into flex, scap, and abd. Overhead flexion and extension with red theraband. In standing, with 2# to left wrist, chest pass and overhead pass. Ball on the wall. Total minutes of Exercise: 43mins Manual Therapy: x4mins Soft tissue massage left biceps with gentle stretch, and left trap trigger point release. Total minutes of Manual Therapy: 4mins HOME EXERCISE PROGRAM: Patient instructed in Pendulum exercise, AAROM into flexion in painfree range, scapular retraction without discomfort. Isometrics, AROM, ball on the wall. Green theraband scap retraction. Cuff series with light weight. - Objective Findings Observations,measurements,etc.: Left shldr ext and add 4+/5, flex 4 to 4+/5, and abd 4-/5 MMT. Demos full left shoulder flexion and abduction. - Charges Timed Code Treatment Minutes: 47mins Total Treatment Time: 49mins Procedures billed for this date of service:: EX3 Assessment: Patient progressing with resistive work at and above shoulder height. Patient demonstrates compliance with HEP?: Yes Short Term Goals Goal #1: Pt independent and compliant with HEP. Goal to be met by: 05/22/18 Progress towards Goal:: Met Goal #2: Pt to demonstrate good postural awareness. Goal to be met by: 05/22/18 Progress towards Goal:: Met Goal #3: Pt able to perform all activities of Moderate Protection Phase of protocol. Goal to be met by: 05/22/18 Progress towards Goal:: Met Goal #4: Left shoulder strength 4-/5 in neutral. Goal to be met by: 05/22/18 Progress towards Goal:: Met (Left shldr ext and add 4+/5, flex 4 to 4+/5, and abd 4-/5 MMT.) [facility] Goals Goal #1: Pt knows HEP and to continue ex's to maintain functional level at D/C. Goal to be met by: 08/02/18 Progress towards goal: Met Goal #2: Score on UE functional scale improved to 25% impairment. Goal to be met by: 08/02/18 Progress towards goal: Progressing Comments: Will reassess next session in preparation for return to physician. Goal #3: Left UE AROM WFL's to perform selfcare and light ADL's without difficulty. Goal to be met by: 08/02/18 Progress towards goal: Met Goal #4: Pt able to sleep through night without interruption from left shoulder pain Goal to be met by: 08/02/18 Progress towards goal: Met Plan Dates of [facility] Goals: 08/02/18 Expiration date of current Insurance Approval:: 08/02/18 PLAN: Continue this week and prepare for follow up appointment with physician.
--- NOTE | 2018-07-31 09:48 | RS.OPPTDN ---
Subjective Date of Note: 07/31/18 Visit #: 24 Number of visits approved by Insurance: 24 Date of Evaluation: 05/08/18 Payer Source: Workman's Comp Treatment Diagnosis: Left shoulder weakness, pain, s/p surgery Current Subjective/complaints:: Patient reports he is pleased with his progress. States he has good ROM, but continues to have left distal biceps cramping with some activities. He reports the muscle cramping has decreased, but it continues a few times per week. States he has some difficulty with overhead activities, but this also continues to improve with strengthening. States he will continue HEP if discharged. Pain Assessment - Pain Description Pain Location: left shoulder Current Pain Intensity: 0/10 Other Comments regarding Pain:: Patient reports no pain, only occasional muscle cramping of the left biceps. Interventions - Exercise/Activities/Manual Therapy Exercises/Activities: In supine, PROM followed by isometrics all directions. Blue theraband for full range left shoulder flex,ext, horz add, horz abd. Blue theraband resisted wand for overhead flexion, extension, and chest press. 2# for left shoulder flexion, scaption, and proprioception with left shoulder at 90 degrees flexion. Sitting, 3# dumbell for full flexion 3s/10reps and 2# abduction 3s/10reps. Overhead "bseball throw" with 3#. AROM into flex, scap, and abd. In standing, with 2# to left wrist, chest pass and overhead pass. Ball on the wall. Reviewed and finalized all patient education and HEP. Patient has therabands for home use. Total minutes of Exercise: 30mins Manual Therapy: NA HOME EXERCISE PROGRAM: Patient instructed in Pendulum exercise, AAROM into flexion in painfree range, scapular retraction without discomfort. Isometrics, AROM, ball on the wall. Green theraband scap retraction. Cuff series with light weight. - Objective Findings Observations,measurements,etc.: Patient demos full active left shoulder flexion and abduction. MMT of left shoulder: flexion 4/5, abduction 4- to 4/5, extension 5/5, and adduction 4+/5. Left hand circuit court magistrate to 86#. - Charges Timed Code Treatment Minutes: 30mins Total Treatment Time: 33mins Procedures billed for this date of service:: EX2 Assessment: Patient has progressed well and met treatment goals. He continues to see improvement with use of left UE with ADL's. Patient will continue HEP following discharge. Patient Education: Home Exercise Program, Activity Modification, Education of Plan of Care Patient demonstrates compliance with HEP?: Yes Short Term Goals Goal #1: Pt independent and compliant with HEP. Goal to be met by: 05/22/18 Progress towards Goal:: Met Goal #2: Pt to demonstrate good postural awareness. Goal to be met by: 05/22/18 Progress towards Goal:: Met Goal #3: Pt able to perform all activities of Moderate Protection Phase of protocol. Goal to be met by: 05/22/18 Progress towards Goal:: Met Goal #4: Left shoulder strength 4-/5 in neutral. Goal to be met by: 05/22/18 Progress towards Goal:: Met Correction Goals Goal #1: Pt knows HEP and to continue ex's to maintain functional level at D/C. Goal to be met by: 08/02/18 Progress towards goal: Met Goal #2: Score on UE functional scale improved to 25% impairment. Goal to be met by: 08/02/18 Progress towards goal: Met Goal #3: Left UE AROM WFL's to perform selfcare and light ADL's without difficulty. Goal to be met by: 08/02/18 Progress towards goal: Met Goal #4: Pt able to sleep through night without interruption from left shoulder pain Goal to be met by: 08/02/18 Progress towards goal: Met Plan Dates of Correction Goals: 08/02/18 Expiration date of current Insurance Approval:: 08/02/18 PLAN: Discharge is anticipated as patient has completed all orders, POC, and met treatment goals at this time.
== END 2018-08-08 23:59 ==
PROVIDERS: ATTEND Neuromusculoskeletal Medicine, Sports Medicine
DX: M25.512 Pain in left shoulder (principal); Z98.890 Other specified postprocedural states

== ENCOUNTER 2018-08-27 08:00 | Outpatient (RCR) ==
--- NOTE | 2018-08-13 13:30 | RS.PTSUM ---
Progress Note/Summary Date of Note: 08/12/18 Date of Evaluation: 05/08/18 Number of Visits: 24 Current Complaints/Gains: New order received to continue therapy for functional rehab for overhead strength, 2 x week for 6 weeks. Objective Measurements/Presentation: On most recent visit, 07/31/18, Mr. Craft demonstrated full AROM into flexion and abduction. Shoulder strength: flexion 4 /5, abduction 4-/5, extension 5/5, adduction 4+/5. He has met all STG and LTG' s. He is able to continue his HEP for continued strength. We contacted the referring doctor's office regarding continuing therapy. We requested an order for Work Reconditioning to be able to continue strengthening the patient as the doctor wants until his follow up appointment in September. G Codes: NA Source of G Code Score: NA - Short Term Goals Goal #1: Pt independent and compliant with HEP. Goal to be met by: 05/22/18 Progress towards Goal:: Met Goal #2: Pt to demonstrate good postural awareness. Goal to be met by: 05/22/18 Progress towards Goal:: Met Goal #3: Pt able to perform all activities of Late Strengthening Phase of protocol. Goal to be met by: 08/27/18 (revised) Goal #4: Left shoulder strength 4+/5 throughout. Goal to be met by: 08/27/18 (revised) - Salt Maker Goals Goal #1: Pt knows HEP and to continue ex's to maintain functional level at D/C. Goal to be met by: 09/03/18 (date revised) Progress towards goal: Progressing Goal #2: Score on UE functional scale improved to 10% impairment. Goal to be met by: 09/03/18 (revised) Goal #3: Pt able to perform all overhead ROM for ADL's w/o pain or difficulty. Goal to be met by: 09/03/18 (revised) Goal #4: Pt to perform all reaching and light lifting w/o pain or difficulty. Goal to be met by: 09/03/18 (revised) - Assessment Assessment of Improvement/Progress: Aguila's referring physician wants him to progress overhead strength in the shoulder with continued therapy. I feel work reconditioning would be more appropriate at this time, due to the need for less skilled therapy. We have requested an order for Work Reconditioning. Summary: Patient has made progress towards goals., Patient demonstrates potential to gain increased function with therapy - Plan Plan: Continue Plan of Care Comments: New order received for BIW for 6 weeeks. Frequency: 2 X week Duration: 3 weeks Dates of [facility] Goals: 09/03/18 Expiration date of current Insurance Approval:: 09/03/18
--- NOTE | 2018-08-14 09:57 | RS.OPPTDN ---
Subjective Date of Note: 08/14/18 Visit #: 25 Number of visits approved by Insurance: 36 Date of Evaluation: 05/08/18 Payer Source: Workman's Comp Treatment Diagnosis: Left shoulder weakness, pain, s/p surgery Current Subjective/complaints:: Patient reports weakness with above left shoulder height motion and resistive work. Also, popping continues to be noticed at the anterior superior left shoulder joint with active motion. Pain Assessment - Pain Description Pain Location: left shoulder Current Pain Intensity: mild discomfort with resistive work Interventions - Exercise/Activities/Manual Therapy Exercises/Activities: In supine, PROM and end range stretch prior to resistive work. Red theraband for full range left shoulder flex,ext, horz add, horz abd. Increased to 8# wand for overhead chest press and flexion. Blue theraband resisted wand for overhead flexion, extension, and chest press. In sitting, 2# for left shoulder flexion, scaption, and abduction sets of 5 reps. Isometrics with left shoulder at 90 degrees flex, scap, and abd. Yellow theraband resisted IR and ER with left shoulder at 90/90 position, patient only able to perform short range. AROM into flex, scap, and abd. Overhead shelf reaching with 5#, 2s/15reps. Cable sohan for low, short range left shldr abd with 5#, 10reps only. Ended in sitting with 3# wand full overhead flexion. Blue theraband for scap retraction 2s/10reps. Discussion of POC to progress toward work reconditioning with focus on overhead activities. Education of progression of HEP and proper body mechanics with new exercise. Total minutes of Exercise: 42mins Manual Therapy: NA HOME EXERCISE PROGRAM: Patient instructed in Pendulum exercise, AAROM into flexion in painfree range, scapular retraction without discomfort. Isometrics, AROM, ball on the wall. Green theraband scap retraction. Cuff series with light weight. Yellow theraband short range left shldr IR and ER with shoulder at 90/ 90. - Charges Timed Code Treatment Minutes: 42mins Total Treatment Time: 44mins Procedures billed for this date of service:: EX3 Assessment: Patient able to progress with strengthening and motivated to increase functional activity level. Patient Education: Body/Joint mechanics, Home Exercise Program, Activity Modification, Education of Plan of Care Patient demonstrates compliance with HEP?: Yes Short Term Goals Goal #1: Pt independent and compliant with HEP. Goal to be met by: 05/22/18 Progress towards Goal:: Met Goal #2: Pt to demonstrate good postural awareness. Goal to be met by: 05/22/18 Progress towards Goal:: Met Goal #3: Pt able to perform all activities of Late Strengthening Phase of protocol. Goal to be met by: 08/27/18 (revised) Goal #4: Left shoulder strength 4+/5 throughout. Goal to be met by: 08/27/18 (revised) Snf Goals Goal #1: Pt knows HEP and to continue ex's to maintain functional level at D/C. Goal to be met by: 09/03/18 (date revised) Progress towards goal: Progressing Goal #2: Score on UE functional scale improved to 10% impairment. Goal to be met by: 09/03/18 (revised) Goal #3: Pt able to perform all overhead ROM for ADL's w/o pain or difficulty. Goal to be met by: 09/03/18 (revised) Goal #4: Pt to perform all reaching and light lifting w/o pain or difficulty. Goal to be met by: 09/03/18 (revised) Plan Dates of Snf Goals: 09/03/18 Expiration date of current Insurance Approval:: 09/03/18 PLAN: Progress with strengthening.
--- NOTE | 2018-08-16 09:08 | RS.OPPTDN ---
Subjective Date of Note: 08/16/18 Visit #: 26 Number of visits approved by Insurance: 30 total to date Date of Evaluation: 05/08/18 Payer Source: Workman's Comp Treatment Diagnosis: Left shoulder weakness, pain, s/p surgery Current Subjective/complaints:: Patient reports increased soreness left shoulder follwoing progression of strengthening exercises last session. States he is using therabands and will progress HEP over the weekend. Pain Assessment - Pain Description Pain Location: Left shoulder, upper arm, and upper traps Pain Description: muscle soreness Other Comments regarding Pain:: Reports no "pain" but a "soreness". Interventions - Exercise/Activities/Manual Therapy Exercises/Activities: In supine, PROM and end range stretch prior to resistive work. Red theraband for full range left shoulder flex,ext, horz add, horz abd. 8 # wand for overhead chest press and flexion. Green theraband resisted wand for overhead flexion, extension, and chest press. Bodyblade overhead at 90deg flex for chest press motion and flex/ext. In sitting, 2# for left shoulder flexion , scaption, and abduction sets of 5 reps. Decreased to 1# for full abd, sets of 5reps. Isometrics with left shoulder at 90 degrees flex, scap, and abd. AROM into flex, scap, and abd. Overhead shelf reaching with 5#, 2s/15reps. Overhead "baseball throw with light theraband". Ended in sitting with 3# wand full overhead flexion. Blue theraband for scap retraction 2s/10reps. Total minutes of Exercise: 41mins Manual Therapy: NA HOME EXERCISE PROGRAM: Patient instructed in Pendulum exercise, AAROM into flexion in painfree range, scapular retraction without discomfort. Isometrics, AROM, ball on the wall. Green theraband scap retraction. Cuff series with light weight. Yellow theraband short range left shldr IR and ER with shoulder at 90/ 90. - Charges Timed Code Treatment Minutes: 41mins Total Treatment Time: 43mins Procedures billed for this date of service:: EX3 Assessment: Continued strengthening of upper ranges of left shoulder in supine, sitting, and standing. Patient Education: Home Exercise Program Patient demonstrates compliance with HEP?: Yes Short Term Goals Goal #1: Pt independent and compliant with HEP. Goal to be met by: 05/22/18 Progress towards Goal:: Met Goal #2: Pt to demonstrate good postural awareness. Goal to be met by: 05/22/18 Progress towards Goal:: Met Goal #3: Pt able to perform all activities of Late Strengthening Phase of protocol. Goal to be met by: 08/27/18 (revised) Goal #4: Left shoulder strength 4+/5 throughout. Goal to be met by: 08/27/18 (revised) Care Home Goals Goal #1: Pt knows HEP and to continue ex's to maintain functional level at D/C. Goal to be met by: 09/03/18 (date revised) Progress towards goal: Progressing Goal #2: Score on UE functional scale improved to 10% impairment. Goal to be met by: 09/03/18 (revised) Goal #3: Pt able to perform all overhead ROM for ADL's w/o pain or difficulty. Goal to be met by: 09/03/18 (revised) Goal #4: Pt to perform all reaching and light lifting w/o pain or difficulty. 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
--- NOTE | 2018-08-20 11:35 | RS.OPPTDN ---
Subjective Date of Note: 08/20/18 Visit #: 27 Number of visits approved by Insurance: 36 to date Date of Evaluation: 05/08/18 Payer Source: Workman's Comp Treatment Diagnosis: Left shoulder weakness, pain, s/p surgery Current Subjective/complaints:: Patient reports increased left shoulder soreness after increase in strengthening last session. Pain Assessment - Pain Description Pain Location: left shoulder Pain Description: soreness Interventions - Exercise/Activities/Manual Therapy Exercises/Activities: In supine, PROM and end range stretch prior to resistive work. Red theraband for full range left shoulder flex,ext, horz add, horz abd. 5 # wand for overhead chest press and flexion. Green theraband resisted wand for overhead flexion, extension, and chest press. Bodyblade overhead at 90deg flex for chest press motion and flex/ext. In sitting, 2# for left shoulder flexion , 1# abduction, 3s/5reps each. Then 3# dumbell for sorward/overhead press, 2s/ 5reps. Isometrics with left shoulder at 90 degrees flex, scap, and abd. AROM into flex, scap, and abd. Overhead shelf reaching with increased to 7#, 2s/ 15reps. Overhead "baseball throw" with yellow theraband. Cable sohan with 10# for forward left shoulder press. Large therapy ball for overhead "ball on the wall" with bilateral UE's. Ended in sitting with 3# wand full overhead flexion. Total minutes of Exercise: 39mins Manual Therapy: NA HOME EXERCISE PROGRAM: Patient instructed in Pendulum exercise, AAROM into flexion in painfree range, scapular retraction without discomfort. Isometrics, AROM, ball on the wall. Green theraband scap retraction. Cuff series with light weight. Yellow theraband short range left shldr IR and ER with shoulder at 90/ 90. - Charges Timed Code Treatment Minutes: 39mins Total Treatment Time: 41mins Procedures billed for this date of service:: EX3 Assessment: Progressing strengthening of left UE at shoulder height and overhead. Patient Education: Home Exercise Program Patient demonstrates compliance with HEP?: Yes Short Term Goals Goal #1: Pt independent and compliant with HEP. Goal to be met by: 05/22/18 Progress towards Goal:: Met Goal #2: Pt to demonstrate good postural awareness. Goal to be met by: 05/22/18 Progress towards Goal:: Met Goal #3: Pt able to perform all activities of Late Strengthening Phase of protocol. Goal to be met by: 08/27/18 (revised) Progress towards Goal:: Progressing Goal #4: Left shoulder strength 4+/5 throughout. Goal to be met by: 08/27/18 (revised) Progress towards Goal:: Progressing Insurance Sales Associate Goals Goal #1: Pt knows HEP and to continue ex's to maintain functional level at D/C. Goal to be met by: 09/03/18 (date revised) Progress towards goal: Progressing Goal #2: Score on UE functional scale improved to 10% impairment. Goal to be met by: 09/03/18 (revised) Goal #3: Pt able to perform all overhead ROM for ADL's w/o pain or difficulty. Goal to be met by: 09/03/18 (revised) Goal #4: Pt to perform all reaching and light lifting w/o pain or difficulty. Goal to be met by: 09/03/18 (revised) Plan Dates of Retirement Goals: 09/03/18 Expiration date of current Insurance Approval:: 09/03/18 PLAN: Continue progressing strengthening at shoulder height and overhead.
--- NOTE | 2018-08-23 11:47 | RS.OPPTDN ---
Subjective Date of Note: 08/23/18 Visit #: 28 Number of visits approved by Insurance: Correccted to 30 to date (W/c only approved 6 of last 12 visits ordered) Date of Evaluation: 05/08/18 Payer Source: Workman's Comp Treatment Diagnosis: Left shoulder weakness, pain, s/p surgery Current Subjective/complaints:: Patient reports continued improvement in reaching and lefft shoulder strength above shoulder height. Pain Assessment - Pain Description Pain Location: left shoulder Current Pain Intensity: 0 Other Comments regarding Pain:: Reports no pain at rest, fatigue with some "muscle burning" with resistive exercise above shoulder height. Interventions - Exercise/Activities/Manual Therapy Exercises/Activities: In supine, PROM and end range stretch prior to resistive work. Red and green theraband for full range left shoulder flex,ext, horz add, horz abd. Increased to 10# wand for overhead chest press and flexion. Green theraband resisted wand for overhead flexion, extension, and chest press. In sitting, 2# for left shoulder flexion, 1# abduction, increased to 2s/10reps each. Then 3# dumbell for forward and overhead press, increased to 2s/10reps each. Isometrics with left shoulder at 90 degrees flex, scap, and abd. AROM into flex, scap, and abd. Overhead shelf reaching with 7#, 2s/15reps, then additional 2s/10reps at end of session. Overhead "baseball throw" with yellow theraband. Cable sohan with 10# for forward left shoulder press and forward overhead press, 2s/10reps each with breaks. Large therapy ball for overhead "ball on the wall" with bilateral UE's. Total minutes of Exercise: 41mins Manual Therapy: NA HOME EXERCISE PROGRAM: Patient instructed in Pendulum exercise, AAROM into flexion in painfree range, scapular retraction without discomfort. Isometrics, AROM, ball on the wall. Green theraband scap retraction. Cuff series with light weight. Yellow theraband short range left shldr IR and ER with shoulder at 90/ 90. - Charges Timed Code Treatment Minutes: 41mins Total Treatment Time: 43mins Procedures billed for this date of service:: EX3 Assessment: Patient consistently progressing work at shoulder height and overhead. Patient Education: Home Exercise Program Patient demonstrates compliance with HEP?: Yes Short Term Goals Goal #1: Pt independent and compliant with HEP. Goal to be met by: 05/22/18 Progress towards Goal:: Met Goal #2: Pt to demonstrate good postural awareness. Goal to be met by: 05/22/18 Progress towards Goal:: Met Goal #3: Pt able to perform all activities of Late Strengthening Phase of protocol. Goal to be met by: 08/27/18 (revised) Progress towards Goal:: Progressing Goal #4: Left shoulder strength 4+/5 throughout. Goal to be met by: 08/27/18 (revised) Progress towards Goal:: Progressing [facility] Goals Goal #1: Pt knows HEP and to continue ex's to maintain functional level at D/C. Goal to be met by: 09/03/18 (date revised) Progress towards goal: Progressing Goal #2: Score on UE functional scale improved to 10% impairment. Goal to be met by: 09/03/18 (revised) Goal #3: Pt able to perform all overhead ROM for ADL's w/o pain or difficulty. Goal to be met by: 09/03/18 (revised) Progress towards goal: Progressing Goal #4: Pt to perform all reaching and light lifting w/o pain or difficulty. Goal to be met by: 09/03/18 (revised) Progress towards goal: Progressing Plan Dates of [facility] Goals: 09/03/18 Expiration date of current Insurance Approval:: 09/03/18 PLAN: Progress strengthening to increase functional lifting and work overhead.
--- NOTE | 2018-08-26 08:52 | RS.OPPTDN ---
Subjective Date of Note: 08/26/18 Visit #: 29 Number of visits approved by Insurance: 30 Date of Evaluation: 05/08/18 Payer Source: Workman's Comp Treatment Diagnosis: Left shoulder weakness, pain, s/p surgery Current Subjective/complaints:: Patient reports less popping in the left shoulder with resistive work this morning. Pain Assessment - Pain Description Pain Location: left shoulder Current Pain Intensity: no pain, fatigue Interventions - Exercise/Activities/Manual Therapy Exercises/Activities: In supine, PROM and end range stretch prior to resistive work. Red and green theraband for full range left shoulder flex,ext, horz add, horz abd. 10# wand for overhead chest press and flexion. Green theraband resisted wand for overhead flexion, extension, and chest press. In sitting, 2 # for left shoulder flexion, and increased to 2# for abduction, 2s/10reps each. 3# dumbell for forward and overhead press, increased to 2s/10reps each. AROM into flex, scap, and abd. Large therapy ball for overhead "ball on the wall" with bilateral UE's. Overhead shelf reaching 7#, 2s/15reps. Box lift from knee level to shoulder height, 20# box, 10reps. Overhead "baseball throw" increased to red theraband. Cable sohan with 10# for forward left shoulder press and forward overhead press, 2s/10reps each with breaks. Total minutes of Exercise: 39mins Manual Therapy: NA HOME EXERCISE PROGRAM: Patient instructed in Pendulum exercise, AAROM into flexion in painfree range, scapular retraction without discomfort. Isometrics, AROM, ball on the wall. Green theraband scap retraction. Cuff series with light weight. Yellow theraband short range left shldr IR and ER with shoulder at 90/ 90. - Charges Timed Code Treatment Minutes: 39mins Total Treatment Time: 41mins Procedures billed for this date of service:: EX3 Assessment: Patient progressing well with resistive work at and above shoulder height. Patient Education: Home Exercise Program Patient demonstrates compliance with HEP?: Yes Short Term Goals Goal #1: Pt independent and compliant with HEP. Goal to be met by: 05/22/18 Progress towards Goal:: Met Goal #2: Pt to demonstrate good postural awareness. Goal to be met by: 05/22/18 Progress towards Goal:: Met Goal #3: Pt able to perform all activities of Late Strengthening Phase of protocol. Goal to be met by: 08/27/18 (revised) Progress towards Goal:: Progressing Goal #4: Left shoulder strength 4+/5 throughout. Goal to be met by: 08/27/18 (revised) Progress towards Goal:: Progressing Cad Developer Goals Goal #1: Pt knows HEP and to continue ex's to maintain functional level at D/C. Goal to be met by: 09/03/18 (date revised) Progress towards goal: Progressing Goal #2: Score on UE functional scale improved to 10% impairment. Goal to be met by: 09/03/18 (revised) Goal #3: Pt able to perform all overhead ROM for ADL's w/o pain or difficulty. Goal to be met by: 09/03/18 (revised) Progress towards goal: Progressing Goal #4: Pt to perform all reaching and light lifting w/o pain or difficulty. Goal to be met by: 09/03/18 (revised) Progress towards goal: Progressing Plan Dates of Retirement Goals: 09/03/18 Expiration date of current Insurance Approval:: 09/03/18 PLAN: Progress with strengthening to return patient to PLOF.
--- NOTE | 2018-08-27 09:10 | RS.OPPTDN ---
Subjective Date of Note: 08/27/18 Visit #: 30 Number of visits approved by Insurance: 30 to date Date of Evaluation: 05/08/18 Payer Source: [employer] Treatment Diagnosis: Left shoulder weakness, pain, s/p surgery Current Subjective/complaints:: Patient reports continued improvement in strength. States popping seems to be less noticeable again today. States he will check back later this week on The car easily [facility] insurance approval of the last 6 sessions of therapy that his surgeon has ordered. Pain Assessment - Pain Description Pain Location: left shoulder Pain Description: soreness Current Pain Intensity: 0/10 Other Comments regarding Pain:: fatigue with resistive work at or above shoulder height Interventions - Exercise/Activities/Manual Therapy Exercises/Activities: In supine, PROM and end range stretch prior to resistive work. Red and green theraband for full range left shoulder flex,ext, horz add, horz abd. 10# wand for overhead chest press and flexion. Increased to blue theraband resisted wand for overhead flexion, extension, and chest press. Blue theraband for bilateral horz abd and diagonals. In sitting, increased to 3# for left shoulder flexion, and increased to 3# for abduction, 4s/5reps each. AROM into flex, scap, and abd. Overhead reaching with cones and 3# to the left wrist. Large therapy ball for overhead "ball on the wall" with bilateral UE's. Overhead shelf reaching 7#, 2s/15reps. Overhead shelf reaching with 10# 2s/ 10reps. Overhead "baseball throw" increased to red theraband. Patient takes frequent breaks due to fatigue with overhead resistive work. Total minutes of Exercise: 39mins Manual Therapy: NA HOME EXERCISE PROGRAM: Patient instructed in Pendulum exercise, AAROM into flexion in painfree range, scapular retraction without discomfort. Isometrics, AROM, ball on the wall. Green theraband scap retraction. Cuff series with light weight. Yellow theraband short range left shldr IR and ER with shoulder at 90/ 90. - Objective Findings Observations,measurements,etc.: MMT left shoulder flexion 4 to 4+/5, abduction 4 - to 4/5, IR 4+/5, ER 4 to 4+/5. - Charges Timed Code Treatment Minutes: 39mins Total Treatment Time: 40mins Procedures billed for this date of service:: EX3 Assessment: Patient progressing with left shoulder strengthening and overhead work. Patient Education: Home Exercise Program Patient demonstrates compliance with HEP?: Yes Short Term Goals Goal #1: Pt independent and compliant with HEP. Goal to be met by: 05/22/18 Progress towards Goal:: Met Goal #2: Pt to demonstrate good postural awareness. Goal to be met by: 05/22/18 Progress towards Goal:: Met Goal #3: Pt able to perform all activities of Late Strengthening Phase of protocol. Goal to be met by: 08/27/18 (revised) Progress towards Goal:: Progressing Goal #4: Left shoulder strength 4+/5 throughout. Goal to be met by: 08/27/18 (revised) Progress towards Goal:: Progressing Group Home Goals Goal #1: Pt knows HEP and to continue ex's to maintain functional level at D/C. Goal to be met by: 09/03/18 (date revised) Progress towards goal: Progressing Goal #2: Score on UE functional scale improved to 10% impairment. Goal to be met by: 09/03/18 (revised) Progress towards goal: Progressing Goal #3: Pt able to perform all overhead ROM for ADL's w/o pain or difficulty. Goal to be met by: 09/03/18 (revised) Progress towards goal: Progressing Goal #4: Pt to perform all reaching and light lifting w/o pain or difficulty. Goal to be met by: 09/03/18 (revised) Progress towards goal: Partially Met (Has difficulty finishing all sets due to fatigue.) Plan Dates of Regional Account Manager Goals: 09/03/18 Expiration date of current Insurance Approval:: 09/03/18 PLAN: Patient asks to hold chart this week pending Work Comp insurance approval of last 6 visits. May continue POC to increase functional strengthening with overhead activity progressing toward PLOF.
== END 2018-09-08 23:59 ==
PROVIDERS: ATTEND Neuromusculoskeletal Medicine, Sports Medicine
DX: M25.512 Pain in left shoulder (principal); M62.81 Muscle weakness (generalized); Z98.890 Other specified postprocedural states

== ENCOUNTER 2018-09-26 15:00 | Outpatient (RCR) ==
--- NOTE | 2018-09-10 09:03 | RS.OPPTDN ---
Subjective Date of Note: 09/10/18 Visit #: 31 Number of visits approved by Insurance: 36 approved to date Date of Evaluation: 05/08/18 Payer Source: Workman's Comp Treatment Diagnosis: Left shoulder weakness, pain, s/p surgery Current Subjective/complaints:: Patient reports doing well today. States he has not done any work at home or recreational activity due to having a procedure on his ear. <INNA - Charles Filed: 09/10/18 08:46> Pain Assessment - Pain Description Pain Location: left shoulder Current Pain Intensity: 0 Other Comments regarding Pain:: Reports no pain, fatigue with resistive work overhead <INNA - Charles Filed: 09/10/18 08:46> Interventions - Exercise/Activities/Manual Therapy Exercises/Activities: Started wtih 8# wand for chest press and overhead shoulder flexion, multiple reps. Green theraband for full range left shoulder flex,ext, horz add, horz abd. Increased to black theraband for bilateral horz abd and diagonals. 1 1/2# cuff weight for resisted left shoulder flexion and scaption. In sitting, 2# and 3# for left shoulder flexion, and 2# for abduction, 4s/5reps each. 1 1/2 cuff to bilateral wrists during UBE x4mins. AROM into flex, scap, and abd. Overhead reaching with 2# and 3#. Large therapy ball for overhead "ball on the wall" with left and with bilateral UE' s. Overhead shelf reaching 7#, 2s/15reps. Overhead "baseball throw" increased to red theraband, then overhead flexion. Overhead bars for self shoulder stretching. Total minutes of Exercise: 32mins Manual Therapy: NA HOME EXERCISE PROGRAM: Patient instructed in Pendulum exercise, AAROM into flexion in painfree range, scapular retraction without discomfort. Isometrics, AROM, ball on the wall. Green theraband scap retraction. Cuff series with light weight. Yellow theraband short range left shldr IR and ER with shoulder at 90/ 90. - Charges Timed Code Treatment Minutes: 32mins Total Treatment Time: 32mins Procedures billed for this date of service:: EX2 <INNA - Charles Filed: 09/10/18 08:46> Assessment: Patient able to resume left shoulder strengthening and able to work with reduction in breaks for fatigue. Goal dates will be extended to accomodate the last 6 visits approved by w/c insurance following discussion with PT. Patient Education: Home Exercise Program Patient demonstrates compliance with HEP?: Yes <INNA NAYLOR - Last Filed: 09/10/18 08:46> Short Term Goals Goal #1: Pt independent and compliant with HEP. Goal to be met by: 05/22/18 Progress towards Goal:: Met Goal #2: Pt to demonstrate good postural awareness. Goal to be met by: 05/22/18 Progress towards Goal:: Met Goal #3: Pt able to perform all activities of Late Strengthening Phase of protocol. Goal to be met by: 08/27/18 (revised) Progress towards Goal:: Partially Met Goal #4: Left shoulder strength 4+/5 throughout. Goal to be met by: 08/27/18 (revised) Progress towards Goal:: Partially Met <INNA NAYLOR - Last Filed: 09/10/18 08:46> Coating Technician Goals Goal #1: Pt knows HEP and to continue ex's to maintain functional level at D/C. Goal to be met by: 09/03/18 (date revised) Progress towards goal: Progressing Goal #2: Score on UE functional scale improved to 10% impairment. Goal to be met by: 09/03/18 (revised) Progress towards goal: Progressing Goal #3: Pt able to perform all overhead ROM for ADL's w/o pain or difficulty. Goal to be met by: 09/03/18 (revised) Progress towards goal: Progressing Goal #4: Pt to perform all reaching and light lifting w/o pain or difficulty. Goal to be met by: 09/03/18 (revised) Progress towards goal: Partially Met (Has difficulty finishing all sets due to fatigue.) <INNA NAYLOR - Last Filed: 09/10/18 08:46> Goal to be met by: 09/25/18 Goal to be met by: 09/25/18 Goal to be met by: 09/25/18 Goal to be met by: 09/25/18 <ANGELA MACDONALD - Last Filed: 09/10/18 09:09> Plan Dates of Retirement Goals: 09/03/18 Expiration date of current Insurance Approval:: TBD PLAN: Progress with strengthening to return patient to [facility]. <INNA NAYLOR - Last Filed: 09/10/18 08:46> Dates of Retirement Goals: 09/25/18 Expiration date of current Insurance Approval:: 09/25/18 Comments:: Retirement Goal dates extended to accommodate the break in therapy due to Mr. Craft having ear surgery. <ANGELA MACDONALD - Last Filed: 09/10/18 09:09>
--- NOTE | 2018-09-13 15:37 | RS.OPPTDN ---
Subjective Date of Note: 09/13/18 Visit #: 32 Number of visits approved by Insurance: 36 to date Date of Evaluation: 05/08/18 Payer Source: Workman's Comp Treatment Diagnosis: Left shoulder weakness, pain, s/p surgery Current Subjective/complaints:: Patient reports improvement in strength of the left UE and use with daily activities. Interventions - Exercise/Activities/Manual Therapy Exercises/Activities: Increased to 10# wand for chest press and overhead shoulder flexion, multiple reps. Isometric left shoulder flex, ext, add, abd, ER , and IR. Green theraband for full range left shoulder flex,ext, horz add, horz abd. Blue theraband for bilateral horz abd and diagonals. 1 1/2# cuff weight for resisted left shoulder flexion and scaption. Bodyblade in supine. In sitting, 7# wand for resisted shoulder flexion. 2# and 3# for left shoulder flexion, and 2# for abduction, and 3# triceps press. Bodybale with both UE's then left only. AROM into flex, scap, and abd. Large therapy ball for overhead "ball on the wall" with left and with bilateral UE's. Overhead shelf reaching 7#, 2s/15reps. Overhead "baseball throw" increased with blue theraband. Then end range flexion and full adduction with blue theraband. Overhead bars for self shoulder stretching. Ended with passive stretching and additional isometrics. Total minutes of Exercise: 40mins Manual Therapy: NA HOME EXERCISE PROGRAM: Patient instructed in Pendulum exercise, AAROM into flexion in painfree range, scapular retraction without discomfort. Isometrics, AROM, ball on the wall. Green theraband scap retraction. Cuff series with light weight. Yellow theraband short range left shldr IR and ER with shoulder at 90/ 90. - Charges Timed Code Treatment Minutes: 40mins Total Treatment Time: 42mins Procedures billed for this date of service:: EX3 Assessment: Patient progressing well with strengthening. Patient Education: Home Exercise Program Patient demonstrates compliance with HEP?: Yes Short Term Goals Goal #1: Pt independent and compliant with HEP. Goal to be met by: 05/22/18 Progress towards Goal:: Met Goal #2: Pt to demonstrate good postural awareness. Goal to be met by: 05/22/18 Progress towards Goal:: Met Goal #3: Pt able to perform all activities of Late Strengthening Phase of protocol. Goal to be met by: 08/27/18 (revised) Progress towards Goal:: Partially Met Goal #4: Left shoulder strength 4+/5 throughout. Goal to be met by: 08/27/18 (revised) Progress towards Goal:: Partially Met [facility] Goals Goal #1: Pt knows HEP and to continue ex's to maintain functional level at D/C. Goal to be met by: 09/25/18 Progress towards goal: Progressing Goal #2: Score on UE functional scale improved to 10% impairment. Goal to be met by: 09/25/18 Goal #3: Pt able to perform all overhead ROM for ADL's w/o pain or difficulty. Goal to be met by: 09/25/18 Progress towards goal: Progressing Goal #4: Pt to perform all reaching and light lifting w/o pain or difficulty. Goal to be met by: 09/25/18 Progress towards goal: Progressing Plan Dates of Small Engine Mechanic Goals: 09/25/18 Expiration date of current Insurance Approval:: 09/25/18 PLAN: Progress strengthening as ordered to return to prior level of function.
--- NOTE | 2018-09-17 11:59 | RS.OPPTDN ---
Subjective Date of Note: 09/17/18 Visit #: 33 Number of visits approved by Insurance: 36 to date Date of Evaluation: 05/08/18 Payer Source: Workman's Comp Treatment Diagnosis: Left shoulder weakness, pain, s/p surgery Current Subjective/complaints:: Patient reports doing well. States he is playing golf, shooting pool, and performing many daily activities at home. Pain Assessment - Pain Description Pain Location: left shoulder Current Pain Intensity: no pain Interventions - Exercise/Activities/Manual Therapy Exercises/Activities: Passive end range stretching of the left shoulder prior to strengthening. 10# wand for chest press and overhead shoulder flexion, multiple reps. Isometric left shoulder flex, ext, add, abd, ER, and IR. Blue theraband for full range left shoulder flex,ext, horz add, horz abd, IR and ER. Blue theraband for bilateral horz abd and diagonals. 3# dumbell for resisted left shoulder flexion and scaption. Bodyblade in supine. In sitting, 7# wand for resisted shoulder flexion. 3# for left shoulder flexion,scaption, and abduction, and triceps press. In standing, Bodyblade with both UE's then left only. AROM into flex, scap, and abd. Large therapy ball for overhead "ball on the wall" with 1# to each wrist. Overhead shelf reaching 7#, 2s/15reps. Overhead "baseball throw" increased to black theraband. Then end range flexion and full adduction with black theraband. Overhead bars for self shoulder stretching. Total minutes of Exercise: 48mins Manual Therapy: NA HOME EXERCISE PROGRAM: Patient instructed in Pendulum exercise, AAROM into flexion in painfree range, scapular retraction without discomfort. Isometrics, AROM, ball on the wall. Green theraband scap retraction. Cuff series with light weight. Yellow theraband short range left shldr IR and ER with shoulder at 90/ 90. - Objective Findings Observations,measurements,etc.: MMT of left shoulder with flexion 4+ to 5/5, extension 5/5, and abduction 4 to 4+/5. - Charges Timed Code Treatment Minutes: 48mins Total Treatment Time: 48mins Procedures billed for this date of service:: EX3 Assessment: Patient progressing well with advanced strengthening. Patient Education: Home Exercise Program Patient demonstrates compliance with HEP?: Yes Short Term Goals Goal #1: Pt independent and compliant with HEP. Goal to be met by: 05/22/18 Progress towards Goal:: Met Goal #2: Pt to demonstrate good postural awareness. Goal to be met by: 05/22/18 Progress towards Goal:: Met Goal #3: Pt able to perform all activities of Late Strengthening Phase of protocol. Goal to be met by: 08/27/18 (revised) Progress towards Goal:: Partially Met Goal #4: Left shoulder strength 4+/5 throughout. Goal to be met by: 08/27/18 (revised) Progress towards Goal:: Partially Met [facility] Goals Goal #1: Pt knows HEP and to continue ex's to maintain functional level at D/C. Goal to be met by: 09/25/18 Progress towards goal: Progressing Goal #2: Score on UE functional scale improved to 10% impairment. Goal to be met by: 09/25/18 Goal #3: Pt able to perform all overhead ROM for ADL's w/o pain or difficulty. Goal to be met by: 09/25/18 Progress towards goal: Progressing Goal #4: Pt to perform all reaching and light lifting w/o pain or difficulty. Goal to be met by: 09/25/18 Progress towards goal: Progressing Plan Dates of Director Global Goals: 09/25/18 Expiration date of current Insurance Approval:: 09/25/18 PLAN: Progress strengthening.
--- NOTE | 2018-09-19 13:11 | RS.OPPTDN ---
Subjective Date of Note: 09/19/18 Visit #: 34 Number of visits approved by Insurance: 36 to date Date of Evaluation: 05/08/18 Payer Source: Workman's Comp Treatment Diagnosis: Left shoulder weakness, pain, s/p surgery Current Subjective/complaints:: Patient reports left shoulder strength continues to improve. States he feels he has progress but still has "cramping" in the distal left biceps with lifting. Pain Assessment - Pain Description Pain Location: left shoulder Current Pain Intensity: 0 Interventions - Exercise/Activities/Manual Therapy Exercises/Activities: Passive end range stretching of the left shoulder prior to strengthening. 10# wand for chest press and overhead shoulder flexion, multiple reps. Isometric left shoulder flex, ext, add, abd, ER, and IR. Blue theraband for full range left shoulder flex,ext, horz add, horz abd, IR and ER. Blue theraband for bilateral horz abd, diagonals, and bilateral ER. 3# dumbell for resisted left shoulder flexion and scaption. In sitting, 3# for left shoulder flexion, scaption, and abduction, and triceps press. In standing, Bodyblade with both UE's then left only. AROM into flex, scap, and abd. Large therapy ball for overhead "ball on the wall" with 3# to left wrist. Small ball on the wall with 2# to left wrist. Overhead shelf reaching increased to 10#, 3/ 15reps. Overhead "baseball throw" with black theraband. Then end range flexion and full adduction with black theraband. Overhead bars for self shoulder stretching. Total minutes of Exercise: 45mins Manual Therapy: NA HOME EXERCISE PROGRAM: Patient instructed in Pendulum exercise, AAROM into flexion in painfree range, scapular retraction without discomfort. Isometrics, AROM, ball on the wall. Green theraband scap retraction. Cuff series with light weight. Yellow theraband short range left shldr IR and ER with shoulder at 90/ 90. - Charges Timed Code Treatment Minutes: 45mins Total Treatment Time: 45mins Procedures billed for this date of service:: EX3 Assessment: Patient increasing overhead work, with and without resistance. Patient Education: Home Exercise Program, Home Safety Patient demonstrates compliance with HEP?: Yes Short Term Goals Goal #1: Pt independent and compliant with HEP. Goal to be met by: 05/22/18 Progress towards Goal:: Met Goal #2: Pt to demonstrate good postural awareness. Goal to be met by: 05/22/18 Progress towards Goal:: Met Goal #3: Pt able to perform all activities of Late Strengthening Phase of protocol. Goal to be met by: 08/27/18 (revised) Progress towards Goal:: Partially Met Goal #4: Left shoulder strength 4+/5 throughout. Goal to be met by: 08/27/18 (revised) Progress towards Goal:: Partially Met Property Underwriter Goals Goal #1: Pt knows HEP and to continue ex's to maintain functional level at D/C. Goal to be met by: 09/25/18 Progress towards goal: Progressing Goal #2: Score on UE functional scale improved to 10% impairment. Goal to be met by: 09/25/18 Goal #3: Pt able to perform all overhead ROM for ADL's w/o pain or difficulty. Goal to be met by: 09/25/18 Progress towards goal: Partially Met (Performing most overhead activity without difficulty.) Goal #4: Pt to perform all reaching and light lifting w/o pain or difficulty. Goal to be met by: 09/25/18 Progress towards goal: Progressing Plan Dates of Property Underwriter Goals: 09/25/18 Expiration date of current Insurance Approval:: 09/25/18 PLAN: Continue progression of UE strengthening to return patient to PLOF.
--- NOTE | 2018-09-24 16:24 | RS.OPPTDN ---
Subjective Date of Note: 09/24/18 Visit #: 35 Number of visits approved by Insurance: 36 to date Date of Evaluation: 05/08/18 Payer Source: Workman's Comp Treatment Diagnosis: Left shoulder weakness, pain, s/p surgery Current Subjective/complaints:: Patient reports doing well with active reaching including being able to play golf today. Pain Assessment - Pain Description Pain Location: left shoulder Current Pain Intensity: 0/10 Other Comments regarding Pain:: Reports feeling a clunk or pop at supreior left shoulder joint with overhead work, but no pain. Interventions - Exercise/Activities/Manual Therapy Exercises/Activities: Passive end range stretching of the left shoulder prior to strengthening. 10# wand for chest press and overhead shoulder flexion, multiple reps. Isometric left shoulder flex, ext, add, abd, ER, and IR. Blue theraband for full range left shoulder flex,ext, horz add, horz abd, IR and ER. Blue theraband for bilateral horz abd, diagonals, and bilateral ER. 3# dumbell for resisted left shoulder flexion and scaption. In standing, 3# for left shoulder flexion, scaption, and abduction, and triceps press. Also standing, Bodyblade with both UE's then left only. AROM into flex, scap, and abd. Small therapy ball for overhead "ball on the wall" with 3# to left wrist. Large ball on the wall with both UE's. Overhead shelf reaching 10#, 3/15reps. Overhead "baseball throw" with black theraband. Cable pulleys 20# scap retraction. Overhead bars for self shoulder stretching. Total minutes of Exercise: 44mins Manual Therapy: NA HOME EXERCISE PROGRAM: Patient instructed in Pendulum exercise, AAROM into flexion in painfree range, scapular retraction without discomfort. Isometrics, AROM, ball on the wall. Green theraband scap retraction. Cuff series with light weight. Yellow theraband short range left shldr IR and ER with shoulder at 90/ 90. - Charges Timed Code Treatment Minutes: 44mins Total Treatment Time: 44mins Procedures billed for this date of service:: EX3 Assessment: Patient progressing with strengthening and with daily activity level. Patient Education: Home Exercise Program Patient demonstrates compliance with HEP?: Yes Short Term Goals Goal #1: Pt independent and compliant with HEP. Goal to be met by: 05/22/18 Progress towards Goal:: Met Goal #2: Pt to demonstrate good postural awareness. Goal to be met by: 05/22/18 Progress towards Goal:: Met Goal #3: Pt able to perform all activities of Late Strengthening Phase of protocol. Goal to be met by: 08/27/18 (revised) Progress towards Goal:: Partially Met Goal #4: Left shoulder strength 4+/5 throughout. Goal to be met by: 08/27/18 (revised) Progress towards Goal:: Partially Met Assisted Goals Goal #1: Pt knows HEP and to continue ex's to maintain functional level at D/C. Goal to be met by: 09/25/18 Progress towards goal: Progressing Goal #2: Score on UE functional scale improved to 10% impairment. Goal to be met by: 09/25/18 Goal #3: Pt able to perform all overhead ROM for ADL's w/o pain or difficulty. Goal to be met by: 09/25/18 Progress towards goal: Partially Met (Performing most overhead activity without difficulty.) Goal #4: Pt to perform all reaching and light lifting w/o pain or difficulty. Goal to be met by: 09/25/18 Progress towards goal: Progressing Plan Dates of Commercial Lines Manager Goals: 09/25/18 Expiration date of current Insurance Approval:: 09/25/18 PLAN: Progress with strengthening and functional activity level.
--- NOTE | 2018-09-26 16:50 | RS.OPPTDN ---
Subjective Date of Note: 09/26/18 Visit #: [id number] Number of visits approved by Insurance: 36 to date Date of Evaluation: 05/08/18 Payer Source: Workman's Comp Treatment Diagnosis: Left shoulder weakness, pain, s/p surgery Current Subjective/complaints:: Patient reports he is pleased with his ROM and strength is progressing well. States he continues to have muscle spasms at the left distal biceps with some activity. Pain Assessment - Pain Description Pain Location: left shoulder Current Pain Intensity: 0 Other Comments regarding Pain:: Some muscle soreness with increased activity and muscle spasms at the distal biceps. Interventions - Exercise/Activities/Manual Therapy Exercises/Activities: Passive end range stretching of the left shoulder prior to strengthening. 10# wand for chest press and overhead shoulder flexion, multiple reps. Isometric left shoulder flex, ext, add, abd, ER, and IR. Blue theraband for full range left shoulder flex,ext, horz add, horz abd, IR and ER. Blue theraband for bilateral horz abd, diagonals, and bilateral ER. 3# dumbell for resisted left shoulder flexion and scaption. In standing, 3# for left shoulder flexion, scaption, and abduction, and triceps press. In standing, Bodyblade with both UE's then left only. AROM into flex, scap, and abd. Small therapy ball for overhead "ball on the wall" with 3# to left wrist. Large ball on the wall with both UE's. Overhead shelf reaching 10#, 3/15reps. Overhead "baseball throw" with black theraband. Cable pulleys 20# scap retraction. Cable sohan left shoulder forward chest press 10#. Overhead bars for self shoulder stretching. Total minutes of Exercise: 45mins Manual Therapy: NA HOME EXERCISE PROGRAM: Patient instructed in Pendulum exercise, AAROM into flexion in painfree range, scapular retraction without discomfort. Isometrics, AROM, ball on the wall. Green theraband scap retraction. Cuff series with light weight. Yellow theraband short range left shldr IR and ER with shoulder at 90/ 90. - Objective Findings Observations,measurements,etc.: Left hand artist model 97#. Left shoulder MMT: Flexion 5/5, Abduction 4 to 4+/5, Extension 5/5, Internal Rotation 5/5, and External Rotation 4+/5. - Charges Timed Code Treatment Minutes: 45mins Total Treatment Time: 45mins Procedures billed for this date of service:: EX3 Assessment: Patient has progressed well and met 6 of 8 treatment goals. He is performing most ADL's, including lifting, without difficulty. Patient Education: Home Exercise Program Patient demonstrates compliance with HEP?: Yes Short Term Goals Goal #1: Pt independent and compliant with HEP. Goal to be met by: 05/22/18 Progress towards Goal:: Met Goal #2: Pt to demonstrate good postural awareness. Goal to be met by: 05/22/18 Progress towards Goal:: Met Goal #3: Pt able to perform all activities of Late Strengthening Phase of protocol. Goal to be met by: 08/27/18 (revised) Progress towards Goal:: Met (Left shoulder abduction 4 to 4+/5, all others 4+ to 5/5.) Goal #4: Left shoulder strength 4+/5 throughout. 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 Goal to be met by: 09/25/18 Progress towards goal: Met Goal #2: Score on UE functional scale improved to 10% impairment. Goal to be met by: 09/25/18 Progress towards goal: Met Goal #3: Pt able to perform all overhead ROM for ADL's w/o pain or difficulty. Goal to be met by: 09/26/18 Progress towards goal: Partially Met (Performing most overhead activity without difficulty.) Goal #4: Pt to perform all reaching and light lifting w/o pain or difficulty. Goal to be met by: 09/25/18 Progress towards goal: Met Plan Dates of Jail Goals: 09/26/18 Expiration date of current Insurance Approval:: 09/26/18 PLAN: LTG extended one day to complete all approved visits that have been ordered. Patient scheduled to return to physician next week for a follow-up appointment. Will hold chart at this time with discharge expected due to good progress with strength and functional use of the left upper extremity.
== END 2018-10-08 23:59 ==
PROVIDERS: ATTEND Neuromusculoskeletal Medicine, Sports Medicine
DX: M25.512 Pain in left shoulder (principal); M62.81 Muscle weakness (generalized); Z98.890 Other specified postprocedural states

== ENCOUNTER 2023-10-27 17:47 | Inpatient (IN) ==
--- NOTE | 2023-10-27 18:21 | ED.PDOC ---
General ED Provider: Dr. RODNEY OCONNELL MD Chief Complaint: Respiratory Complaint Stated Complaint: Patient history of type 2 diabetes hypertension complains of a productive cough yellow-green sputum placed on antibiotic Zithromax with prednisone 3 days ago by primary care provider patient is then seen emergency room following day and placed on antibiotics Augmentin. Patient complains of dyspnea, productive cough also complains of watery diarrhea since taking antibiotic. Patient complains of exertional dyspnea associate with fever chills arthralgia. Denies chest pain vomiting. Time Seen by Provider: 10/27/23 18:20 Information Source: Patient Exam Limitations: Clinical condition Primary Care Provider: MAHNAZ ESTRADA MD Nursing and Triage Documentation Reviewed and Agree: Yes What is Opioid Naive?: *Opioid Naive implies the patient is not already taking opioids or not chronically receiving opioids on a daily basis. *PRN dosing is not "usually" associated with tolerance. *Patients are at higher risk of over-sedation and aspiration. What is Opioid Tolerant?: *Opioid Tolerance implies less than the expected response to an opioid. *Acquired tolerance is defined by the patient taking 60mg of oral morphine daily (or equianalgesic dose of another opioid) for 1 week or more. *Often associated with chronic pain. *May take more than usual dose to achieve desired pain control. Review of Systems Review Of Systems Constitutional: Reports Fever and Malaise Eyes: Reports No symptoms Ears, Nose, Mouth, Throat: Reports No symptoms Respiratory: Reports Cough and Shortness of Breath Cardiac: Reports No symptoms GI: Reports Diarrhea : Reports No symptoms Musculoskeletal: Reports No symptoms Skin: Reports No symptoms Neurological: Reports No symptoms Endocrine: Reports No symptoms Hematologic/Lymphatic: Reports No symptoms All Other Systems: Reviewed and Negative [facility] Medical History Cochlear implant in place Z96.21 - Cochlear implant status (ICD-10) Family History Mother Cancer Hypertension FATHER Cerebrovascular accident Social History Smoking and tobacco status: Current some day smoker Alcohol intake: never Substance use type: does not use Special kaleigh needs: No Agree to transfusion: Yes Adopted: No Caregiver/support person: No Foster care: No Household members: spouse Housing: house Marital status: M Lives independently: Yes Number of children: 4 service: Yes correction: No History of recent travel: No Do you think of yourself as: straight/heterosexual Current gender identity: male Seatbelt use: always Drives intoxicated or rides with intoxicated driver license reviewing officer: No Water heater temperature set < 120 degrees: Yes Working smoke detector in home: Yes Fire extinguisher in home: Yes Carbon monoxide detector in home: Yes Surgical History History of carpal tunnel repair Dr. Doherty [place] 04/2022 Z98.890 - Other specified postprocedural states (ICD-10) History of ear, nose, and throat (ENT) surgery EAR SURGERY Z98.890 - Other specified postprocedural states (ICD-10) Status post tonsillectomy Z90.89 - Acquired absence of other organs (ICD-10) Status post hernia repair Z98.890 - Other specified postprocedural states (ICD-10) Physical Exam Physical Exam Appearance: Reports Ill-appearing Ill-appearing: Mild Pain Distress: None Eyes: Reports BERNIE, EOMI and Conjunctiva clear ENT: Reports Ears normal Neck: Supple Respiratory: Reports Airway patent, Breath sounds diminished and Wheezes (Diminished breath sounds at the base with terminal faint expiratory wheezes.) Cardiovascular: Reports RRR, Pulses normal, No rub, No murmur and Tachycardia GI/: Reports Soft, Nontender, No masses and Bowel sounds normal Musculoskeletal: Reports Normal strength, ROM intact, No edema and No calf tenderness Skin: Reports Warm, Dry and Normal color Neurological: Reports Sensation intact, Motor intact and Reflexes intact Psychiatric: Reports Affect appropriate and Mood appropriate Physician Notification Case Discussed Physician Notified: Discussed with Dr. [place] Estrada at [id number] Time of Notification: 21:55 Comments: After consultation and review of all laboratory data CT scans of chest and head recommendation made for admit to hospital service Physician Notified: Discussed with Norma Teran Time of Notification: 22:00 Comments: After review of all laboratory data CT scan findings of the chest and head recommendation made for inpatient admission. Critical Care Note Critical Care Note Total Critical Care Time (mins): 30 Course Course 10/27/23 18:50 10/27/23 18:50 Orders, Labs, Meds: Lab Review 05/10/27/23 10/27/23 18:27 18:50 19:07 WBC 10.76 H RBC 4.35 L Hgb 13.2 L Hct 39.3 L MCV 90.3 MCH 30.3 MCHC 33.6 RDW Coeff of Chet 13.1 Plt Count 172 Immature Gran % (Auto) 0.8 Neut % (Auto) 80.0 H Lymph % (Auto) 9.9 L Hudson % (Auto) 9.2 Eos % (Auto) 0.0 Baso % (Auto) 0.1 Neut # (Auto) 8.6 H Lymph # (Auto) 1.1 Hudson # (Auto) 1.0 Eos # (Auto) 0.0 Baso # (Auto) 0.0 Immature Gran # (Auto) 0.1 Puncture Site Rr Base Excess -2.6 L O2 Saturation 89.8 L ABG pH 7.47 H ABG pCO2 29.0 L ABG pO2 54.0 L* ABG HCO3 21.1 ABG Total CO2 22.0 Mars Test Pos Hemoglobin 1.2 Oxyhemoglobin 91.2 L Carboxyhemoglobin 1.5 Total Hemoglobin 13.7 O2 Delivery Device Ra FiO2 % 21.0 Sodium 127.3 L Potassium 3.78 Chloride 99.7 Carbon Dioxide 19.4 L Anion Gap 11.98 BUN 13.5 Creatinine 0.76 Estimated GFR (MDRD) 105.00 BUN/Creatinine Ratio 17.76 Glucose 198.0 H Lactic Acid 1.29 Calcium 8.55 Total Bilirubin 0.81 AST 31.1 ALT 19.3 Alkaline Phosphatase 42.9 L Troponin I 0.015 Total Protein 6.62 Albumin 3.56 Globulin 3.06 Albumin/Globulin Ratio 1.16 D-Dimer 2653.74 H Urine Color Urine Clarity Urine pH Ur Specific [place] Urine Protein Urine Glucose (UA) Urine Ketones Urine Blood Urine Nitrite Urine Bilirubin Urine Urobilinogen Ur Leukocyte Esterase Urine Microscopic RBC Urine Microscopic WBC Ur Squamous Epith Cells Urine Bacteria Adenovirus (PCR) Not detected B. pertussis DNA (PCR) Not detected B.parapertussis DNA PCR Not detected C. pneumoniae DNA (PCR) Not detected Coronavirus OC43 (PCR) Not detected Coronavirus HKU1 (PCR) Not detected Coronavirus 229E (PCR) Not detected Coronavirus NL63 (PCR) Not detected Human Metapneumovir PCR Not detected Influenza Type A (PCR) Not detected Influenza B (RT-PCR) Not detected M. pneumoniae (PCR) Not detected Parainfluenza 1 (PCR) Not detected Parainfluenza 2 (PCR) Not detected Parainfluenza 3 (PCR) Not detected Parainfluenza 4 (PCR) Not detected RSV (PCR) Not detected Entero/Rhino (PCR) Not detected SARS-CoV-2 (PCR) Not detected 10/27/23 20:23 WBC RBC Hgb Hct MCV MCH MCHC RDW Coeff of Chet Plt Count Immature Gran % (Auto) Neut % (Auto) Lymph % (Auto) Hudson % (Auto) Eos % (Auto) Baso % (Auto) Neut # (Auto) Lymph # (Auto) Hudson # (Auto) Eos # (Auto) Baso # (Auto) Immature Gran # (Auto) Puncture Site Base Excess O2 Saturation ABG pH ABG pCO2 ABG pO2 ABG HCO3 ABG Total CO2 Mars Test Hemoglobin Oxyhemoglobin Carboxyhemoglobin Total Hemoglobin O2 Delivery Device FiO2 % Sodium Potassium Chloride Carbon Dioxide Anion Gap BUN Creatinine Estimated GFR (MDRD) BUN/Creatinine Ratio Glucose Lactic Acid Calcium Total Bilirubin AST ALT Alkaline Phosphatase Troponin I Total Protein Albumin Globulin Albumin/Globulin Ratio D-Dimer Urine Color Yellow Urine Clarity Clear Urine pH 5.5 Ur Specific [place] >=1.030 Urine Protein 2+ H Urine Glucose (UA) Trace H Urine Ketones Negative Urine Blood 3+ H Urine Nitrite Negative Urine Bilirubin Negative Urine Urobilinogen 0.2 Ur Leukocyte Esterase Negative Urine Microscopic RBC 20-30 Urine Microscopic WBC 2-5 Ur Squamous Epith Cells 0-2 Urine Bacteria Trace Adenovirus (PCR) B. pertussis DNA (PCR) B.parapertussis DNA PCR C. pneumoniae DNA (PCR) Coronavirus OC43 (PCR) Coronavirus HKU1 (PCR) Coronavirus 229E (PCR) Coronavirus NL63 (PCR) Human Metapneumovir PCR Influenza Type A (PCR) Influenza B (RT-PCR) M. pneumoniae (PCR) Parainfluenza 1 (PCR) Parainfluenza 2 (PCR) Parainfluenza 3 (PCR) Parainfluenza 4 (PCR) RSV (PCR) Entero/Rhino (PCR) SARS-CoV-2 (PCR) Orders Category Date Time Status ABG DRAW REQUEST Stat CARDIO 10/27/23 18:27 Completed EKG-(ED ONLY) Stat CARDIO 10/27/23 18:27 Completed NEBULIZER TREATMENT Routine CARDIO 10/27/23 22:15 Ordered NEBULIZER TREATMENT Stat CARDIO 10/27/23 18:32 Completed NEBULIZER TREATMENT Stat CARDIO 10/27/23 20:03 Completed NEBULIZER TREATMENT Stat CARDIO 10/27/23 21:13 Completed OXYGEN Routine CARDIO 10/27/23 22:13 Ordered ACTIVITY .Up With Assistance CARE 10/27/23 22:12 Active BLOOD GLUCOSE MONITORING (MED/SURG) 0630,1100,1700,2100 CARE 10/27/23 22:13 Active GIVE HS SNACK 2100 CARE 10/27/23 22:12 Active INTAKE & OUTPUT Q8HR CARE 10/27/23 22:12 Active NPO REMINDER: IMAGING ONCE CARE 10/27/23 20:03 Active VITAL SIGNS Q4HR CARE 10/27/23 22:12 Active ADA 1800 YOSI. DIET DIETARY 10/28/23 Breakfast Ordered HS SNACK DIETARY 10/27/23 Dinner Ordered Manager Meat [ED SCRAP MATERIALS BUYER APPLIED] .ONCE EMERGENCY 10/27/23 18:27 Active ABG COOX Stat LAB 10/27/23 19:07 Completed BLOOD CULTURE (ED ONLY) Stat LAB 10/27/23 18:54 Received CBC W/ AUTO DIFF DAILY@0600 LAB 10/28/23 06:00 Ordered CBC W/ AUTO DIFF DAILY@0600 LAB 10/29/23 06:00 Ordered CBC W/ AUTO DIFF Stat LAB 10/27/23 18:50 Completed CMP [COMPREHENSIVE METABOLIC PANEL] Stat LAB 10/27/23 18:50 Completed COMPREHENSIVE METABOLIC PANEL DAILY@0600 LAB 10/28/23 06:00 Ordered COMPREHENSIVE METABOLIC PANEL DAILY@0600 LAB 10/29/23 06:00 Ordered D-DIMER Stat LAB 10/27/23 18:50 Completed LACTIC ACID Stat LAB 10/27/23 18:50 Completed LEGIONELLA URINARY ANTIGEN Stat LAB 10/27/23 22:12 Uncollected MRSA SCREEN Routine LAB 10/27/23 22:12 Uncollected PROCALCITONIN DAILY LAB 10/28/23 06:00 Ordered PROCALCITONIN DAILY LAB 10/29/23 06:00 Ordered RESPIRATORY PANEL 2.1 (PCR) Stat LAB 10/27/23 18:27 Completed STREP PNEUMO AG, URINE Stat LAB 10/27/23 22:12 Ordered TROPONIN I Stat LAB 10/27/23 18:50 Completed UA [URINALYSIS C & S IF INDICATED] Stat LAB 10/27/23 20:23 Completed Acetaminophen [Tylenol] Meds 10/27/23 22:12 Active 650 mg PO Q4H PRN Benzonatate [Tessalon Perles] Meds 10/27/23 22:12 Ordered 100 mg PO TID PRN Ceftriaxone/D5w 1 gm Premix [Rocephin 1 gm/50 ml D5w] Meds 10/28/23 09:00 Ordered 1 gm in 50 ml IV DAILY Ceftriaxone/D5w 2 gm Premix [Rocephin 2 gm/50 ml D5w] Meds 10/27/23 18:31 Discontinued 2 gm in 50 ml IV ONCE Doxycycline Hyclate Inj [Doxy-100] 100 mg Meds 10/27/23 22:15 Ordered 0.9 % Sodium Chloride [Sodium Chloride 100Ml] 100 ml IV Q12HR Guaifenesin/Dextromethorphan [Robitussin Dm Syrup] Meds 10/27/23 22:12 Ordered 5 ml PO Q4H PRN Ibuprofen [Motrin] Meds 10/27/23 18:27 Discontinued 600 mg PO ONCE ONE Insulin Lispro [Humalog] Meds 10/27/23 22:12 Active See Protocol SUBCUT PRN PRN Ipratropium/Albuterol Neb [Duoneb] Meds 10/27/23 18:32 Discontinued 3 ml NEB ONCE STA Ipratropium/Albuterol Neb [Duoneb] Meds 10/27/23 20:02 Discontinued 3 ml NEB ONCE STA Ipratropium/Albuterol Neb [Duoneb] Meds 10/27/23 22:12 Ordered 3 ml NEB RTQ4H PRN Levalbuterol HCl [Xopenex 1.25 mg] Meds 10/27/23 21:13 Discontinued 1.25 mg NEB ONCE STA Methylprednisolone Sod Succ/Pf [Solu-Medrol 40 mg] Meds 10/27/23 22:15 Active 40 mg IVP Q8HR Morphine Sulfate [Morphine 2 mg/ml Syringe] Meds 10/27/23 21:20 Discontinued 2 mg IVP ONCE ONE Ondansetron HCl/Pf [Zofran 4 mg/2 ml] Meds 10/27/23 22:12 Active 4 mg IVP Q6H PRN Ringers Lactated Solution [Lactated Ringers] 1,000 ml Meds 10/27/23 22:30 Ordered IV 100 mls/hr Sodium Chloride 0.9% [Sodium Chloride] 1,000 ml Meds 10/27/23 22:07 Active IV 30 mls/hr Sodium Chloride 0.9% [Sodium Chloride] 1,000 ml Meds 10/27/23 21:54 Active IV 500 mls/hr Sodium Chloride 0.9% [Sodium Chloride] 1,000 ml Meds 10/27/23 18:27 Discontinued IV BOLUS Sodium Chloride 0.9% [Sodium Chloride] 1,000 ml Meds 10/27/23 22:07 Active IV BOLUS CHEST, 1V AP ONLY Stat RADS 10/27/23 19:[address] HEAD W/O CONTRAST Stat RADS 10/27/23 19:19 Completed CTA CHEST PE PROTOCOL Stat RADS 10/27/23 20:02 Completed Medications Generic Name Dose Route Start Last Admin Trade Name Freq PRN Reason Stop Dose Admin Acetaminophen 650 mg 10/27/23 22:12 Acetaminophen 325 Mg Tablet PO Q4H PRN Mild Pain Albuterol/Ipratropium 3 ml 10/27/23 22:12 Ipratropium/Albuterol Vial.Neb NEB RTQ4H PRN Wheezing Benzonatate 100 mg 10/27/23 22:12 Benzonatate 100 Mg Capsule PO TID PRN Cough Guaifenesin/Dextromethorphan 5 ml 10/27/23 22:12 Guaifenesin/Dextromethorphan 200/20 Mg/10 Ml Cup PO Q4H PRN Cough Sodium Chloride 1,000 mls @ 500 mls/hr 10/27/23 21:54 10/27/23 22:18 Sodium Chloride IV 10/27/23 23:53 Not Given .Q2H ONE Sodium Chloride 1,000 mls @ 30 mls/hr 10/27/23 22:07 Sodium Chloride IV 10/29/23 07:26 .X50H30O ONE Sodium Chloride 1,000 mls @ 1,000 mls/hr 10/27/23 22:07 10/27/23 22:18 Sodium Chloride IV 10/27/23 23:06 1,000 mls/hr BOLUS ONE Administration Doxycycline Hyclate 100 mg/ 100 mls @ 50 mls/hr 10/27/23 22:15 Sodium Chloride IV 10/30/23 22:14 Q12HR [facility] Lactated Ringer's 1,000 mls @ 100 mls/hr 10/27/23 22:30 Lactated Ringers IV .Q10H [facility] CEFTRIAXONE/D5W 1 GM PREMIX 1 gm in 50 mls @ 100 mls/hr 10/28/23 09:00 Rocephin 1 Gm/50 Ml D5w IV 10/31/23 08:59 DAILY [facility] Insulin Human Lispro 0 unit 10/27/23 22:12 Insulin Lispro 100 Unit/Ml Vial SUBCUT PRN PRN Hyperglycemia Protocol Methylprednisolone Sodium Succinate 40 mg 10/27/23 22:15 Methylprednisolone Sod Succ/Pf 40 Mg/Ml Vial IVP Q8HR [facility] Ondansetron HCl 4 mg 10/27/23 22:12 Ondansetron Hcl/Pf 4 Mg/2 Ml Sdv IVP Q6H PRN Nausea / Vomiting Discontinued Medications Generic Name Dose Route Start Last Admin Trade Name Freq PRN Reason Stop Dose Admin Albuterol/Ipratropium 3 ml 10/27/23 18:32 10/27/23 19:36 Ipratropium/Albuterol Vial.[facility] 10/27/23 18:33 3 ml ONCE STA Administration Albuterol/Ipratropium 3 ml 10/27/23 20:02 10/27/23 20:06 Ipratropium/Albuterol Vial.[facility] 10/27/23 20:03 3 ml ONCE STA Administration Sodium Chloride 1,000 mls @ 1,000 mls/hr 10/27/23 18:27 10/27/23 20:06 Sodium Chloride IV 10/27/23 19:26 Infused BOLUS ONE Infusion CEFTRIAXONE/D5W 2 GM PREMIX 2 gm in 50 mls @ 100 mls/hr 10/27/23 18:31 10/27/23 19:07 Rocephin 2 Gm/50 Ml D5w IV 10/27/23 19:00 100 mls/hr ONCE ONE Administration Ibuprofen 600 mg 10/27/23 18:27 10/27/23 19:05 Ibuprofen 600 Mg Tablet PO 10/27/23 18:28 600 mg ONCE ONE Administration Levalbuterol HCl 1.25 mg 10/27/23 21:13 10/27/23 21:23 Levalbuterol Hcl 1.25 Mg/3 Ml Vial.Neb NEB 10/27/23 21:14 1.25 mg ONCE STA Administration Morphine Sulfate 2 mg 10/27/23 21:20 10/27/23 21:36 Morphine Sulfate 2 Mg/Ml Syringe IVP 10/27/23 21:21 2 mg ONCE ONE Administration Vital Signs: Temp Pulse Resp BP Pulse Ox O2 Flow Rate 10/27/23 21:35 98.1 F 98 18 114/61 99 2 10/27/23 18:03 104.0 F H 124 H 20 107/62 93 L Discharge Plan Discharge Patient Disposition: ADMITTED INPATIENT Discharge Problem: Acute dyspnea, Acute bronchospasm Pneumonia Qualifiers: Pneumonia type: due to unspecified organism Laterality: left Did you review [place] [employer]OVE [employer] for ALL controlled substances?: Not Applicable ED Provider: RODNEY OCONNELL Condition: Stable Physician Progress Note: Patient history of type 2 diabetes hypertension complains of productive cough dyspnea past 3 days seen and evaluated primary care provider 3 days ago placed on antibiotic Zithromax and prednisone patient was then seen evaluated following day in the emergency room placed on Augmentin. Patient complains having fever, chills, arthralgia complains of watery diarrhea patient also complains of exertional dyspnea. Denies chest pain, nausea vomiting. 1835 Patient placed on sepsis protocol 95 kg / 30 mL, bolus of 1 L/h x 3 Patient is taking Tylenol 1 g prior to arrival Patient given Motrin 60 mg orally After 2 sets of blood cultures Rocephin 2 g IV piggyback, Solu-Medrol 120 mg IV Saturation is 92% on 2 L of oxygen. Laboratory data CBC and BMP is normal limits lactic acid 1.29. D-dimer 2653. The respiratory panel was completely negative. Patient taken off the sepsis protocol after 2 hours. Patient administered morphine sulfate 2 mg x 2 doses for headache. Portable chest x-ray interpretation by the radiologist is consistent with increasing infiltrates in the left mid and lower lobes opacities The head CT scan without intravenous contrast rotation radiologist consistent with no intracranial abnormality. CTA of the chest PE protocol interpretation by radiologist consistent with no evidence of pulm embolism there is multifocal left lower lung consolidation Patient administered DuoNeb aerosol treatments x 2 followed by 1 Xopenex aerosol treatment. Differential diagnosis: 1) acute dyspnea 2) pneumonia with bronchospasm Discussed with hospitalist Norma Teran at 2200 for admission
[2023-10-27 18:59] LABS: BASOPHILS % (AUTO) 0.1 % (0.0-3.0); HEMATOCRIT 39.3 % (42.0-52.0); HEMOGLOBIN 13.2 g/dl (14.0-18.0); IMMATURE GRANULOCYTE # (AUTO) 0.1 (0.0-1.0); IMMATURE GRANULOCYTE % (AUTO) 0.8 % (0.0-5.0); LYMPHOCYTES # (AUTO) 1.1 K/uL (0.60-3.4); LYMPHOCYTES % (AUTO) 9.9 (10.0-50.0); MEAN CORPUSCULAR HEMOGLOBIN 30.3 pg (27.0-31.0); MEAN CORPUSCULAR HGB CONC 33.6 (31.8-35.4); MEAN CORPUSCULAR VOLUME 90.3 fl (80.0-94.0); MONOCYTES % (AUTO) 9.2 (0-10); NEUTROPHILS # (AUTO) 8.6 K/ul (2.0-6.9); PLATELET COUNT 172 10^3/uL (140-440); RDW COEFFICIENT OF VARIATION 13.1 % (11.6-14.8); RED BLOOD COUNT 4.35 10^6/ul (4.70-6.10); WHITE BLOOD COUNT 10.76 K/ul (4.2-10.2)
[2023-10-27 18:59] LABS: BORDETELLA PARAPERTUSSIS (PCR) NOT DETECTED (NOT DETECT); BORDETELLA PERTUSSIS (PCR) NOT DETECTED (NOT DETECT); CHLAMYDIA PNEUMONIAE (PCR) NOT DETECTED (NOT DETECT); CORONAVIRUS 229E (PCR) NOT DETECTED (NOT DETECT); CORONAVIRUS HKU1 (PCR) NOT DETECTED (NOT DETECT); CORONAVIRUS NL63 (PCR) NOT DETECTED (NOT DETECT); CORONAVIRUS OC43 (PCR) NOT DETECTED (NOT DETECT); HUMAN METAPNEUMOVIRUS (PCR) NOT DETECTED (NOT DETECT); HUMAN RHINOVIRUS/ENTEROV (PCR) NOT DETECTED (NOT DETECT); INFLUENZA B (PCR) NOT DETECTED (NOT DETECT); MYCOPLASMA PNEUMONIAE (PCR) NOT DETECTED (NOT DETECT); PARAINFLUENZA VIRUS 1 (PCR) NOT DETECTED (NOT DETECT); PARAINFLUENZA VIRUS 2 (PCR) NOT DETECTED (NOT DETECT); PARAINFLUENZA VIRUS 3 (PCR) NOT DETECTED (NOT DETECT); PARAINFLUENZA VIRUS 4 (PCR) NOT DETECTED (NOT DETECT); RESPIRATORY SYNCYTIAL V (PCR) NOT DETECTED (NOT DETECT); SARS_COV_2 (PCR) NOT DETECTED (NOT DETECT)
[2023-10-27] MEDS: MOTRIN PO ONE (19:05)
[2023-10-27] MEDS: SODIUM CHLORIDE 1,000 ML IV ONE ×3 (19:06→22:18)
[2023-10-27] MEDS: ROCEPHIN 2 GM/50 ML D5W 2 GM/50 ML BAG IV ONE (19:07)
[2023-10-27 19:13] LABS: ALANINE AMINOTRANSFERASE 19.3 U/L (0-50); ALBUMIN 3.56 g/dL (3.5-5.0); ALKALINE PHOSPHATASE 42.9 U/L (56-119); ASPARTATE AMINO TRANSFERASE 31.1 U/L (17-59); BILIRUBIN,TOTAL 0.81 mg/dL (0.2-1.3); BLOOD UREA NITROGEN 13.5 mg/dL (9-20); CALCIUM 8.55 mg/dL (8.4-10.2); CARBON DIOXIDE 19.4 mmol/L (22-30.0); CHLORIDE 99.7 mmol/L (98-107); CREATININE 0.76 mg/dL (0.60-1.10); POTASSIUM 3.78 mmol/L (3.5-5.1); SODIUM 127.3 mmol/L (134.5-145); TOTAL PROTEIN 6.62 g/dL (6.3-8.2)
[2023-10-27 19:23] LABS: ABG O2 HGB 91.2 % (95-100); ABG PH 7.47 (7.35-7.45); BEecf -2.6 (-2.0-3.0); COHb 1.5 (0.5-1.5); HCO3 21.1 (21-28); MetHb 1.2 (0-1.5); sO2 89.8 % (94-98); tHb 13.7 g/dl (11.7-17.4)
[2023-10-27 19:23] LABS: TROPONIN I 0.015 ng/ml (0.0000-0.120)
[2023-10-27] MEDS: DUONEB NEB STA ×2 (19:36→20:06)
--- NOTE | 2023-10-27 19:48 | CT ---
EXAM: CT HEAD WITHOUT CONTRAST HISTORY: Headache COMPARISON: None TECHNIQUE: Serial axial images of the brain were obtained from the skull base to the vertex without IV contrast. FINDINGS: The ventricles, cisterns and sulci are normal. The chavira-white matter junction is maintain ed. No midline shift or mass is identified. There is no abnormal intra or extra-axial fluid collect ion. The paranasal sinuses and mastoid air cells are clear. The osseous calvarium is intact. IMPRESSION: No acute intracranial abnormality or hemorrhage. All CT scans are performed using dose optimization techniques as appropriate to the performed exam an d include at least one of the following: Automated exposure control, adjustment of the mA and/or kV according t o size, and the use of iterative reconstruction technique.
[2023-10-27 19:50] LABS: ADENOVIRUS (PCR) NOT DETECTED (NOT DETECT)
--- NOTE | 2023-10-27 20:04 | DI ---
EXAM: CHEST RADIOGRAPH (1 VIEW) TECHNIQUE: Frontal Chest Radiograph. HISTORY: Cough, dyspnea COMPARISON: 10/25/2023. FINDINGS: Lines, Tubes, Devices: None Lungs and Pleura: Left mid and lower lung opacities have increased. The lungs are otherwise clear. No pleural effusion or pneumothorax. Cardiac silhouette: Normal. Bones: No acute abnormality. IMPRESSION: Increased left lung pneumonia.
[2023-10-27 20:33] LABS: BILIRUBIN,URINE Negative (NEGATIVE); CLARITY,URINE Clear (CLEAR); COLOR,URINE Yellow (YELLOW); GLUCOSE, URINE (UA) Trace (NEGATIVE); KETONES,URINE Negative (NEGATIVE); LEUKOCYTE ESTERASE ,URINE Negative (NEGATIVE); NITRITE,URINE Negative (NEGATIVE); PH,URINE 5.5 (5-9); PROTEIN,URINE 2+ (NEGATIVE); URINE, BLOOD 3+ (NEGATIVE); UROBILINOGEN,URINE 0.2 (0.2)
[2023-10-27 20:39] LABS: BACTERIA,URINE TRACE (NOT PRESENT); SQUAMOUS EPITHELIAL CELL,UR 0-2 (0-5); URINE RBC, MICROSCOPIC 20-30 (0-2)
[2023-10-27] MEDS: XOPENEX 1.25 MG NEB STA (21:23)
--- NOTE | 2023-10-27 21:29 | CT ---
EXAM: CTA OF THE CHEST. History: Dyspnea, elevated D-dimer. Comparison: Chest radiograph 10/27/2023 Technique: Multiplanar CT images through the thorax were obtained following administration of IV con trast. MIP images and 3-D reconstructions were also acquired. FINDINGS: Heart is borderline enlarged. No pericardial effusion. Great vessels are unremarkable. There is motion artifact which degrades image quality. No pulmonary arterial filling defects are alfredo ntified within limitations of the motion artifact. No pathologic adenopathy. 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 Multifocal left lung consolidation. Trace left pl eural effusion. No pneumothorax. No suspicious lung masses or lung nodules. Within the visualized upper abdomen, the liver is fatty. The no acute osseous abnormalities. Impression: 1. No pulmonary embolism. 2. Multifocal left lung pneumonia All CT scans are performed using dose optimization techniques as appropriate to the performed exam an d include at least one of the following: Automated exposure control, adjustment of the mA and/or kV according t o size, and the use of iterative reconstruction technique.
[2023-10-27] MEDS: MORPHINE 2 MG/ML SYRINGE IVP ONE (21:36)
[2023-10-27] MEDS ORDERED: SODIUM CHLORIDE 1,000 ML IV ONE (22:07)
[2023-10-27] MEDS ORDERED: ZOFRAN 4 MG/2 ML IVP PRN (22:12)
[2023-10-27] MEDS ORDERED: ROBITUSSIN DM SYRUP PO PRN (22:12)
[2023-10-27] MEDS ORDERED: TESSALON PERLES PO PRN (22:12)
[2023-10-27] MEDS ORDERED: NORCO 10-325 PO PRN (22:33)
[2023-10-27 23:37] VITALS: BMI 31.6
[2023-10-27] MEDS: SOLU-MEDROL 40 MG IVP SCH (23:45)
[2023-10-27] MEDS: DOXY-100 100 MG in SODIUM CHLORIDE 100ML 100 ML IV SCH (23:53)
[2023-10-28] MEDS: DUONEB NEB PRN (00:30)
[2023-10-28] MEDS: LACTATED RINGERS 1,000 ML IV SCH (01:48)
[2023-10-28] MEDS: HUMALOG SUBCUT PRN ×2 (05:39→11:35)
[2023-10-28 06:13] LABS: BASOPHILS % (AUTO) 0.1 % (0.0-3.0); HEMATOCRIT 40.9 % (42.0-52.0); IMMATURE GRANULOCYTE # (AUTO) 0.1 (0.0-1.0); IMMATURE GRANULOCYTE % (AUTO) 0.6 % (0.0-5.0); LYMPHOCYTES # (AUTO) 0.8 K/uL (0.60-3.4); LYMPHOCYTES % (AUTO) 7.1 (10.0-50.0); MEAN CORPUSCULAR HEMOGLOBIN 30.4 pg (27.0-31.0); MEAN CORPUSCULAR HGB CONC 31.8 (31.8-35.4); MEAN CORPUSCULAR VOLUME 95.8 fl (80.0-94.0); MONOCYTES # (AUTO) 0.4 K/uL (0.4-2.0); MONOCYTES % (AUTO) 4.1 (0-10); NEUTROPHILS # (AUTO) 9.3 K/ul (2.0-6.9); NEUTROPHILS % (AUTO) 88.1 % (42.2-75.2); PLATELET COUNT 142 10^3/uL (140-440); RDW COEFFICIENT OF VARIATION 13.4 % (11.6-14.8); RED BLOOD COUNT 4.27 10^6/ul (4.70-6.10)
[2023-10-28 06:28] LABS: ALANINE AMINOTRANSFERASE 18.5 U/L (0-50); ALBUMIN 3.32 g/dL (3.5-5.0); ALKALINE PHOSPHATASE 39.9 U/L (56-119); ASPARTATE AMINO TRANSFERASE 19.7 U/L (17-59); BILIRUBIN,TOTAL 0.62 mg/dL (0.2-1.3); BLOOD UREA NITROGEN 15.1 mg/dL (9-20); CALCIUM 8.35 mg/dL (8.4-10.2); CARBON DIOXIDE 18.8 mmol/L (22-30.0); CHLORIDE 102.9 mmol/L (98-107); CREATININE 0.7 mg/dL (0.60-1.10); GLUCOSE 256.3 mg/dL (74-106); POTASSIUM 4.15 mmol/L (3.5-5.1); SODIUM 131.1 mmol/L (134.5-145); TOTAL PROTEIN 6.34 g/dL (6.3-8.2)
[2023-10-28] MEDS: COZAAR PO SCH (08:21)
[2023-10-28] MEDS: PRAVACHOL PO SCH (08:21)
[2023-10-28] MEDS: ROCEPHIN 1 GM/50 ML D5W 1 GM/50 ML BAG IV SCH (08:22)
--- NOTE | 2023-10-28 10:02 | PCM ---
Date of Service Date Seen by Provider: 10/28/23 Time Seen by Provider: 09:00 Admit Day/Time Admission Date: 10/27/23 Admission Time: 22:25 Reason for Admission Chief Complaint: ACUTE DYSPNEA, PNEUMONIA, ACUTE BRONCHOSPASM Hospital Provider Hospital Provider: SUNITA CONNOLLY PA-C, [facility] Primary Care Physician Primary Care Physician: MAHNAZ ESTRADA MD History of Present Illness History of Present Illness: Patient is a 58 year old male with pmhx of tobacco use, aortic stenosis, LINCOLN, hyperlipidemia, CHF, hypertension, DM, who presents to the ER with worsening malaise, weakness, diarrhea, sob, cough, headache, and fever. Patient was treated with z andrey and steroids on 10/23, presented in ER on 10/24 for worsening symptoms, augmentin was added. Patient continued to feel worse. Returned to ER with fever of 104, tachycardic, tachypneic, and O2 sat in the 80s. He was placed on 2L. He was given multiple breathing treatments and abx. D dimer was elevated. CTA chest negative for PE, but does show left sided multifocal pneumonia. CT head negative. On my evaluation this morning, patient is feeling much better. Breathing improved. Afebrile overnight. Case Discussed With Case Discussed With: Patient's case was discussed with the ER Physicians, Dr. Aparicio. [facility] Medical History Cochlear implant in place Z96.21 - Cochlear implant status (ICD-10) Surgical History History of carpal tunnel repair Dr. Doherty at [place] 04/2022 Z98.890 - Other specified postprocedural states (ICD-10) History of ear, nose, and throat (ENT) surgery EAR SURGERY Z98.890 - Other specified postprocedural states (ICD-10) Status post tonsillectomy Z90.89 - Acquired absence of other organs (ICD-10) Status post hernia repair Z98.890 - Other specified postprocedural states (ICD-10) Family History Mother Cancer Hypertension FATHER Cerebrovascular accident Social History Smoking and tobacco status: Current some day smoker Tobacco: How many years used: 40 (has not smoked in 6 days) Alcohol intake: never Substance use type: does not use Special kaleigh needs: No Agree to transfusion: Yes Adopted: No Caregiver/support person: No Foster care: No Household members: spouse Housing: house Marital status: M Lives independently: Yes Number of children: 4 service: Yes shelter: No History of recent travel: No Do you think of yourself as: straight/heterosexual Current gender identity: male Seatbelt use: always Drives intoxicated or rides with intoxicated driver helper: No Water heater temperature set < 120 degrees: Yes Working smoke detector in home: Yes Fire extinguisher in home: Yes Carbon monoxide detector in home: Yes Allergies Allergies Allergy/AdvReac Type Severity Reaction Status Date / Time No Known Allergies Allergy Verified 10/27/23 18:09 Current Medications Home Medications metformin 1,000 mg tablet See Rx Instructions .Route .COMPLEX #60 tabs 10/13/22 [Rx Confirmed 10/27/23 Last Taken Unknown] losartan 100 mg tablet See Rx Instructions .Route .COMPLEX #30 tabs 10/20/22 [Rx Confirmed 10/27/23 Last Taken Unknown] pravastatin 40 mg tablet See Rx Instructions .Route .COMPLEX #30 tabs 10/20/22 [Rx Confirmed 10/27/23 Last Taken Unknown] diclofenac sodium 75 mg tablet,delayed release 75 mg PO ONCE 01/15/23 [History Confirmed 10/27/23 Last Taken Unknown] hydrocodone 10 mg-acetaminophen 325 mg tablet 1 tab PO BID PRN pain #50 tabs 10/11/23 [Rx Confirmed 10/27/23 Last Taken Unknown] azithromycin 250 mg tablet (Zithromax Z-Andrey) See Rx Instructions PO .COMPLEX #6 tabs 10/24/23 [Rx Confirmed 10/27/23 Last Taken Unknown] prednisone 10 mg tablet 10 mg PO BID 5 days #10 tabs 10/24/23 [Rx Confirmed 10/27/23 Last Taken Unknown] albuterol sulfate 90 mcg/actuation breath activated powder inhaler 2 inh inhalation Q4-6H PRN shortness of breath or wheezing #1 ea 10/25/23 [Rx Confirmed 10/27/23 Last Taken Unknown] amoxicillin 875 mg-potassium clavulanate 125 mg tablet 1 tab PO BID #10 tabs 10/25/23 [Rx Confirmed 10/27/23 Last Taken Unknown] Home Acetaminophen (Acetaminophen 325 Mg Tablet) 650 mg PO Q4H PRN PRN Reason: Mild Pain Hydrocodone Bitart/Acetaminophen (Hydrocodone Bit/Acetaminophen 10/325 Mg Tablet) 1 tab PO BID PRN PRN Reason: MODERATE PAIN Albuterol/Ipratropium (Ipratropium/Albuterol Vial.Neb) 3 ml NEB RTQ4H PRN PRN Reason: Wheezing Last Admin: 10/28/23 10:08 Dose: 3 ml Benzonatate (Benzonatate 100 Mg Capsule) 100 mg PO TID PRN PRN Reason: Cough Enoxaparin Sodium (Enoxaparin Sodium 40 Mg/0.4 Ml Syr) 40 mg SUBCUT DAILY [facility] Last Admin: 10/28/23 11:35 Dose: 40 mg Guaifenesin/Dextromethorphan (Guaifenesin/Dextromethorphan 200/20 Mg/10 Ml Cup) 5 ml PO Q4H PRN PRN Reason: Cough Doxycycline Hyclate 100 mg/ (Sodium Chloride) 100 mls @ 50 mls/hr IV Q12HR [facility] Stop: 10/30/23 22:14 Last Admin: 10/28/23 09:24 Dose: 50 mls/hr Lactated Ringer's (Lactated Ringers) 1,000 mls @ 100 mls/hr IV .Q10H [facility] Last Admin: 10/28/23 01:48 Dose: 100 mls/hr CEFTRIAXONE/D5W 1 GM PREMIX (Rocephin 1 Gm/50 Ml D5w) 1 gm in 50 mls @ 100 mls/hr IV DAILY [facility] Stop: 10/31/23 08:59 Last Admin: 10/28/23 08:22 Dose: 100 mls/hr Insulin Human Lispro (Insulin Lispro 100 Unit/Ml Vial) 0 unit SUBCUT PRN PRN; Protocol PRN Reason: Hyperglycemia Last Admin: 10/28/23 11:35 Dose: 7 unit Losartan Potassium (Losartan Potassium 100 Mg Tablet) 100 mg PO DAILY [facility] Last Admin: 10/28/23 08:21 Dose: 100 mg Methylprednisolone Sodium Succinate (Methylprednisolone Sod Succ/Pf 40 Mg/Ml Vial) 40 mg IVP Q8HR [facility] Last Admin: 10/28/23 05:21 Dose: 40 mg Ondansetron HCl (Ondansetron Hcl/Pf 4 Mg/2 Ml Sdv) 4 mg IVP Q6H PRN PRN Reason: Nausea / Vomiting Pravastatin Sodium (Pravastatin Sodium 40 Mg Tablet) 40 mg PO DAILY [facility] Last Admin: 10/28/23 08:21 Dose: 40 mg Discontinued Medications Albuterol/Ipratropium (Ipratropium/Albuterol Vial.Neb) 3 ml NEB ONCE STA Stop: 10/27/23 18:33 Last Admin: 10/27/23 19:36 Dose: 3 ml Albuterol/Ipratropium (Ipratropium/Albuterol Vial.Neb) 3 ml NEB ONCE STA Stop: 10/27/23 20:03 Last Admin: 10/27/23 20:06 Dose: 3 ml Sodium Chloride (Sodium Chloride) 1,000 mls @ 1,000 mls/hr IV BOLUS ONE Stop: 10/27/23 19:26 Last Infusion: 10/27/23 20:06 Dose: Infused CEFTRIAXONE/D5W 2 GM PREMIX (Rocephin 2 Gm/50 Ml D5w) 2 gm in 50 mls @ 100 mls/hr IV ONCE ONE Stop: 10/27/23 19:00 Last Admin: 10/27/23 19:07 Dose: 100 mls/hr Sodium Chloride (Sodium Chloride) 1,000 mls @ 500 mls/hr IV .Q2H ONE Stop: 10/27/23 23:53 Last Admin: 10/27/23 22:18 Dose: Not Given Sodium Chloride (Sodium Chloride) 1,000 mls @ 1,000 mls/hr IV BOLUS ONE Stop: 10/27/23 23:06 Last Admin: 10/27/23 22:18 Dose: 1,000 mls/hr Ibuprofen (Ibuprofen 600 Mg Tablet) 600 mg PO ONCE ONE Stop: 10/27/23 18:28 Last Admin: 10/27/23 19:05 Dose: 600 mg Insulin Human Lispro (Insulin Lispro 100 Unit/Ml Vial) 0 unit SUBCUT PRN PRN; Protocol PRN Reason: Hyperglycemia Last Admin: 10/28/23 05:39 Dose: 2 unit Levalbuterol HCl (Levalbuterol Hcl 1.25 Mg/3 Ml Vial.Neb) 1.25 mg NEB ONCE STA Stop: 10/27/23 21:14 Last Admin: 10/27/23 21:23 Dose: 1.25 mg Morphine Sulfate (Morphine Sulfate 2 Mg/Ml Syringe) 2 mg IVP ONCE ONE Stop: 10/27/23 21:21 Last Admin: 10/27/23 21:36 Dose: 2 mg Opioid Naive vs. Tolerant Does Patient Take Opioids?: No Is Patient Opioid Naive?: Yes What is Opioid Naive?: *Opioid Naive implies the patient is not already taking opioids or not chronically receiving opioids on a daily basis. *PRN dosing is not "usually" associated with tolerance. *Patients are at higher risk of over-sedation and aspiration. Is Patient Opioid Tolerant?: No What is Opioid Tolerant?: *Opioid Tolerance implies less than the expected response to an opioid. *Acquired tolerance is defined by the patient taking 60mg of oral morphine daily (or equianalgesic dose of another opioid) for 1 week or more. *Often associated with chronic pain. *May take more than usual dose to achieve desired pain control. Review of Systems Constitutional: Reports Fever, Fatigue and Weakness Head: Reports Normocephalic and Atraumatic Cardiovascular: Denies Chest pain, Chest Pressure or Edema Respiratory: Reports Cough, Shortness of air and Wheeze Gastrointestinal: Reports Diarrhea; Denies Nausea, Vomiting, Abdominal pain or Melena Genitourinary: Denies Dysuria Dermatologic: Denies Rashes Neurological: Reports Headache; Denies Weakness Physical examination Most Recent Vital Signs: Most Recent Vital Signs Temperature 98.1 F 10/28/23 05:19 Temperature Source Oral 10/28/23 05:19 Temperature Source Infrared 10/27/23 21:35 Pulse Rate 80 10/28/23 05:19 Respiratory Rate 18 10/28/23 05:19 Blood Pressure 114/64 10/28/23 05:19 Blood Pressure Mean 80 10/28/23 05:19 Blood Pressure Right Arm 111/65 10/27/23 23:17 Blood Pressure Location Left Arm 10/28/23 05:19 Blood Pressure Position Supine 10/28/23 05:19 O2 Sat by Pulse Oximetry 97 10/28/23 05:30 Oxygen Delivery Method Room Air 10/28/23 08:00 Oxygen Flow Rate 4 10/28/23 05:30 Height 5 ft 10 in 10/27/23 23:17 Weight 220 lb 9 oz 10/27/23 23:17 Telemetry Type Remote Telemetry 10/28/23 07:00 Telemetry Monitoring Continues 10/28/23 07:00 Telemetry Heart Rate 79 10/28/23 07:00 EKG KS Interval 0.16 10/28/23 07:00 EKG QRS Interval 0.08 10/28/23 07:00 Telemetry Strip Reading NSR 10/28/23 07:00 Appearance: Positive No Apparent Distress and Alert and Oriented x3 Skin: Negative Rashes HEENT: Positive Normocephalic and Atraumatic Neck: Positive Supple and Midline Trachea Chest/Lungs: Positive Symmetrical With Equal Breath Sounds and Wheezes (mild, ben ) Heart: Positive RRR and Murmur (4/6 ) GI/: Positive Soft, Nontender, Bowel Sounds Normal and No Distention Extremities: Negative Edema Neurological: Positive Cranial Nerves Intact, Alert, Oriented and Muscle Strength 5/5 in Upper and Lower Extremities Bilaterally Psychiatric: Positive Oriented x4, Appropriate Mood and Appropriate Affect Labs This Visit Labs This Visit: Labs This Visit 10/27/23 10/27/23 10/27/23 18:27 18:50 19:07 WBC 10.76 H RBC 4.35 L Hgb 13.2 L Hct 39.3 L MCV 90.3 MCH 30.3 MCHC 33.6 RDW Coeff of Chet 13.1 Plt Count 172 Immature Gran % (Auto) 0.8 Neut % (Auto) 80.0 H Lymph % (Auto) 9.9 L [place] % (Auto) 9.2 Eos % (Auto) 0.0 Baso % (Auto) 0.1 Neut # (Auto) 8.6 H Lymph # (Auto) 1.1 [place] # (Auto) 1.0 Eos # (Auto) 0.0 Baso # (Auto) 0.0 Immature Gran # (Auto) 0.1 Puncture Site Rr Base Excess -2.6 L O2 Saturation 89.8 L ABG pH 7.47 H ABG pCO2 29.0 L ABG pO2 54.0 L* ABG HCO3 21.1 ABG Total CO2 22.0 Mars Test Pos Hemoglobin 1.2 Oxyhemoglobin 91.2 L Carboxyhemoglobin 1.5 Total Hemoglobin 13.7 O2 Delivery Device Ra FiO2 % 21.0 Sodium 127.3 L Potassium 3.78 Chloride 99.7 Carbon Dioxide 19.4 L Anion Gap 11.98 BUN 13.5 Creatinine 0.76 Estimated GFR (MDRD) 105.00 BUN/Creatinine Ratio 17.76 Glucose 198.0 H Lactic Acid 1.29 Calcium 8.55 Total Bilirubin 0.81 AST 31.1 ALT 19.3 Alkaline Phosphatase 42.9 L Troponin I 0.015 Total Protein 6.62 Albumin 3.56 Globulin 3.06 Albumin/Globulin Ratio 1.16 Procalcitonin D-Dimer 2653.74 H Urine Color Urine Clarity Urine pH Ur Specific [place] Urine Protein Urine Glucose (UA) Urine Ketones Urine Blood Urine Nitrite Urine Bilirubin Urine Urobilinogen Ur Leukocyte Esterase Urine Microscopic RBC Urine Microscopic WBC Ur Squamous Epith Cells Urine Bacteria Adenovirus (PCR) Not detected B. pertussis DNA (PCR) Not detected B.parapertussis DNA PCR Not detected C. pneumoniae DNA (PCR) Not detected Coronavirus OC43 (PCR) Not detected Coronavirus HKU1 (PCR) Not detected Coronavirus 229E (PCR) Not detected Coronavirus NL63 (PCR) Not detected Human Metapneumovir PCR Not detected Influenza Type A (PCR) Not detected Influenza B (RT-PCR) Not detected M. pneumoniae (PCR) Not detected Parainfluenza 1 (PCR) Not detected Parainfluenza 2 (PCR) Not detected Parainfluenza 3 (PCR) Not detected Parainfluenza 4 (PCR) Not detected RSV (PCR) Not detected Entero/Rhino (PCR) Not detected SARS-CoV-2 (PCR) Not detected 10/27/23 10/28/23 20:23 06:10 WBC 10.50 H RBC 4.27 L Hgb 13.0 L Hct 40.9 L MCV 95.8 H D MCH 30.4 MCHC 31.8 RDW Coeff of Chet 13.4 Plt Count 142 Immature Gran % (Auto) 0.6 Neut % (Auto) 88.1 H Lymph % (Auto) 7.1 L [place] % (Auto) 4.1 Eos % (Auto) 0.0 Baso % (Auto) 0.1 Neut # (Auto) 9.3 H Lymph # (Auto) 0.8 [place] # (Auto) 0.4 Eos # (Auto) 0.0 Baso # (Auto) 0.0 Immature Gran # (Auto) 0.1 Puncture Site Base Excess O2 Saturation ABG pH ABG pCO2 ABG pO2 ABG HCO3 ABG Total CO2 Mars Test Hemoglobin Oxyhemoglobin Carboxyhemoglobin Total Hemoglobin O2 Delivery Device FiO2 % Sodium 131.1 L Potassium 4.15 Chloride 102.9 Carbon Dioxide 18.8 L Anion Gap 13.55 BUN 15.1 Creatinine 0.70 Estimated GFR (MDRD) 115.00 BUN/Creatinine Ratio 21.57 Glucose 256.3 H D Lactic Acid Calcium 8.35 L Total Bilirubin 0.62 AST 19.7 ALT 18.5 Alkaline Phosphatase 39.9 L Troponin I Total Protein 6.34 Albumin 3.32 L Globulin 3.02 Albumin/Globulin Ratio 1.09 Procalcitonin 0.24 H D-Dimer Urine Color Yellow Urine Clarity Clear Urine pH 5.5 Ur Specific [place] >=1.030 Urine Protein 2+ H Urine Glucose (UA) Trace H Urine Ketones Negative Urine Blood 3+ H Urine Nitrite Negative Urine Bilirubin Negative Urine Urobilinogen 0.2 Ur Leukocyte Esterase Negative Urine Microscopic RBC 20-30 Urine Microscopic WBC 2-5 Ur Squamous Epith Cells 0-2 Urine Bacteria Trace Adenovirus (PCR) B. pertussis DNA (PCR) B.parapertussis DNA PCR C. pneumoniae DNA (PCR) Coronavirus OC43 (PCR) Coronavirus HKU1 (PCR) Coronavirus 229E (PCR) Coronavirus NL63 (PCR) Human Metapneumovir PCR Influenza Type A (PCR) Influenza B (RT-PCR) M. pneumoniae (PCR) Parainfluenza 1 (PCR) Parainfluenza 2 (PCR) Parainfluenza 3 (PCR) Parainfluenza 4 (PCR) RSV (PCR) Entero/Rhino (PCR) SARS-CoV-2 (PCR) Imaging Imaging: EXAM: CHEST RADIOGRAPH (1 VIEW) TECHNIQUE: Frontal Chest Radiograph. HISTORY: Cough, dyspnea COMPARISON: 10/25/2023. FINDINGS: Lines, Tubes, Devices: None Lungs and Pleura: Left mid and lower lung opacities have increased. The lungs are otherwise clear. No pleural effusion or pneumothorax. Cardiac silhouette: Normal. Bones: No acute abnormality. IMPRESSION: Increased left lung pneumonia. EXAM: CTA OF THE CHEST. History: Dyspnea, elevated D-dimer. Comparison: Chest radiograph 10/27/2023 Technique: Multiplanar CT images through the thorax were obtained following administration of IV contrast. MIP images and 3-D reconstructions were also acquired. FINDINGS: Heart is borderline enlarged. No pericardial effusion. Great vessels are unremarkable. There is motion artifact which degrades image quality. No pulmonary arterial filling defects are identified within limitations of the motion artifact. No pathologic adenopathy. 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 Multifocal left lung consolidation. Trace left pleural effusion. No pneumothorax. No suspicious lung masses or lung nodules. Within the visualized upper abdomen, the liver is fatty. The no acute osseous abnormalities. Impression: 1. No pulmonary embolism. 2. Multifocal left lung pneumonia EXAM: CT HEAD WITHOUT CONTRAST HISTORY: Headache COMPARISON: None TECHNIQUE: Serial axial images of the brain were obtained from the skull base to the vertex without IV contrast. FINDINGS: The ventricles, cisterns and sulci are normal. The chavira-white matter junction is maintained. No midline shift or mass is identified. There is no abnormal intra or extra-axial fluid collection. The paranasal sinuses and mastoid air cells are clear. The osseous calvarium is intact. IMPRESSION: No acute intracranial abnormality or hemorrhage. Review Statement Review Statement: I have independently reviewed and interpreted the labs/EKGs/imaging that were ordered by the ER provider. I have reviewed all outside records that are available currently in our EMR including imaging/notes/labs from previous visits. Plan Plan: 1. Sepsis in setting of CAP - Pt was febrile, tachycardic, and increased RR upon arrival. Cont abx, steroids, nebs. Awaiting blood cultures. 2. CAP, left, multifocal, worsening - Failed outpatient antibiotics. Rocephin + doxy. Solumedrol, nebs, O2 wean when able. MRSA, legionella, and strep pneumo ordered. 3. Acute hypoxic respiratory failure in setting of CAP - PO2 was 54, wean O2 when able. Improved today. 4. DMT2 - Hold metformin. Diabetic diet. Sliding scale insulin. Accuchecks achs. 5. Hypertension - Cont home meds 6. LINCOLN - Doesn't use CPAP. Sleep study from 2016 rec cpap. Would benefit from repeat study outpatient. 7. Hyperlipidemia - Cont home meds DVT Prophylaxis: Lovenox Time Spent: Greater than 80 minutes spent with patient, 50% of the time spent with this patient was devoted to counseling and coordination of care. [facility]annin minutes spent discussing advance care planning. Smoking Cessation: 3 minutes spent discussing smoking cessation. Admit to: Inpatient Discussed Plan of Care with Dr. Mendel Estrada. Medications Medication Orders: Medications Ordered Category Date Time Status Acetaminophen [Tylenol] Meds 10/27/23 22:12 Active 650 mg PO Q4H PRN Benzonatate [Tessalon Perles] Meds 10/27/23 22:12 Active 100 mg PO TID PRN Ceftriaxone/D5w 1 gm Premix [Rocephin 1 gm/50 ml D5w] Meds 10/28/23 09:00 Active 1 gm in 50 ml IV DAILY Doxycycline Hyclate Inj [Doxy-100] 100 mg Meds 10/27/23 22:15 Active 0.9 % Sodium Chloride [Sodium Chloride 100Ml] 100 ml IV Q12HR Guaifenesin/Dextromethorphan [Robitussin Dm Syrup] Meds 10/27/23 22:12 Active 5 ml PO Q4H PRN Hydrocodone Bit/Acetaminophen [[place] 10-325] Meds 10/27/23 22:33 Active 1 tab PO BID PRN Insulin Lispro [Humalog] Meds 10/28/23 08:27 Active See Protocol SUBCUT PRN PRN Ipratropium/Albuterol Neb [Duoneb] Meds 10/27/23 22:12 Active 3 ml NEB RTQ4H PRN Losartan Potassium [Cozaar] Meds 10/28/23 09:00 Active 100 mg PO DAILY Methylprednisolone Sod Succ/Pf [Solu-Medrol 40 mg] Meds 10/27/23 22:15 Active 40 mg IVP Q8HR Ondansetron HCl/Pf [Zofran 4 mg/2 ml] Meds 10/27/23 22:12 Active 4 mg IVP Q6H PRN Pravastatin Sodium [Pravachol] Meds 10/28/23 09:00 Active 40 mg PO DAILY Ringers Lactated Solution [Lactated Ringers] 1,000 ml Meds 10/27/23 22:30 Active IV 100 mls/hr
[2023-10-28] MEDS: LOVENOX SUBCUT SCH (11:35)
[2023-10-28] MEDS: TYLENOL PO PRN (14:12)
[2023-10-29 05:19] LABS: BASOPHILS % (AUTO) 0.2 % (0.0-3.0); HEMATOCRIT 36.3 % (42.0-52.0); HEMOGLOBIN 12.1 g/dl (14.0-18.0); IMMATURE GRANULOCYTE # (AUTO) 0.1 (0.0-1.0); LYMPHOCYTES # (AUTO) 0.7 K/uL (0.60-3.4); LYMPHOCYTES % (AUTO) 5.5 (10.0-50.0); MEAN CORPUSCULAR HGB CONC 33.3 (31.8-35.4); MEAN CORPUSCULAR VOLUME 90.1 fl (80.0-94.0); MONOCYTES # (AUTO) 0.7 K/uL (0.4-2.0); MONOCYTES % (AUTO) 5.8 (0-10); NEUTROPHILS # (AUTO) 10.4 K/ul (2.0-6.9); NEUTROPHILS % (AUTO) 87.5 % (42.2-75.2); PLATELET COUNT 190 10^3/uL (140-440); RDW COEFFICIENT OF VARIATION 13.3 % (11.6-14.8); RED BLOOD COUNT 4.03 10^6/ul (4.70-6.10); WHITE BLOOD COUNT 11.92 K/ul (4.2-10.2)
[2023-10-29 05:34] LABS: ALANINE AMINOTRANSFERASE 42.6 U/L (0-50); ALBUMIN 3.03 g/dL (3.5-5.0); ALKALINE PHOSPHATASE 47.6 U/L (56-119); ASPARTATE AMINO TRANSFERASE 47.7 U/L (17-59); BILIRUBIN,TOTAL 0.46 mg/dL (0.2-1.3); BLOOD UREA NITROGEN 16.3 mg/dL (9-20); CALCIUM 8.97 mg/dL (8.4-10.2); CARBON DIOXIDE 21.6 mmol/L (22-30.0); CHLORIDE 104.2 mmol/L (98-107); CREATININE 0.65 mg/dL (0.60-1.10); GLUCOSE 275.2 mg/dL (74-106); POTASSIUM 3.81 mmol/L (3.5-5.1); SODIUM 132.7 mmol/L (134.5-145); TOTAL PROTEIN 5.97 g/dL (6.3-8.2)
--- NOTE | 2023-10-29 09:35 | PCM.PROG ---
Date/Time Seen Date Seen by Provider: 10/29/23 Time Seen by Provider: 08:45 Provider [facility] Chief Complaint Chief Complaint: ACUTE DYSPNEA, PNEUMONIA, ACUTE BRONCHOSPASM Subjective Subjective: Feeling much better today. Oxygen off at this time. Had fever yesterday of 103. Mild tachycardic in upper 100s. Objective Appearance: Positive No Apparent Distress and Alert and Oriented x3 Chest/Lungs: Positive Symmetrical With Equal Breath Sounds and Rhonci (L lung) Heart: Positive RRR and Pulses Normal GI/: Positive Soft, Nontender and Bowel Sounds Normal Musculoskeletal: Positive Not Examined Neurological: Positive Sensation Intact, Motor intact, Alert, Oriented and Muscle Strength 5/5 in Upper and Lower Extremities Bilaterally Vital Signs Vital Signs: Vital Signs: Last 24 Hours 10/28/23 10:00 10/28/23 13:00 10/28/23 14:00 Temperature 103 F H Temperature Source Temporal Artery Scan Pulse Rate 106 H Respiratory Rate 22 H Blood Pressure 113/59 L Blood Pressure Mean 77 Blood Pressure Location Left Arm Blood Pressure Position Sitting O2 Sat by Pulse Oximetry 93 L 97 Oxygen Delivery Method Room Air Room Air Oxygen Flow Rate Fraction of Inspired Oxygen (FIO2) Telemetry Type Remote Telemetry Telemetry Monitoring Continues Telemetry Heart Rate 106 H Telemetry SPO2 93 EKG ME Interval 0.16 EKG QRS Interval 0.08 Telemetry Strip Reading Sinus tach 10/28/23 14:00 10/28/23 15:26 10/28/23 19:00 Temperature 99.9 F Temperature Source Temporal Artery Scan Pulse Rate Respiratory Rate Blood Pressure Blood Pressure Mean Blood Pressure Location Blood Pressure Position O2 Sat by Pulse Oximetry Oxygen Delivery Method Room Air Nasal Cannula Oxygen Flow Rate 2 Fraction of Inspired Oxygen (FIO2) Telemetry Type Remote Telemetry Telemetry Monitoring Continues Telemetry Heart Rate 100 Telemetry SPO2 93 EKG ME Interval 0.14 EKG QRS Interval 0.06 Telemetry Strip Reading SR 10/28/23 19:14 10/28/23 19:48 10/28/23 21:03 Temperature 98.3 F Temperature Source Oral Pulse Rate 100 Respiratory Rate 18 Blood Pressure 116/64 Blood Pressure Mean 81 Blood Pressure Location Left Arm Blood Pressure Position Supine O2 Sat by Pulse Oximetry 92 L Oxygen Delivery Method Room Air Room Air Nasal Cannula Oxygen Flow Rate 2 2 Fraction of Inspired Oxygen (FIO2) 92 Telemetry Type Telemetry Monitoring Telemetry Heart Rate Telemetry SPO2 EKG ME Interval EKG QRS Interval Telemetry Strip Reading 10/29/23 01:00 10/29/23 05:07 10/29/23 05:30 Temperature 97.8 F Temperature Source Temporal Artery Scan Pulse Rate 104 H Respiratory Rate 20 Blood Pressure 110/65 Blood Pressure Mean 80 Blood Pressure Location Right Arm Blood Pressure Position Supine O2 Sat by Pulse Oximetry 93 L Oxygen Delivery Method Room Air Room Air Oxygen Flow Rate Fraction of Inspired Oxygen (FIO2) Telemetry Type Remote Telemetry Telemetry Monitoring Continues Telemetry Heart Rate 71 Telemetry SPO2 92 L EKG ME Interval 0.18 EKG QRS Interval 0.06 Telemetry Strip Reading SR 10/29/23 07:00 10/29/23 08:00 10/29/23 08:51 Temperature Temperature Source Pulse Rate Respiratory Rate 19 Blood Pressure Blood Pressure Mean Blood Pressure Location Blood Pressure Position O2 Sat by Pulse Oximetry 94 L Oxygen Delivery Method Nasal Cannula Room Air Oxygen Flow Rate 2 Fraction of Inspired Oxygen (FIO2) Telemetry Type Remote Telemetry Telemetry Monitoring Continues Telemetry Heart Rate 91 Telemetry SPO2 94 EKG ME Interval 0.16 EKG QRS Interval 0.08 Telemetry Strip Reading SR Lab Results Lab Results: Lab Results: Last 24 Hours 10/29/23 05:01 WBC 11.92 H RBC 4.03 L Hgb 12.1 L Hct 36.3 L MCV 90.1 D MCH 30.0 MCHC 33.3 RDW Coeff of Chet 13.3 Plt Count 190 D Immature Gran % (Auto) 1.0 Neut % (Auto) 87.5 H Lymph % (Auto) 5.5 L [place] % (Auto) 5.8 Eos % (Auto) 0.0 Baso % (Auto) 0.2 Neut # (Auto) 10.4 H Lymph # (Auto) 0.7 [place] # (Auto) 0.7 Eos # (Auto) 0.0 Baso # (Auto) 0.0 Immature Gran # (Auto) 0.1 Sodium 132.7 L Potassium 3.81 Chloride 104.2 Carbon Dioxide 21.6 L Anion Gap 10.71 BUN 16.3 Creatinine 0.65 Estimated GFR (MDRD) 125.00 BUN/Creatinine Ratio 25.07 Glucose 275.2 H Calcium 8.97 Total Bilirubin 0.46 AST 47.7 D ALT 42.6 Alkaline Phosphatase 47.6 L Total Protein 5.97 L Albumin 3.03 L Globulin 2.94 Albumin/Globulin Ratio 1.03 Procalcitonin 0.20 H Additional Comments Additional Comments: I have independently reviewed and interpreted the labs/EKGs/imaging ordered during this hospital stay. I have reviewed outside records that are available in our EMR that pertain to medical stay including imaging/notes/labs from previous visits. Active Medications Active Medications: Medications Generic Name Dose Route Start Last Admin Trade Name Freq PRN Reason Stop Dose Admin Acetaminophen 650 mg 10/27/23 22:12 10/28/23 20:07 Acetaminophen 325 Mg Tablet PO 650 mg Q4H PRN Administration Mild Pain Hydrocodone Bitart/Acetaminophen 1 tab 10/27/23 22:33 Hydrocodone Bit/Acetaminophen 10/325 Mg Tablet PO BID PRN MODERATE PAIN Albuterol/Ipratropium 3 ml 10/27/23 22:12 10/29/23 08:40 Ipratropium/Albuterol Vial.Neb NEB 3 ml RTQ4H PRN Administration Wheezing Benzonatate 100 mg 10/27/23 22:12 Benzonatate 100 Mg Capsule PO TID PRN Cough Enoxaparin Sodium 40 mg 10/28/23 10:40 10/29/23 08:38 Enoxaparin Sodium 40 Mg/0.4 Ml Syr SUBCUT Not Given DAILY CORKY Guaifenesin/Dextromethorphan 5 ml 10/27/23 22:12 Guaifenesin/Dextromethorphan 200/20 Mg/10 Ml Cup PO Q4H PRN Cough Doxycycline Hyclate 100 mg/ 100 mls @ 50 mls/hr 10/27/23 22:15 10/28/23 20:08 Sodium Chloride IV 10/30/23 22:14 50 mls/hr Q12HR CORKY Administration Lactated Ringer's 1,000 mls @ 100 mls/hr 10/27/23 22:30 10/29/23 01:28 Lactated Ringers IV 100 mls/hr .Q10H CORKY Administration CEFTRIAXONE/D5W 1 GM PREMIX 1 gm in 50 mls @ 100 mls/hr 10/28/23 09:00 10/29/23 08:27 Rocephin 1 Gm/50 Ml D5w IV 10/31/23 08:59 100 mls/hr DAILY CORKY Administration Insulin Human Lispro 0 unit 10/28/23 08:27 10/29/23 05:50 Insulin Lispro 100 Unit/Ml Vial SUBCUT 7 unit PRN PRN Administration Hyperglycemia Protocol Losartan Potassium 100 mg 10/28/23 09:00 10/29/23 08:26 Losartan Potassium 100 Mg Tablet PO 100 mg DAILY CORKY Administration Methylprednisolone Sodium Succinate 40 mg 10/27/23 22:15 10/29/23 05:18 Methylprednisolone Sod Succ/Pf 40 Mg/Ml Vial IVP 40 mg Q8HR CORKY Administration Ondansetron HCl 4 mg 10/27/23 22:12 Ondansetron Hcl/Pf 4 Mg/2 Ml Sdv IVP Q6H PRN Nausea / Vomiting Pravastatin Sodium 40 mg 10/28/23 09:00 10/29/23 08:26 Pravastatin Sodium 40 Mg Tablet PO 40 mg DAILY CORKY Administration Plan Plan: 1. Sepsis in setting of CAP - Pt was febrile, tachycardic, and increased RR upon arrival. Cont abx, steroids, nebs. Blood cultures prelim negative x 1 day. 2. CAP, left, multifocal, worsening - Failed outpatient antibiotics. Rocephin + doxy. Solumedrol, nebs, O2 wean when able. Legionella, and strep pneumo ordered. MRSA positive - vancomycin added to regimen today 3. Acute hypoxic respiratory failure in setting of CAP - Improving, off oxygen today 4. DMT2 - Hold metformin. Diabetic diet. Sliding scale insulin. Accuchecks achs. 5. Hypertension - Cont home meds 6. LINCOLN - Doesn't use CPAP. Sleep study from 2016 rec cpap. Would benefit from repeat study outpatient. 7. Hyperlipidemia - Cont home meds DVT Prophylaxis: Lovenox Review Statement Review Statement: I have personally discussed and reviewed the patient's visit/currently labs/imaging/decision making with Dr. Estrada, my supervising attending. Greater that 50 minutes spent with patient, 50% of the time spent with this patient was devoted to counseling and coordination of care.
[2023-10-29] MEDS: FLORASTOR PO SCH (12:02)
[2023-10-29] MEDS: VANCOMYCIN 1.25 GM/250 ML BAG 1.25 GM/250 ML BAG IV SCH (13:04)
[2023-10-29 20:29] VITALS: TEMP 97
[2023-10-30 05:01] VITALS: BP 115/77
[2023-10-30 06:00] LABS: BASOPHILS % (AUTO) 0.2 % (0.0-3.0); HEMOGLOBIN 11.9 g/dl (14.0-18.0); IMMATURE GRANULOCYTE # (AUTO) 0.1 (0.0-1.0); IMMATURE GRANULOCYTE % (AUTO) 1.1 % (0.0-5.0); LYMPHOCYTES # (AUTO) 1.2 K/uL (0.60-3.4); LYMPHOCYTES % (AUTO) 9.5 (10.0-50.0); MEAN CORPUSCULAR HEMOGLOBIN 30.4 pg (27.0-31.0); MEAN CORPUSCULAR HGB CONC 33.1 (31.8-35.4); MEAN CORPUSCULAR VOLUME 92.1 fl (80.0-94.0); MONOCYTES # (AUTO) 0.8 K/uL (0.4-2.0); MONOCYTES % (AUTO) 6.4 (0-10); NEUTROPHILS # (AUTO) 10.1 K/ul (2.0-6.9); NEUTROPHILS % (AUTO) 82.8 % (42.2-75.2); PLATELET COUNT 238 10^3/uL (140-440); RDW COEFFICIENT OF VARIATION 13.7 % (11.6-14.8); RED BLOOD COUNT 3.91 10^6/ul (4.70-6.10); WHITE BLOOD COUNT 12.18 K/ul (4.2-10.2)
[2023-10-30 06:11] LABS: ALANINE AMINOTRANSFERASE 59.7 U/L (0-50); ALBUMIN 3.15 g/dL (3.5-5.0); ALKALINE PHOSPHATASE 47.5 U/L (56-119); ASPARTATE AMINO TRANSFERASE 74.1 U/L (17-59); BILIRUBIN,TOTAL 0.5 mg/dL (0.2-1.3); BLOOD UREA NITROGEN 15.5 mg/dL (9-20); CALCIUM 8.79 mg/dL (8.4-10.2); CARBON DIOXIDE 23.1 mmol/L (22-30.0); CHLORIDE 104.1 mmol/L (98-107); CREATININE 0.65 mg/dL (0.60-1.10); GLUCOSE 272.9 mg/dL (74-106); POTASSIUM 3.96 mmol/L (3.5-5.1); SODIUM 135.1 mmol/L (134.5-145); TOTAL PROTEIN 6.07 g/dL (6.3-8.2)
--- NOTE | 2023-10-30 09:24 | DCSUM ---
Admission Date Admission Date: 10/27/23 Discharge Date Discharge Date: 10/30/23 Admission Diagnosis Admission Diagnosis: 1. Sepsis in setting of CAP 2. CAP, left, multifocal 3. Acute hypoxic respiratory failure in setting of CAP 4. DMT2 5. Hypertension 6. LINCOLN 7. Hyperlipidemia Discharge Diagnosis Discharge Diagnosis: 1. Sepsis in setting of CAP - Ruled out 2. CAP, left, multifocal, worsening - Improving 3. Acute hypoxic respiratory failure in setting of CAP - Resolved 4. DMT2 - Chronic, stable 5. Hypertension - Chronic, stable 6. LINCOLN - Noncompliant, sleep study from 2016 rec cpap. Would benefit from repeat study outpatient. 7. Hyperlipidemia - Chronic, stable Hospital Provider Hospital Provider: JEFFRY DESOUZA, [facility] Primary Care Physician Primary Care Physician: MAHNAZ MYRICK MD Summary of History and Physical Summary of History and Physical: Patient is a 58 year old male with pmhx of tobacco use, aortic stenosis, LINCOLN, hyperlipidemia, CHF, hypertension, DM, who presents to the ER with worsening malaise, weakness, diarrhea, sob, cough, headache, and fever. Patient was treated with z andrey and steroids on 10/23, presented in ER on 10/24 for worsening symptoms, augmentin was added. Patient continued to feel worse. Returned to ER with fever of 104, tachycardic, tachypneic, and O2 sat in the 80s. He was placed on 2L. He was given multiple breathing treatments and abx. D dimer was elevated. CTA chest negative for PE, but does show left sided multifocal pneumonia. CT head negative. On my evaluation this morning, patient is feeling much better. Breathing improved. Afebrile overnight. Hospital Course Subjective: Patient met sepsis criteria due to fever, tachycardia, and tachypnea on arrival to ER. Blood cultures negative x 48 hours. O2 sat was down in 80s in ER and was placed on 2L. He was able to be weaned off oxygen yesterday 10/28 and has done well. Breathing treatments and steroids also given. Pneumonia was found to be left sided multifocal. Treated with rocephin and doxy. MRSA swab came back positive and patient was still febrile. Vancomycin was added to regimen yesterday to cover. Sputum culture obtained and showing mixed growth/normal efren. Legionella and strep pneumo pending. Discharged with omni cef and doxy to complete over 3 days to complete 7 days of both. Procal monitored and trended down. Mild leukocytosis noted. Secondary to steroid use. Liver enzymes mildly elevated - likely reactive due to pneumonia. No abdominal pain or symptoms present. Incidental finding of blood in urine. Noted in previous charts as well. Discussed this finding with patient. States that he suffers from kidney stones frequently which could be contributing factor. Discussed possibilities of other causes as well and recommends PCP to follow urine to ensure no further etiologies present. No changes to home medications during stay. 1315 - Legionella found to be positive. Changing rx to levaquin 500 mg bid x 7 days Appearance: Pleasant, No Apparent Distress and Alert HEENT: MMM, Supple and No JVD CVS: No Rubs Abdomen: Soft, Non-Tender and No Distention Respiratory: Other (mild crackles to L lung) Extremities: No Edema Vital Signs: Most Recent Vital Signs Temperature 97 F L 10/30/23 05:00 Temperature Source Temporal Artery Scan 10/30/23 05:00 Temperature Source Infrared 10/27/23 21:35 Pulse Rate 78 10/30/23 05:00 Respiratory Rate 18 10/30/23 05:00 Blood Pressure 115/77 10/30/23 05:00 Blood Pressure Mean 89 10/30/23 05:00 Blood Pressure Right Arm 111/65 10/27/23 23:17 Blood Pressure Location Right Arm 10/30/23 05:00 Blood Pressure Position Supine 10/30/23 05:00 O2 Sat by Pulse Oximetry 95 10/30/23 09:14 Oxygen Delivery Method Room Air 10/30/23 09:14 Oxygen Flow Rate 2 10/29/23 14:00 Fraction of Inspired Oxygen (FIO2) 92 10/28/23 19:14 Height 5 ft 10 in 10/27/23 23:17 Weight 220 lb 9 oz 10/27/23 23:17 Telemetry Type Remote Telemetry 10/30/23 07:00 Telemetry Monitoring Continues 10/30/23 07:00 Telemetry Heart Rate 82 10/30/23 07:00 Telemetry SPO2 93 10/30/23 07:00 EKG HI Interval 0.17 10/30/23 07:00 EKG QRS Interval 0.07 10/30/23 07:00 Telemetry Strip Reading SR 10/30/23 07:00 Imaging: EXAM: CTA OF THE CHEST. History: Dyspnea, elevated D-dimer. Comparison: Chest radiograph 10/27/2023 Technique: Multiplanar CT images through the thorax were obtained following administration of IV contrast. MIP images and 3-D reconstructions were also acquired. FINDINGS: Heart is borderline enlarged. No pericardial effusion. Great vessels are unremarkable. There is motion artifact which degrades image quality. No pulmonary arterial filling defects are identified within limitations of the motion artifact. No pathologic adenopathy. 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 Multifocal left lung consolidation. Trace left pleural effusion. No pneumothorax. No suspicious lung masses or lung nodules. Within the visualized upper abdomen, the liver is fatty. The no acute osseous abnormalities. Impression: 1. No pulmonary embolism. 2. Multifocal left lung pneumonia Lab Results Last 24 Hours: 10/30/23 05:55 WBC 12.18 H RBC 3.91 L Hgb 11.9 L Hct 36.0 L MCV 92.1 MCH 30.4 MCHC 33.1 RDW Coeff of Chet 13.7 Plt Count 238 Immature Gran % (Auto) 1.1 Neut % (Auto) 82.8 H Lymph % (Auto) 9.5 L [place] % (Auto) 6.4 Eos % (Auto) 0.0 Baso % (Auto) 0.2 Neut # (Auto) 10.1 H Lymph # (Auto) 1.2 [place] # (Auto) 0.8 Eos # (Auto) 0.0 Baso # (Auto) 0.0 Immature Gran # (Auto) 0.1 Sodium 135.1 Potassium 3.96 Chloride 104.1 Carbon Dioxide 23.1 Anion Gap 11.86 BUN 15.5 Creatinine 0.65 Estimated GFR (MDRD) 125.00 BUN/Creatinine Ratio 23.84 Glucose 272.9 H Calcium 8.79 Total Bilirubin 0.50 AST 74.1 H D ALT 59.7 H Alkaline Phosphatase 47.5 L Total Protein 6.07 L Albumin 3.15 L Globulin 2.92 Albumin/Globulin Ratio 1.07 Procalcitonin 0.14 H Discharge Instructions Discharge Planning: Discharge Planning > 40 minutes If patient is discharged with left ventricular systolic dysfunction: NA Discharged with a beta agustina? [] If no, why not? [] Discharged with an bonnie/arb? [] If no, why not? [] DIAGNOSIS: COMMUNITY ACQUIRED PNEUMONIA DIET: DIABETIC ACTIVITY: TOLERATED FOLLOW-UP WITH PCP NEXT WEEK MEDICATIONS: DUONEB (NEBULIZER TREATMENTS) EVERY 4 HOURS PRN PREDNISONE 10 MG TWICE A DAY X 3 DAYS LEVAQUIN 500 MG X 7 DAYS Discharge Medications: Medications at Discharge (Home Meds & RX) metformin 1,000 mg tablet See Rx Instructions .Route .COMPLEX #60 tabs 10/13/22 losartan 100 mg tablet See Rx Instructions .Route .COMPLEX #30 tabs 10/20/22 pravastatin 40 mg tablet See Rx Instructions .Route .COMPLEX #30 tabs 10/20/22 diclofenac sodium 75 mg tablet,delayed release 75 mg PO ONCE 01/15/23 hydrocodone 10 mg-acetaminophen 325 mg tablet 1 tab PO BID PRN pain #50 tabs 10/11/23 azithromycin 250 mg tablet (Zithromax Z-Andrey) See Rx Instructions PO .COMPLEX #6 tabs 10/24/23 prednisone 10 mg tablet 10 mg PO BID 5 days #10 tabs 10/24/23 albuterol sulfate 90 mcg/actuation breath activated powder inhaler 2 inh inhalation Q4-6H PRN shortness of breath or wheezing #1 ea 10/25/23 amoxicillin 875 mg-potassium clavulanate 125 mg tablet 1 tab PO BID #10 tabs 10/25/23 Discharge Plan Discharge Discharge Orders: Discharge Patient (ONCE); Ordered 10/30/23 Ordered By: SONYA JOLLEY Activity Restrictions/Additional Instructions: DISCHARGE HOME TODAY DIAGNOSIS: COMMUNITY ACQUIRED PNEUMONIA DIET: DIABETIC ACTIVITY: TOLERATED FOLLOW-UP WITH PCP NEXT WEEK BE SURE TO HAVE DAILY YOGURT OR PROBIOTIC INTAKE MEDICATIONS: DUONEB (NEBULIZER TREATMENTS) EVERY 4 HOURS PRN PREDNISONE 10 MG TWICE A DAY X 3 DAYS LEVAQUIN 500 MG DAILY X 7 DAYS Instructions: Community Acquired Pneumonia (GEN) Patient Disposition: HOME SELF-CARE Prescriptions: New ipratropium-albuterol 0.5 mg-3 mg(2.5 mg base)/3 mL Solution For Nebulization 3 ml NEB RTQ4H PRN (Reason: shortness of breath or wheezing) Qty: 90 0RF levofloxacin 500 mg tablet 500 mg PO DAILY Qty: 7 0RF Continued metformin 1,000 mg tablet See Rx Instructions .ROUTE .COMPLEX Qty: 60 2RF Dose Instruction: TAKE ONE TABLET TWICE DAILY WITH FOOD GENERIC FOR GLUCOPHAGE Rx Instructions: TAKE ONE TABLET TWICE DAILY WITH FOOD GENERIC FOR GLUCOPHAGE pravastatin 40 mg tablet See Rx Instructions .ROUTE .COMPLEX Qty: 30 2RF Dose Instruction: TAKE ONE TABLET DAILY Rx Instructions: TAKE ONE TABLET DAILY losartan 100 mg tablet See Rx Instructions .ROUTE .COMPLEX Qty: 30 2RF Dose Instruction: TAKE ONE TABLET DAILY GENERIC FOR COZAAR Rx Instructions: TAKE ONE TABLET DAILY GENERIC FOR COZAAR hydrocodone-acetaminophen 10-325 mg tablet 1 tab PO BID PRN (Reason: pain) Qty: 50 0RF albuterol sulfate 90 mcg/actuation aerosol powdr breath activated 2 inh inhalation Q4-6H PRN (Reason: shortness of breath or wheezing) Qty: 1 0RF prednisone 10 mg tablet 10 mg PO BID 3 Days Qty: 6 0RF diclofenac sodium 75 mg tablet,delayed release (DR/EC) 75 mg PO ONCE Discontinued amoxicillin-pot clavulanate 875-125 mg tablet 1 tab PO BID Qty: 10 0RF azithromycin [Zithromax Z-Andrey] 250 mg tablet See Rx Instructions PO .COMPLEX Qty: 6 0RF Rx Instructions: For 250 mg dose pack: take 500 mg today (day 1), then 250 mg for 4 days (days 2-5) PO Did you review [place] INCIDENT RESPONSE CONSULTANT for ALL controlled substances?: No Discussed opioids are addictive and Narcan is available by prescription or from pharmacy.: No Condition: Stable Referrals: MAHNAZ MYRICK MD [Primary Care Provider] - 11/07/23 1:00 pm
[2023-10-30 09:56] VITALS: PULSE 80; RESP 20
[2023-10-30 14:12] LABS: SPECIMEN SOURCE Urine (.); STEP PNEUMO ORGANISM ID Not indicated. (.); STREP PNEUMO AG Negative (Negative); STREP PNEUMO BODY FLUID CULT Not indicated. (.)
== END 2023-10-30 11:40 | disposition home or self-care (01) | DRG 871 ==
LOC: ED 17:47 → MEDSURG B 22:31
PROVIDERS: ADMIT Hospitalist; ATTEND Nurse Practitioner Family